=== PATIENT | male | born 1960 | race Caucasian/White ===

== ENCOUNTER 2023-08-17 15:00 | Inpatient (IN) | payer MEDICARE, MEDICAID, SELFPAY ==
[2023-08-17] VITALS (33 sets, daily range): BP systolic 94–154; BP diastolic 59–103; PULSE 72–91; RESP 14–35; TEMP 36.4–36.7; O2SAT 87–98; BMI 29.0
--- NOTE | ~2023-08-17 | XR_ITS ---
XR chest 1V portable 08/18/2023 15:31 Indication: Shortness of breath and cough Procedure: AP portable chest Comparison: Comparison to multiple prior studies sequentially, with oldest reviewed study dated 10/08. Findings: Worsening bilateral airspace disease, left greater than right, compatible with pneumonia. S mall left pleural effusion. No pneumothorax. Stable cardiomediastinal silhouette. No acute osseous ab normality. Impression: 1: Worsening bilateral airspace disease, compatible with pneumonia. Reviewed, dictated and finalized at location L. DATION STAGE TEACHER Impression: 1: Worsening bilateral airspace disease, compatible with pneumonia.
--- NOTE | ~2023-08-17 | XR_ITS ---
XR chest 1V portable 08/17/2023 16:20 Indication: Cough and shortness of breath Procedure: 2 view chest Comparison: 10/14/2016 Findings: Patchy bilateral airspace disease, compatible with pneumonia. Cardiomegaly. Small left pleu ral effusion. No pneumothorax. Impression: 1: Patchy bilateral airspace disease, compatible with pneumonia. 2: Small left pleural effusion. Reviewed, dictated and finalized at location B. 'S OFFICER Impression: 1: Patchy bilateral airspace disease, compatible with pneumonia. 2: Small left pleural effusion.
--- NOTE | ~2023-08-17 | CT_ITS ---
EXAMINATION: CT brain wo con DATE: 08/17/2023 18:59 INDICATION: Altered mental status TECHNIQUE: Computed tomography (CT) of the head was performed without intravenous contrast. Sagittal and coronal reconstructions were performed. The mA was adjusted according to patient size. Iterative reconstruction technique was employed. The dose-length product was 681.00 mGy-cm. COMPARISON: None FINDINGS: There is a region of encephalomalacia extending from the body of the left caudate nucleus across the internal capsule, lentiform nucleus into the subinsular white matter consistent with chronic infarct. Additional small regions of encephalomalacia consistent with old infarcts at the posterior left temp oral lobe and at the inferomedial right cerebellar hemisphere. Additional small old lacunar infarcts at the head of the right caudate nucleus and bilateral thalami. No acute intracranial hemorrhage, acu te infarction or abnormal extra axial fluid collection. There is moderate scattered white matter hypo attenuation consistent with chronic small vessel ischemic disease. In addition to some ex vacuo dilat ion of the body the left lateral ventricle there is otherwise symmetric increased prominence of the s ulci and ventricles consistent with mild to moderate diffuse cerebral volume loss. No mass/mass effe ct. There is a small the shape and right globe with associated dystrophic calcifications consistent w ith phthisis bulbi. Some additional dystrophic calcification at the posterior medial left globe. Ther e is a region of subtly increased density within the posterior to posterolateral left globe which sug gests possible retinal detachment. Correlate with ophthalmic history . There is near complete opacifi cation of the paranasal sinuses with diffusely thickened sclerotic barker consistent with chronic sinu sitis. The bilateral mastoid air cells and middle ear cavities are clear. There is debris/cerumen at the bilateral external auditory canals. Intracranial calcified cerebral atherosclerosis is noted. IMPRESSION: 1. Several old infarcts in the bilateral basal ganglia, left cerebral hemisphere and right cerebral h emisphere. No acute intracranial process. 2. Likely age-related mild to moderate diffuse volume loss and moderate scattered white matter hypoat tenuation consistent with chronic small vessel ischemic disease. 3. Chronic pansinusitis. 4. Right-sided phthisis bulbi and suggestion of possible detached retina at the left globe. Correlate with ophthalmic history. Reviewed, dictated and finalized at location A. ON BALER IMPRESSION: 1. Several old infarcts in the bilateral basal ganglia, left cerebral hemispher e and right cerebral hemisphere. No acute intracranial process. 2. Likely age-related mild to moderate diffuse volume loss and moderate scatter ed white matter hypoattenuation consistent with chronic small vessel ischemic d isease. 3. Chronic pansinusitis. 4. Right-sided phthisis bulbi and suggestion of possible detached retina at the left globe. Correlate with ophthalmic history.
--- NOTE | ~2023-08-17 | XR_ITS ---
Portable chest x-ray Comparison: 08/18/2023 Clinical History: Pneumonia Findings: Small left pleural effusion is present. Extensive left lung consolidation and additional c onsolidation the right lung base, are stable findings from prior exam. Cardiomediastinal silhouette is stable. Bones and soft tissues are unremarkable. Impression: Stable extensive left lung consolidation, compatible with multilobar pneumonia. Right basilar consolidation, compatible with additional pneumonia. Small left pleural effusion. Reviewed, dictated and finalized at location . CE SECRETARY Impression: Stable extensive left lung consolidation, compatible with multilobar pneumonia. Right basilar consolidation, compatible with additional pneumonia. Small left pleural effusion.
--- NOTE | 2023-08-17 15:36 | ECG_ITS ---
Measurements Intervals [place] Rate: 76 P: MI: 0 QRS: 75 QRSD: 154 T: 29 QT: 464 QTc: 525 Interpretive Statements ATRIAL FIBRILLATION RIGHT BUNDLE BRANCH BLOCK ABNORMAL ECG NO PREVIOUS ECG AVAILABLE FOR COMPARISON Electronically Signed On 08-17-2023 16:44:16 BALANCE CLERK by Capo Reynolds D.O.
[2023-08-17 16:02] LABS: Basophils Absolute Auto 0.1 K/mm3 (0.0-0.1); Basophils Percent Auto 0.3 % (0.2-1.2); Eosinophils Percent Auto 0.1 % (0-4.4); Hematocrit 34.5 % (42.0-52.0); Hemoglobin 10.8 g/dL (14.0-18.0); Immature Granulocyte Absolute 0.18 K/mm3 (0.00-0.031); Immature Granulocyte Percent A 0.9 % (0-0.5); Lymphocytes Absolute Auto 0.99 K/mm3 (0.9-3.2); Mean Corpuscular HGB Conc 31.3 g/dl (32-36); Mean Corpuscular Hemoglobin 30.1 pg (26-34); Mean Corpuscular Volume 96.1 fl (80-100); Mean Platelet Volume 8.8 fl (7.4-10.4); Neutrophils Absolute Auto 17.5 K/mm3 (1.3-6.7); Neutrophils Percent Auto 88.7 % (45.5-73.1); Platelet Count Result 277 k/mm3 (150-375); Red Blood Count 3.59 M/mm3 (4.6-6.20); Red Cell Distribution Width 14.1 % (11.5-14.5); White Blood Count 19.7 K/mm3 (4.5-10.0)
--- NOTE | 2023-08-17 16:09 | PC.NURSE ---
catherine catheter exchanged on arrival to obtain clean urine sample. MD Vera aware.
[2023-08-17 16:14] LABS: Alanine Aminotransferase 14 U/L (6-50); Albumin Level 3.2 g/dL (3.5-5.1); Alkaline Phosphatase 88 U/L (38-126); Anion Gap 10 mmol/L (8-16); Aspartate Amino Transferase 25 U/L (17-59); Bilirubin,Total 0.8 mg/dL (0.2-1.3); Blood Urea Nitrogen 22 mg/dL (9-20); Calcium 8.5 mg/dL (8.4-10.2); Carbon Dioxide 36 mmol/L (22-30); Chloride 91 mmol/L (98-107); Estimated CRCL calculation 26 ml/min; Estimated Glomerular Filt Rate 21; Glucose 73 mg/dL (65-110); Potassium 3.3 mmol/L (3.4-5.0); Sodium 137 mmol/L (137-145)
--- NOTE | 2023-08-17 16:26 | PC.NURSE ---
per Patient, he lives in custodial in [place] but unsure name of custodial.
--- NOTE | 2023-08-17 16:31 | PC.NURSE ---
Called patient home number on dialysis information sheet and confirmed patient resides at [facility].
[2023-08-17 18:19] LABS: Alveolar/Arterial O2 Gradient 185.7 mmHg; Base Excess ABG 13.7 mEq/l (+/-2.0); Carboxyhemoglobin 1.1 % THb (0-2.0); Fractional Inspired Oxygen 40 %; HCO3 ABG 37.8 mEq/l (22.0-26.0); Methemoglobin ABG 0.3 %THb (0-1.5); Oxygen Content ABG 13.2 %vol (16.0-22.0); PCO2 ABG 45.8 mmHg (35.0-45.0); PO2 FiO2 Ratio Arterial Blood 1.17 %; Reduced Hemoglobin 14.9 %THb (0-5.0); Total Hemoglobin 11.2 g/dL (12.0-18.0)
[2023-08-17 18:21] LABS: PO2 ABG 46.8 mmHg (80.0-100.0); pH ABG 7.535 (7.350-7.450)
[2023-08-17 18:22] LABS: Device NASAL CANNULA; Oxyhemoglobin 83.7 % THb (90.0-100.0); Site Drawn RIGHT BRACHIAL
--- NOTE | 2023-08-17 18:29 | ED.URI ---
HPI - URI/Sore Throat General Chief Complaint: Upper Respiratory Infection <Annmarie Taveras PA-C - Last Filed: 08/18/23 03:59> Stated Complaint: cough, low o2 <Annmarie Taveras PA-C - Last Filed: 08/18/23 03:59> Time Seen by Provider: 08/17/23 16:52 <CALLIE Patel Last Filed: 08/18/23 03:59> Source: patient and old records reviewed <CALLIE Patel Last Filed: 08/18/23 03:59> Mode of arrival: EMS <CALLIE Patel Last Filed: 08/18/23 03:59> Limitations: clinical condition <CALLIE Patel Last Filed: 08/18/23 03:59> History of Present Illness HPI Narrative: Patient is a 63 y/o male, with PMH of ESRD on hemodialysis MWF (Dr. Morrissey), legal blindess, HTN, who presents the ED via EMS with report of hypoxia. Patient is a resident of [facility]. Patient is a poor historian. Per EMS report, patient was noted be hypoxic in the 60s at his dialysis appointment today. He was placed on 2 L nasal cannula by EMS, ranging in the upper 80s to low 90s. He has been on 5 L nasal cannula in the ED with oxygen saturations above 90. Patient does not typically require oxygen. He has had a productive cough for the last 2 months reportedly. He is unable to provide any further information for me. <CALLIE Patel Last Filed: 08/18/23 03:59> Related Data Home Medications: Home Medications Medication Instructions Recorded Confirmed Keppra 500 mg PO BID 08/17/23 08/17/23 Miralax 17 g PO PRN PRN Constipation 08/17/23 08/17/23 Norvasc 10 mg PO DAILY 08/17/23 08/17/23 Prozac 20 mg PO DAILY 08/17/23 08/17/23 Singulair 1 tablet PO HS 08/17/23 08/17/23 Tums 750 mg PO HS 08/17/23 08/17/23 amlodipine 10 mg tablet 10 mg PO DAILY 08/17/23 08/17/23 apixaban 2.5 mg tablet (Eliquis) 2.5 mg PO BID 08/17/23 08/17/23 aspirin 81 mg PO DAILY 08/17/23 08/17/23 atorvastatin 20 mg tablet 20 mg PO DAILY 08/17/23 08/17/23 carvedilol 3.125 mg tablet 3.125 mg PO BID 08/17/23 08/17/23 cholecalciferol (vitamin D3) 2,000 units PO DAILY 08/17/23 08/17/23 fluoxetine 20 mg capsule 20 mg PO DAILY 08/17/23 08/17/23 insulin glargine 100 unit/mL (3 15 unit subcut HS 08/17/23 08/17/23 mL) subcutaneous pen (Lantus Solostar U-100 Insulin) isosorbide mononitrate 60 mg 60 mg PO BID 08/17/23 08/17/23 tablet,extended release 24 hr levetiracetam 500 mg tablet 500 mg PO BID 08/17/23 08/17/23 melatonin 5 mg PO HS 08/17/23 08/17/23 montelukast 10 mg tablet 10 mg PO DAILY 08/17/23 08/17/23 pantoprazole 40 mg tablet,delayed 40 mg PO DAILY 08/17/23 08/17/23 release pen needle, diabetic, safety 30 08/17/23 08/17/23 gauge x 5/16 (Easy Touch Safety Pen Needle) pentoxifylline 400 mg 400 mg PO TID 08/17/23 08/17/23 tablet,extended release tamsulosin 0.4 mg capsule 0.4 mg PO DAILY 08/17/23 08/17/23 <Annmarie Taveras PA-C - Last Filed: 08/18/23 03:59> Allergies/Adverse Reactions: Allergies Allergy/AdvReac Type Severity Reaction Status Date / Time bacitracin Allergy Unknown Unknown Verified 08/17/23 22:42 gramicidin D Allergy Unknown Unknown Verified 08/17/23 22:42 neomycin Allergy Unknown Unknown Verified 08/18/23 08:08 polymyxin B Allergy Unknown Unknown Verified 08/17/23 22:42 Dairy Allergy Unknown Unknown Uncoded 08/17/23 22:42 <Annmarie Taveras PA-C - Last Filed: 08/18/23 03:59> Review of Systems Review of Systems: ROS unobtainable: Yes unobtainable due to medical condition <Annmarie Taveras PA-C - Last Filed: 08/18/23 03:59> [facility] Social History Social History: Social History Smoking status: Never smoker Alcohol intake: former Substance use: former Substance use type: crack/cocaine Last use: 2012 Spiritual care concerns: No <Annmarie Taveras PA-C - Last Filed: 08/18/23 03:59> Exam Narrative: GENERAL: Chronic
[2023-08-17 19:06] LABS: Lactic Acid Reflex 1.2 mmol/L (0.7-2.0); Magnesium 1.9 mg/dL (1.6-2.3)
[2023-08-17 19:11] LABS: Appearance Urine Turbid (Clear); Bacteria Urine 4+ /hpf; Bilirubin Urine Negative (Negative); Blood Urine 2+ (Negative); Color Urine Yellow (Yellow); Glucose Urine UA Negative (Negative); Ketones Urine 1+ mg/dL (Negative); Leukocyte Esterase Ur 3+ LEU/UL (Negative); Need Manual Microscopic Reviewed; Nitrate Urine Negative (Negative); Protein Urine 4+ mg/dL (Negative); RBC Urine >100 /hpf (0-2); Specific Grav Ur 1.026 (1.001-1.035); Squamous Epithelial Cell Urine Many /hpf (Few); WBC Urine >100 /hpf; pH Urine 6.5 (5.0-9.0)
[2023-08-17 19:15] LABS: Amorphous Sediment Urine Present
[2023-08-17 19:16] LABS: Add Urine Microscopic? YES; NT Pro B Type Natriuretic Pept > 30000 pg/mL (19.9-100)
[2023-08-17] MEDS: AZITHROMYCIN 500 MG/NS 250 ML 500 MG/250 ML BAG 250 MG IVPB (20:00)
[2023-08-17 20:41] LABS: Glucose Point of Care 80 mg/dl (65-105)
[2023-08-17 21:28] LABS: Influenza A QL RT-PCR Negative (Negative); Influenza B QL RT-PCR Negative (Negative); RSV RNA, RT-PCR Negative (Negative); SARS-CoV-2 RNA PCR Negative (Negative)
--- NOTE | 2023-08-17 21:56 | ADMGEN ---
This patient, Ja Griffith, was admitted to [facility] Surg Room 332-02. Patient/family oriented to hospital policies and general routines including ID bracelet, bed and alarms, visiting hours, pain management, procedures, bathroom and other care routines, personal items, smoking policy, room service/diet, and visiting hours. Information on how to activate the Rapid Response Team has been discussed. Patient/Family are encouraged to report perceived risks to care and to ask questions if they do not understand what they are told or what they should do.
--- NOTE | 2023-08-17 23:48 | PC.NURSE ---
This RN called pt brother, [place], to receive admission information as pt is a poor historian. This RN used external med records and paperwork from dialysis facility to complete patient home med records.
[2023-08-18] VITALS (24 sets, daily range): BP systolic 119–156; BP diastolic 59–69; PULSE 62–89; RESP 14–24; TEMP 36.4–37.3; O2SAT 90–95
[2023-08-18 06:49] LABS: Basophils Absolute Auto 0.1 K/mm3 (0.0-0.1); Basophils Percent Auto 0.4 % (0.2-1.2); Eosinophils Percent Auto 0.1 % (0-4.4); Hematocrit 31.6 % (42.0-52.0); Hemoglobin 9.8 g/dL (14.0-18.0); Immature Granulocyte Absolute 0.15 K/mm3 (0.00-0.031); Immature Granulocyte Percent A 0.9 % (0-0.5); Lymphocytes Absolute Auto 0.69 K/mm3 (0.9-3.2); Lymphocytes Percent Auto 4.1 % (18.3-44.2); Mean Corpuscular Hemoglobin 30.6 pg (26-34); Mean Corpuscular Volume 98.8 fl (80-100); Mean Platelet Volume 8.7 fl (7.4-10.4); Monocytes Percent Auto 5.7 % (2.6-8.5); Neutrophils Percent Auto 88.8 % (45.5-73.1); Platelet Count Result 233 k/mm3 (150-375); Red Cell Distribution Width 14.3 % (11.5-14.5); White Blood Count 16.9 K/mm3 (4.5-10.0)
[2023-08-18 07:16] LABS: Alanine Aminotransferase 14 U/L (6-50); Albumin Level 2.9 g/dL (3.5-5.1); Alkaline Phosphatase 88 U/L (38-126); Anion Gap 9 mmol/L (8-16); Aspartate Amino Transferase 21 U/L (17-59); Bilirubin,Total 0.7 mg/dL (0.2-1.3); Blood Urea Nitrogen 28 mg/dL (9-20); Calcium 7.9 mg/dL (8.4-10.2); Carbon Dioxide 33 mmol/L (22-30); Chloride 91 mmol/L (98-107); Estimated CRCL calculation 16 ml/min; Estimated Glomerular Filt Rate 14; Glucose 187 mg/dL (65-110); Potassium 3.5 mmol/L (3.4-5.0); Sodium 133 mmol/L (137-145)
[2023-08-18 07:37] LABS: Glucose Point of Care 177 mg/dl (65-105)
[2023-08-18 08:01] LABS: Hepatitis B Surface Antigen Negative (Negative)
--- NOTE | 2023-08-18 08:03 | PM.IMPN ---
Progress Note: A&P Assessment and Plan (1) Pneumonia: Qualifiers: Laterality: bilateral Lung location: unspecified part of lung Pneumonia type: due to unspecified organism Qualified Code(s): J18.9 - Pneumonia, unspecified organism Code(s): J18.9 - Pneumonia, unspecified organism Status: Acute (2) Acute hypoxic respiratory failure: Code(s): J96.01 - Acute respiratory failure with hypoxia Status: Acute (3) ESRD on hemodialysis: Code(s): N18.6 - End stage renal disease; Z99.2 - Dependence on renal dialysis Status: Acute Plan 63M, a poor historian who resides at [facility] w/ [facility] ESRD on HD MWF (Dr. Morrissey), legal blindness, IDDM, left BKA, diabetic nephropathy, HTN, a fib on eliquis, BPH, hx of stroke, seizures, anxiety presented with reports of hypoxia in 60's at his dialysis appointment on 08/17, on 6L NC by the time he was admitted. # acute hypoxic respiratory failure - 2/2 to CAP. cont ceftriaxone and doxycycline started on 08/17 - f/u wbc and blood cultures - telemetry and cont pulse ox until weaned off oxygen - wheezing on exam, no hx of lung disease, start duonebs on 08/18 and re-assess. he does take montelukast at home # UTI - dx on admission, however urine sample dirty. being covered otherwise, follow up on urine cultures # ESRD on HD MWF - nephrology consulted. continue regular dialysis sessions # NIDDM - accuchecks and LDISS # HTN - controlled. cpm # a fib on eliquis - cont tele and eliquis FEN: renal diabetic diet, saline lock IV GI prophylaxis: on protonix DVT prophylaxis: eliquis Lines: pIV Code Status: Full Code Dispo: stable. 50+ minutes spent on chart review, patient interaction, family planning, and assessment and plan. Subjective Date/time seen: 08/18/23 08:03 Interval history: patient resting in bed, he reports feeling fine. he is quite the poor historian although. when asked if he ever smoked he states, maybe Review of Systems Review of Systems: All systems reviewed & are unremarkable except as noted in HPI and below Exam Const: General: comfortable and no acute distress Other: quite unwilling to participate with exam at the moment Resp: Effort & Inspection: normal respiratory effort Auscultation: wheezes Cardio: Rate: regular rate Rhythm: regular rhythm Heart sounds: no gallops, no murmurs and no rubs Other: pulses 2+ throughout Extrem: General: no edema Objective Data Vital Signs Vital Signs: Vital Signs - 24 hr 08/17/23 15:01 08/17/23 16:20 08/17/23 16:20 Temperature 98.1 F Pulse Rate 79 74 Respiratory Rate 22 H 25 H Blood Pressure 132/72 129/85 Pulse Oximetry 91 93 95 Oxygen Delivery Nasal Cannula Nasal Cannula Oxygen Flow Rate 5 4 08/17/23 16:20 08/17/23 16:30 08/17/23 16:31 Temperature Pulse Rate 86 78 81 Respiratory Rate 31 H 27 H 27 H Blood Pressure 133/71 Pulse Oximetry 95 94 94 Oxygen Delivery Oxygen Flow Rate 08/17/23 16:45 08/17/23 16:46 08/17/23 17:00 Temperature Pulse Rate 85 91 91 Respiratory Rate 32 H 32 H 31 H Blood Pressure 143/88 H Pulse Oximetry 92 92 Oxygen Delivery Oxygen Flow Rate 08/17/23 17:01 08/17/23 17:15 08/17/23 17:16 Temperature Pulse Rate 86 84 83 Respiratory Rate 31 H 17 14 Blood Pressure 141/70 H 94/82 L Pulse Oximetry 94 98 95 Oxygen Delivery Oxygen Flow Rate 08/17/23 17:30 08/17/23 17:31 08/17/23 17:45 Temperature Pulse Rate 79 75 83 Respiratory Rate 27 H 32 H 26 H Blood Pressure 146/79 H Pulse Oximetry 90 Oxygen Delivery Oxygen Flow Rate 08/17/23 17:46 08/17/23 18:00 08/17/23 18:02 Temperature Pulse Rate 77 76 76 Respiratory Rate 18 26 H 34 H Blood Pressure 137/103 H 127/89 Pulse Oximetry 87 L 92 93 Oxygen Delivery Oxygen Flow Rate 08/17/23 18:45 08/17/23 18:50 08/17/23 19:01 Temperature Pulse Rate 81 Respiratory Rate
--- NOTE | 2023-08-18 08:14 | HP_ITS ---
This document was recreated as a H&P on 08/19/23. The original document was signed by Jody Hendricks MD on 08/18/23 0815. Progress Note: A&P Assessment and Plan (1) Pneumonia: Qualifiers: Laterality: bilateral Lung location: unspecified part of lung Pneumonia type: due to unspecified organism Qualified Code(s): J18.9 - Pneumonia, unspecified organism Code(s): J18.9 - Pneumonia, unspecified organism Status: Acute (2) Acute hypoxic respiratory failure: Code(s): J96.01 - Acute respiratory failure with hypoxia Status: Acute (3) ESRD on hemodialysis: Code(s): N18.6 - End stage renal disease; Z99.2 - Dependence on renal dialysis Status: Acute Plan 63M, a poor historian who resides at [facility] / [facility] ESRD on HD MWF (Dr. Morrissey), legal blindness, IDDM, left BKA, diabetic nephropathy, HTN, a fib on eliquis, BPH, hx of stroke, seizures, anxiety presented with reports of hypoxia in 60's at his dialysis appointment on 08/17, on 6L NC by the time he was admitted. # acute hypoxic respiratory failure - 2/2 to CAP. cont ceftriaxone and doxycycline started on 08/17 - f/u wbc and blood cultures - telemetry and cont pulse ox until weaned off oxygen - wheezing on exam, no hx of lung disease, start duonebs on 08/18 and re-assess. he does take montelukast at home # UTI - dx on admission, however urine sample dirty. being covered otherwise, follow up on urine cultures # ESRD on HD MWF - nephrology consulted. continue regular dialysis sessions # NIDDM - accuchecks and LDISS # HTN - controlled. cpm # a fib on eliquis - cont tele and eliquis FEN: renal diabetic diet, saline lock IV GI prophylaxis: on protonix DVT prophylaxis: eliquis Lines: pIV Code Status: Full Code Dispo: stable. 50+ minutes spent on chart review, patient interaction, family planning, and assessment and plan. Subjective Date/time seen: 08/18/23 08:03 Interval history: patient resting in bed, he reports feeling fine. he is quite the poor historian although. when asked if he ever smoked he states, maybe Review of Systems Review of Systems: All systems reviewed & are unremarkable except as noted in HPI and below Exam Const: General: comfortable and no acute distress Other: quite unwilling to participate with exam at the moment Resp: Effort & Inspection: normal respiratory effort Auscultation: wheezes Cardio: Rate: regular rate Rhythm: regular rhythm Heart sounds: no gallops, no murmurs and no rubs Other: pulses 2+ throughout Extrem: General: no edema Objective Data Vital Signs Vital Signs: Vital Signs - 24 hr 08/17/23 15:01 08/17/23 16:20 08/17/23 16:20 Temperature 98.1 F Pulse Rate 79 74 Respiratory Rate 22 H 25 H Blood Pressure 132/72 129/85 Pulse Oximetry 91 93 95 Oxygen Delivery Nasal Cannula Nasal Cannula Oxygen Flow Rate 5 4 08/17/23 16:20 08/17/23 16:30 08/17/23 16:31 Temperature Pulse Rate 86 78 81 Respiratory Rate 31 H 27 H 27 H Blood Pressure 133/71 Pulse Oximetry 95 94 94 Oxygen Delivery Oxygen Flow Rate 08/17/23 16:45 08/17/23 16:46 08/17/23 17:00 Temperature Pulse Rate 85 91 91 Respiratory Rate 32 H 32 H 31 H Blood Pressure 143/88 H Pulse Oximetry 92 92 Oxygen Delivery Oxygen Flow Rate 08/17/23 17:01 08/17/23 17:15 08/17/23 17:16 Temperature Pulse Rate 86 84 83 Respiratory Rate 31 H 17 14
[2023-08-18 08:19] LABS: Hepatitis B Surface Anti Res Negative
[2023-08-18] MEDS: ALBUTEROL SULFATE NEB 2.5 MG/3 ML INH INHALATION ×3 (08:24→19:27)
[2023-08-18] MEDS: IPRATROPIUM BR 0.02% INH SOLN 0.5 MG/2.5 ML VIAL INHALATION ×3 (08:24→19:27)
[2023-08-18] MEDS: DOXYCYCLINE 100 MG/NS 100 ML 100 MG/100 ML BAG IVPB ×2 (10:57→20:43)
--- NOTE | 2023-08-18 11:10 | PM.CNNEP ---
Assessment and Plan Assessment and plan (1) End stage renal disease: Code(s): N18.6 - End stage renal disease Status: Chronic Assessment and Plan: HD tomorrow continue Thursday, Thursday, Thursday dialysis schedule folloe electrolytes, clearance, and volume status (2) Acute hypoxic respiratory failure: Code(s): J96.01 - Acute respiratory failure with hypoxia Status: Acute Assessment and Plan: though to be secondary to #3 continue oxygen support nebulizer treatments as needed follow respiratory status (3) Pneumonia: Qualifiers: Laterality: bilateral Lung location: unspecified part of lung Pneumonia type: due to unspecified organism Qualified Code(s): J18.9 - Pneumonia, unspecified organism Code(s): J18.9 - Pneumonia, unspecified organism Status: Acute Assessment and Plan: as suggested by admission imaging follow culture data on antibiotics wean supplemental oxygen (4) Urinary tract infection: Qualifiers: Encounter type: initial encounter Indwelling urinary catheter type: indwelling urethral catheter Urinary tract infection type: catheter-associated UTI Qualified Code(s): T83.511A - Infection and inflammatory reaction due to indwelling urethral catheter, initial encounter; N39.0 - Urinary tract infection, site not specified Code(s): N39.0 - Urinary tract infection, site not specified Status: Acute Assessment and Plan: admission UA suggestive follow urine culture results on antibiotics (5) Hypertension: Code(s): I10 - Essential (primary) hypertension Status: Chronic Assessment and Plan: reasonable control follow trend of hemodynamics (6) Type 2 diabetes mellitus: Code(s): E11.9 - Type 2 diabetes mellitus without complications Status: Chronic Assessment and Plan: follow accu-cheks glycemic control per hospitalists I will continue follow the patient with you remains hospitalized and make recommendations as needed. Thank you for allowing me to participate in the care this patient. History of Present Illness Reason for Consult Consult date: 08/18/23 Reason for consult: end stage renal disease Chief Complaint Chief complaint: PNA, Acute Hypoxic Respiratory Failure, UTI, ESRD History of Present Illness Narrative: Most of the information I have obtained is from review of the electronic medical record as well as discussion with his outpatient dialysis unit as his difficult to get a full and complete history from the patient as he is a poor historian. The patient is a 63-year-old male with a past medical history as outlined below who presented to [facility] via EMS for further evaluation of hypoxia. Apparently, the patient went to his scheduled dialysis appointment yesterday and the dialysis nursing staff noted that he was quite hypoxic with oxygen saturations of 60% on room air. EMS was called due to this issue and 2 L of supplemental oxygen were applied with his oxygen saturations improving to the high 80s to low 90s percentile range. He was subsequent transferred to the emergency room for further assessment. By the time of his arrival to the emergency room, he was requiring 5 L of oxygen to maintain his oxygen saturations. He typically does not require oxygen although on further questioning and review of records, he apparently has been having a cough for the last 2 months. His ABG demonstrated no significant respiratory acidosis or CO2 retention but did confirm his hypoxia with an oxygen saturation of 87% on 5 L and hence his oxygen was increased to 6 L. His CBC was remarkable for an elevated white blood cell count of 19.7 with a neutrophil predominance but no bandemia. Lactic acid was normal and his chest x-ray was consistent with what appeared to be pneumonia. Viral swabs were negative. Blood cultures were obtained and he was
[2023-08-18 12:30] LABS: Glucose Point of Care 212 mg/dl (65-105)
[2023-08-18 15:13] LABS: Alveolar/Arterial O2 Gradient 244.3 mmHg; Base Excess ABG 7.2 mEq/l (+/-2.0); Fractional Inspired Oxygen 48 %; Oxygen Content ABG 13.5 %vol (16.0-22.0); Oxygen Saturation ABG 89.3 % (95.0-100.0); PO2 ABG 51.6 mmHg (80.0-100.0); PO2 FiO2 Ratio Arterial Blood 1.07 %; pH ABG 7.497 (7.350-7.450)
[2023-08-18 15:20] LABS: Device HIGH FLOW NASAL CANN; Modified Allen's Test Pass; Oxyhemoglobin 87.4 % THb (90.0-100.0); Site Drawn RIGHT RADIAL
[2023-08-18 17:12] LABS: Glucose Point of Care 241 mg/dl (65-105)
[2023-08-18] MEDS: MEROPENEM 1 GM/NS 100 ML 1 GM/100 ML BAG IVPB (18:11)
[2023-08-18] MEDS: INSULIN ASPART (*BKC) 100 UNITS/ML SUB-Q (19:11)
--- NOTE | 2023-08-18 20:37 | PC.NURSE ---
This patient, Ja Griffith, was received from [[id number] ] on 08/18/23 at 1800. Patient/family oriented to unit policies and routines
[2023-08-18 21:18] LABS: Glucose Point of Care 221 mg/dl (65-105)
[2023-08-19] VITALS (45 sets, daily range): BP systolic 130–164; BP diastolic 55–96; PULSE 60–110; RESP 16–24; TEMP 36.1–37.9; O2SAT 91–100
[2023-08-19] MEDS: IPRATROPIUM BR 0.02% INH SOLN 0.5 MG/2.5 ML VIAL INHALATION ×3 (01:34→20:06)
[2023-08-19] MEDS: ALBUTEROL SULFATE NEB 2.5 MG/3 ML INH INHALATION ×3 (01:34→20:06)
[2023-08-19 05:10] LABS: Basophils Absolute Auto 0.1 K/mm3 (0.0-0.1); Basophils Percent Auto 0.4 % (0.2-1.2); Eosinophils Percent Auto 0.1 % (0-4.4); Hemoglobin 9.8 g/dL (14.0-18.0); Immature Granulocyte Absolute 0.36 K/mm3 (0.00-0.031); Immature Granulocyte Percent A 2.1 % (0-0.5); Lymphocytes Absolute Auto 0.75 K/mm3 (0.9-3.2); Lymphocytes Percent Auto 4.4 % (18.3-44.2); Mean Corpuscular HGB Conc 31.6 g/dl (32-36); Mean Corpuscular Hemoglobin 30.3 pg (26-34); Monocytes Absolute Auto 0.8 K/mm3 (0.1-0.6); Monocytes Percent Auto 4.5 % (2.6-8.5); Neutrophils Absolute Auto 15.1 K/mm3 (1.3-6.7); Neutrophils Percent Auto 88.5 % (45.5-73.1); Platelet Count Result 214 k/mm3 (150-375); Red Blood Count 3.23 M/mm3 (4.6-6.20); Red Cell Distribution Width 14.3 % (11.5-14.5); White Blood Count 17.1 K/mm3 (4.5-10.0)
[2023-08-19 05:32] LABS: Vancomycin Random 16.6 ug/mL (10-20)
[2023-08-19 05:34] LABS: Anion Gap 13 mmol/L (8-16); Blood Urea Nitrogen 45 mg/dL (9-20); Calcium 7.9 mg/dL (8.4-10.2); Carbon Dioxide 27 mmol/L (22-30); Chloride 85 mmol/L (98-107); Estimated CRCL calculation 13 ml/min; Estimated Glomerular Filt Rate 11; Glucose 216 mg/dL (65-110); Potassium 3.8 mmol/L (3.4-5.0); Sodium 125 mmol/L (137-145)
[2023-08-19] MEDS: DOXYCYCLINE 100 MG/NS 100 ML 100 MG/100 ML BAG IVPB ×2 (07:15→20:49)
--- NOTE | 2023-08-19 08:10 | PM.IMPN ---
Progress Note: A&P Assessment and Plan (1) Pneumonia: Qualifiers: Laterality: bilateral Lung location: unspecified part of lung Pneumonia type: due to unspecified organism Qualified Code(s): J18.9 - Pneumonia, unspecified organism Code(s): J18.9 - Pneumonia, unspecified organism Status: Acute (2) Acute hypoxic respiratory failure: Code(s): J96.01 - Acute respiratory failure with hypoxia Status: Acute (3) ESRD on hemodialysis: Code(s): N18.6 - End stage renal disease; Z99.2 - Dependence on renal dialysis Status: Acute (4) Urinary tract infection: Qualifiers: Encounter type: initial encounter Indwelling urinary catheter type: indwelling urethral catheter Urinary tract infection type: catheter-associated UTI Qualified Code(s): T83.511A - Infection and inflammatory reaction due to indwelling urethral catheter, initial encounter; N39.0 - Urinary tract infection, site not specified Code(s): N39.0 - Urinary tract infection, site not specified Status: Acute Plan 63M, a poor historian who resides at [facility] / [place] ESRD on HD MWF (Dr. Morrissey),?legal blindness, IDDM, left BKA, diabetic nephropathy, HTN, a fib on eliquis, BPH, hx of stroke, seizures, anxiety presented with reports of hypoxia in 60's at his dialysis appointment on 08/17, on 6L NC by the time he was admitted. # acute hypoxic respiratory failure - 2/2 to?CAP. cont ceftriaxone and doxycycline started on 08/17 - f/u wbc and blood cultures, and procalcitonin - telemetry and cont pulse ox until weaned off oxygen - wheezing on exam, no hx of lung disease, start duonebs on 08/18 and re-assess. he does take montelukast at home - 08/18 in evening, desaturations. transferred IMU and on 08/19 is stable on 40L HFNC at 60% fio2. He isn't symptomatic, however CXR looks worse. ABG hypercapnia resolved. wheezing resolved. on 08/18 abx switched to cefepime and vancomycin, along with doxycycline. pending legionella and pneumococcal urinary antigens and sputum culture. stable on morning of 08/19, if need can upgrade to BIPAP and then ICU ultimately. nares MRSA positive, in light of his worsening status just 12 hours ago it behooves this patient to have double MRSA coverage for at least another day. # acute hyponatremia - spoke with Dr. Coelho, reportedly from dialysis center he is always waxing and waning from A&Ox1-3. this appears to be his baseline. he is to go for dialysis today, and with that will defer sodium mgmt to nephrology. cont daily BMP otherwise. # UTI - dx on admission, however urine sample dirty. being covered otherwise, follow up on urine cultures # ESRD on HD MWF - nephrology consulted. continue regular dialysis sessions # NIDDM - accuchecks and LDISS # HTN - controlled. cpm # a fib on eliquis - cont tele and eliquis FEN: renal diabetic diet, saline lock IV GI prophylaxis: on protonix DVT prophylaxis: eliquis Lines: pIV Code Status: Full Code. guarded More than 35 minutes spent on chart review, patient interaction and assessment and plan. Subjective Date/time seen: 08/19/23 08:10 Interval history: yesterday evening patient oxygen did not hold. he was upgraded to IMU, now on HFNC 40L/min w/ 60% fio2, however has been stable on that. he has never appears in respiratory distress although, and always reports no symptoms. he doesn't participate with exam Review of Systems Review of Systems: All systems reviewed & are unremarkable except as noted in HPI and below Exam Const: General: comfortable and no acute distress Other: A&Ox2, flat affect, limited participation with exam HENMT: Mouth: Yes dry mucous membranes Resp: Effort & Inspection: abnormal respiratory effort Cardio: Rate: regular rate Rhythm: regular rhythm Heart sounds: no gallops, no murmurs and no rubs GI: GI Palp: Yes Soft to palpation and No Tenderness to palpation present (GI) Extrem:
[2023-08-19 08:14] LABS: Glucose Point of Care 201 mg/dl (65-105)
[2023-08-19] MEDS: INSULIN ASPART (*BKC) 100 UNITS/ML SUB-Q (08:48)
[2023-08-19] MEDS: MEROPENEM 1 GM/NS 100 ML 1 GM/100 ML BAG IVPB (09:17)
[2023-08-19 12:06] LABS: Glucose Point of Care 165 mg/dl (65-105)
[2023-08-19] MEDS: HEPARIN SODIUM 1,000 UNITS/ML VIAL 2000 UNITS IV PUSH (14:19)
[2023-08-19] MEDS: HEPARIN SODIUM 1,000 UNITS/ML VIAL 500 UNITS IV PUSH ×3 (14:22→16:22)
--- NOTE | 2023-08-19 15:00 | PM.PNNEP ---
Progress Note: A&P Assessment and Plan (1) End stage renal disease: Code(s): N18.6 - End stage renal disease Status: Chronic Assessment and Plan: HD today continue Thursday, Thursday, Thursday dialysis schedule folloe electrolytes, clearance, and volume status (2) Acute hypoxic respiratory failure: Code(s): J96.01 - Acute respiratory failure with hypoxia Status: Acute Assessment and Plan: though to be secondary to #3 continue oxygen support nebulizer treatments as needed follow respiratory status (3) Pneumonia: Qualifiers: Laterality: bilateral Lung location: unspecified part of lung Pneumonia type: due to unspecified organism Qualified Code(s): J18.9 - Pneumonia, unspecified organism Code(s): J18.9 - Pneumonia, unspecified organism Status: Acute Assessment and Plan: as suggested by admission imaging follow culture data on antibiotics wean supplemental oxygen (4) Urinary tract infection: Qualifiers: Encounter type: initial encounter Indwelling urinary catheter type: indwelling urethral catheter Urinary tract infection type: catheter-associated UTI Qualified Code(s): T83.511A - Infection and inflammatory reaction due to indwelling urethral catheter, initial encounter; N39.0 - Urinary tract infection, site not specified Code(s): N39.0 - Urinary tract infection, site not specified Status: Acute Assessment and Plan: admission UA suggestive follow urine culture results on antibiotics (5) Hypertension: Code(s): I10 - Essential (primary) hypertension Status: Chronic Assessment and Plan: reasonable control follow trend of hemodynamics (6) Type 2 diabetes mellitus: Code(s): E11.9 - Type 2 diabetes mellitus without complications Status: Chronic Assessment and Plan: follow accu-cheks glycemic control per hospitalists Will continue to follow. Subjective Date/time seen: 08/19/23 15:00 Interval history: Follow-up for end stage renal disease on hemodialysis. Tolerating hemodialysis treatment at the time of my visit (seen on HD at 2:50PM); increasing oxygen requirements overnight but patient never reported any worsening symptoms of shortness of breath or difficulty breathing. Exam Narrative: General: WD/WN male in NAD Heart: normal S1 and S2; no rub Lungs: coarse breath sounds Abdomen: soft, nontender, nondistended, positive bowel sounds Extremities: no cyanosis or clubbing; no edema Skin: warm and dry Objective Data Vital Signs Vital Signs: Vital Signs Temp Pulse Resp BP Pulse Ox O2 Del Method O2 Flow Rate 08/19/23 14:15 64 20 97 High Flow Therapy with Na 34 08/19/23 14:00 87 08/19/23 13:20 97 F L 110 H 24 H 130/65 91 08/19/23 12:00 98 F 78 20 149/66 H 98 08/19/23 12:00 90 08/19/23 12:00 97 High Flow Therapy with Na 35 08/19/23 10:00 60 08/19/23 08:00 77 08/19/23 10:10 64 20 97 High Flow Therapy with Na 35 08/19/23 09:56 74 20 100 High Flow Therapy with Na 35 08/19/23 08:00 100 High Flow Therapy with Na 35 08/19/23 07:33 79 20 08/19/23 07:29 98.2 F 76 20 140/65 97 08/19/23 07:19 78 20 08/19/23 07:19 78 20 100 High Flow Therapy with Na 40 08/19/23 05:58 80 08/19/23 04:00 85 08/19/23 04:00 97.9 F 88 16 148/69 H 98 08/19/23 03:32 95 High Flow Therapy with Na 15 08/19/23 02:00 86 08/19/23 01:46 88 20 08/19/23 01:35 86 20 08/18/23 22:00 88 20 92 High Flow Therapy with Na 40 08/19/23 00:00 83 08/18/23 23:56 95 High Flow Therapy with Na 15 08/18/23 23:53 98.6 F 80 18 152/65 H 92 08/18/23 22:00 83 08/18/23 20:00 94 High Flow Therapy with Na 15 08/18/23 20:00 75 08/18/23 18:00 90 High Flow Nasal
[2023-08-19] MEDS: EPOETIN ALFA-EPBX 4,000 UNITS/ML VIAL 4000 UNITS IV PUSH (17:10)
[2023-08-19] MEDS: CEFEPIME 1 GM/NS 50 ML 1 GM/50 ML BAG IVPB (18:49)
[2023-08-19 18:59] LABS: Glucose Point of Care 121 mg/dl (65-105)
[2023-08-19] MEDS: VANCOMYCIN 750 MG/NS 250 ML 750 MG/250 ML BAG 250 MG IVPB (19:45)
[2023-08-19 20:36] LABS: Glucose Point of Care 150 mg/dl (65-105)
[2023-08-20] VITALS (24 sets, daily range): BP systolic 139–155; BP diastolic 57–83; PULSE 76–91; RESP 16–26; TEMP 36.2–38.2; O2SAT 92–100
[2023-08-20] MEDS: ALBUTEROL SULFATE NEB 2.5 MG/3 ML INH INHALATION ×2 (02:05→07:00)
[2023-08-20] MEDS: IPRATROPIUM BR 0.02% INH SOLN 0.5 MG/2.5 ML VIAL INHALATION ×2 (02:05→07:00)
[2023-08-20 05:00] LABS: Basophils Absolute Auto 0.1 K/mm3 (0.0-0.1); Basophils Percent Auto 0.4 % (0.2-1.2); Eosinophils Absolute Auto 0.3 K/mm3 (0-0.3); Eosinophils Percent Auto 2.1 % (0-4.4); Hematocrit 30.8 % (42.0-52.0); Hemoglobin 9.6 g/dL (14.0-18.0); Immature Granulocyte Absolute 0.36 K/mm3 (0.00-0.031); Immature Granulocyte Percent A 2.3 % (0-0.5); Lymphocytes Absolute Auto 0.66 K/mm3 (0.9-3.2); Lymphocytes Percent Auto 4.2 % (18.3-44.2); Mean Corpuscular HGB Conc 31.2 g/dl (32-36); Mean Corpuscular Hemoglobin 30.2 pg (26-34); Mean Corpuscular Volume 96.9 fl (80-100); Mean Platelet Volume 8.6 fl (7.4-10.4); Monocytes Absolute Auto 0.9 K/mm3 (0.1-0.6); Monocytes Percent Auto 5.7 % (2.6-8.5); Neutrophils Absolute Auto 13.3 K/mm3 (1.3-6.7); Neutrophils Percent Auto 85.3 % (45.5-73.1); Platelet Count Result 207 k/mm3 (150-375); Red Blood Count 3.18 M/mm3 (4.6-6.20); Red Cell Distribution Width 14.3 % (11.5-14.5); White Blood Count 15.6 K/mm3 (4.5-10.0)
[2023-08-20 05:30] LABS: Anion Gap 11 mmol/L (8-16); Blood Urea Nitrogen 25 mg/dL (9-20); Calcium 7.7 mg/dL (8.4-10.2); Carbon Dioxide 26 mmol/L (22-30); Chloride 90 mmol/L (98-107); Estimated CRCL calculation 22 ml/min; Estimated Glomerular Filt Rate 17; Glucose 202 mg/dL (65-110); Magnesium 1.8 mg/dL (1.6-2.3); Phosphorus 2.9 mg/dL (2.5-4.5); Potassium 3.8 mmol/L (3.4-5.0); Sodium 127 mmol/L (137-145)
[2023-08-20 05:34] LABS: Platelet Estimate Adequate (Adequate); Schistocytes Rare (NORMAL)
[2023-08-20 07:26] LABS: Glucose Point of Care 187 mg/dl (65-105)
--- NOTE | 2023-08-20 08:37 | PM.IMPN ---
Progress Note: A&P Assessment and Plan (1) Pneumonia: Qualifiers: Laterality: bilateral Lung location: unspecified part of lung Pneumonia type: due to unspecified organism Qualified Code(s): J18.9 - Pneumonia, unspecified organism Code(s): J18.9 - Pneumonia, unspecified organism Status: Acute (2) Acute hypoxic respiratory failure: Code(s): J96.01 - Acute respiratory failure with hypoxia Status: Acute (3) ESRD on hemodialysis: Code(s): N18.6 - End stage renal disease; Z99.2 - Dependence on renal dialysis Status: Acute (4) Urinary tract infection: Qualifiers: Encounter type: initial encounter Indwelling urinary catheter type: indwelling urethral catheter Urinary tract infection type: catheter-associated UTI Qualified Code(s): T83.511A - Infection and inflammatory reaction due to indwelling urethral catheter, initial encounter; N39.0 - Urinary tract infection, site not specified Code(s): N39.0 - Urinary tract infection, site not specified Status: Acute Plan 63M, a poor historian who resides at [facility] / [facility] ESRD on HD MWF (Dr. Morrissey),?legal blindness, IDDM, left BKA, diabetic nephropathy, HTN, a fib on eliquis, BPH, hx of stroke, seizures, anxiety presented with reports of hypoxia in 60's at his dialysis appointment on 08/17, on 6L NC by the time he was admitted. # acute hypoxic respiratory failure, resolving - 2/2 to?CAP. ceftriaxone and doxycycline started on admission, his o2 saturations dropped requiring 40L 60%fio AIRVO and he was switched to meropenem doxycyline and vancomycin. on 08/20 he is on 2 L nasal cannula, taken back down to cefepime and doxycycline only. MRSA nares positive. - procal and WBC downtrending, f/u urine, blood and sputum cultures. pending urinary antigens - telemetry and cont pulse ox - no more wheezing, dc'ed nebs. he does take montelukast at home but doesn't know why - telemetry and cont pulse ox until weaned off oxygen # UTI - dx on admission, however urine sample dirty. being covered otherwise, follow up on urine cultures # ESRD on HD MWF - nephrology consulted. continue regular dialysis sessions. last received 08/19 # NIDDM - accuchecks and LDISS. restart home insulin as he begins to eat more # HTN - controlled. cpm. restarted all home meds except for isosorbide mononitrate # a fib on eliquis - cont tele and eliquis. currently in SR FEN: renal diabetic diet, saline lock IV GI prophylaxis: on protonix DVT prophylaxis: eliquis Lines: pIV Code Status: Full Code. improved. transfer to med surg with tele. home when off oxygen More than 35 minutes spent on chart review, patient interaction and assessment and plan. Subjective Date/time seen: 08/20/23 08:37 Interval history: NAOE. pt is more awake today, he has no complaints while he sits up in bed eating breakfast (eggs) Review of Systems Review of Systems: All systems reviewed & are unremarkable except as noted in HPI and below Exam Const: General: comfortable and no acute distress Other: A&Ox2 Resp: Effort & Inspection: normal respiratory effort Auscultation: rhonchi Other: upper airway congestion Cardio: Rate: regular rate Rhythm: regular rhythm Heart sounds: no gallops, no murmurs and no rubs GI: GI Palp: Yes Soft to palpation and No Tenderness to palpation present (GI) Extrem: General: no edema Objective Data Vital Signs Vital Signs: Vital Signs - 24 hr 08/19/23 09:56 08/19/23 10:10 08/19/23 10:00 Temperature Pulse Rate 74 64 60 Respiratory Rate 20 20 Blood Pressure Pulse Oximetry 100 97 Oxygen Delivery High Flow Therapy with Na High Flow Therapy with Na Oxygen Flow Rate 35 35 Fraction of Inspired Oxygen 50 40 08/19/23 12:00 08/19/23 12:00 08/19/23 12:00 Temperature 98 F Pulse Rate 90 78 Respiratory Rate 20 Blood Pressure 149/66 H Pulse Oximetry 97 98 Oxygen Deliv
[2023-08-20] MEDS: DOXYCYCLINE 100 MG/NS 100 ML 100 MG/100 ML BAG IVPB ×2 (08:39→22:00)
[2023-08-20] MEDS: ATORVASTATIN 20 MG TABLET PO (09:17)
[2023-08-20] MEDS: FLUoxetine HCL 20 MG CAPSULE PO (09:17)
[2023-08-20] MEDS: PENTOXIFYLLINE 400 MG TABCR PO ×3 (09:17→17:52)
[2023-08-20] MEDS: PANTOPRAZOLE 40 MG TABLET PO (09:17)
[2023-08-20] MEDS: amLODIPine BESYLATE 5 MG TABLET 10 MG PO (09:17)
[2023-08-20] MEDS: levETIRAcetam 500 MG TABLET PO ×2 (09:17→17:52)
[2023-08-20] MEDS: APIXABAN 2.5 MG TABLET PO ×2 (09:17→17:52)
[2023-08-20] MEDS: CHOLECALCIFEROL 1,000 UNITS TABLET 2000 UNITS PO (09:17)
[2023-08-20] MEDS: TAMSULOSIN HCL 0.4 MG CAPSULE PO (09:17)
[2023-08-20] MEDS: MONTELUKAST SODIUM 10 MG TABLET PO (09:17)
[2023-08-20] MEDS: ASPIRIN 81 MG CHEWABLE TABLET PO (09:17)
[2023-08-20] MEDS: carvediloL 3.125 MG TABLET PO ×2 (09:17→17:52)
[2023-08-20 11:30] LABS: Glucose Point of Care 234 mg/dl (65-105)
[2023-08-20] MEDS: INSULIN ASPART (*BKC) 100 UNITS/ML SUB-Q ×2 (12:43→21:46)
--- NOTE | 2023-08-20 13:03 | PC.NURSE ---
This patient, Ja Griffith, was received from IMU 203 on 08/20/23 at 1258. Patient/family oriented to unit policies and routines. Report received per Elissa DENTON
--- NOTE | 2023-08-20 14:16 | PM.PNNEP ---
Progress Note: A&P Assessment and Plan (1) End stage renal disease: Code(s): N18.6 - End stage renal disease Status: Chronic Assessment and Plan: HD tomorrow continue Thursday, Thursday, Thursday dialysis schedule follow electrolytes, clearance, and volume status (2) Acute hypoxic respiratory failure: Code(s): J96.01 - Acute respiratory failure with hypoxia Status: Acute Assessment and Plan: though to be secondary to #3 continue oxygen support nebulizer treatments as needed follow respiratory status (3) Pneumonia: Qualifiers: Laterality: bilateral Lung location: unspecified part of lung Pneumonia type: due to unspecified organism Qualified Code(s): J18.9 - Pneumonia, unspecified organism Code(s): J18.9 - Pneumonia, unspecified organism Status: Acute Assessment and Plan: as suggested by admission imaging follow culture data on antibiotics wean supplemental oxygen (4) Urinary tract infection: Qualifiers: Encounter type: initial encounter Indwelling urinary catheter type: indwelling urethral catheter Urinary tract infection type: catheter-associated UTI Qualified Code(s): T83.511A - Infection and inflammatory reaction due to indwelling urethral catheter, initial encounter; N39.0 - Urinary tract infection, site not specified Code(s): N39.0 - Urinary tract infection, site not specified Status: Acute Assessment and Plan: admission UA suggestive follow urine culture results - negative to date on antibiotics (5) Hypertension: Code(s): I10 - Essential (primary) hypertension Status: Chronic Assessment and Plan: reasonable control follow trend of hemodynamics (6) Type 2 diabetes mellitus: Code(s): E11.9 - Type 2 diabetes mellitus without complications Status: Chronic Assessment and Plan: follow accu-cheks glycemic control per hospitalists Will continue to follow. Subjective Date/time seen: 08/20/23 14:16 Interval history: Follow-up for end stage renal disease on hemodialysis. Tolerated dialysis treatment yesterday without any issues or problems; mentation seems to be doing better in general; respiratory/breathing seems about the same if not better (weaned to nasal cannula). Exam Narrative: General: WD/WN male in NAD Heart: normal S1 and S2; no rub Lungs: coarse breath sounds Abdomen: soft, nontender, nondistended, positive bowel sounds Extremities: no cyanosis or clubbing; no edema Skin: warm and intact Objective Data Vital Signs Vital Signs: Vital Signs Temp Pulse Resp BP Pulse Ox O2 Del Method O2 Flow Rate 08/20/23 14:00 99.2 F 87 23 H 139/63 98 08/20/23 14:15 100.7 F H 08/20/23 12:00 91 08/20/23 12:00 97.8 F 87 26 H 146/70 H 95 08/20/23 10:00 84 08/20/23 08:00 88 08/20/23 08:00 95 Nasal Cannula 3 08/20/23 07:10 85 20 08/20/23 07:00 83 18 08/20/23 07:00 83 18 92 Nasal Cannula 2 08/20/23 07:13 97.6 F 87 16 155/83 H 100 08/20/23 04:00 97.1 F L 78 16 144/57 H 100 08/20/23 04:00 99 Nasal Cannula 2 08/20/23 04:00 76 08/20/23 02:32 87 20 08/20/23 02:25 82 20 95 Nasal Cannula 3 08/20/23 02:20 86 20 08/20/23 02:00 76 08/20/23 00:00 82 08/19/23 23:46 91 Nasal Cannula 2 08/19/23 23:29 98.3 F 84 18 144/55 H 96 08/19/23 20:00 88 20 95 Room Air 08/19/23 20:18 88 20 08/19/23 21:56 94 08/19/23 20:00 93 08/19/23 20:00 92 Nasal Cannula 1.5 08/19/23 20:00 97.7 F 88 18 136/80 91 08/19/23 20:06 90 18 08/19/23 19:09 97.2 F L 72 18 150/67 H 94 08/19/23 18:42 84 22 H 98 High Flow Nasal Cannula 3 Intake/Output Intake/Output: Intake & Output 08/17/23 08/18/23 08/19/23 08/20/23 23:59 23:59 23
[2023-08-20] MEDS: ACETAMINOPHEN 325 MG TABLET 650 MG PO (14:43)
[2023-08-20 16:27] LABS: Glucose Point of Care 190 mg/dl (65-105)
--- NOTE | 2023-08-20 19:38 | PC.NURSE ---
Addendum entered by Fatuma Diamond RN 08/20/23 19:39: Elissa Gomez provided care for this patient on 08/20/23 after he was transferred from IMU. I have reviewed her assessments and agree with her charting Original Note: Elissa Gomez provided care for this patient on 08/20/23 after she was transferred from IMU. I have reviewed her assessments and agree with her charting
[2023-08-20] MEDS: cefTRIAXone 2 GM/NS 100 ML 2 GM/100 ML BAG IVPB (21:40)
[2023-08-20] MEDS: MELATONIN 5 MG TABLET PO (21:46)
[2023-08-20 23:30] LABS: Glucose Point of Care 223 mg/dl (65-105)
[2023-08-21] VITALS (31 sets, daily range): BP systolic 111–153; BP diastolic 41–78; PULSE 57–86; RESP 13–20; TEMP 36.2–37; O2SAT 85–94
[2023-08-21 06:39] LABS: Hemoglobin 9.4 g/dL (14.0-18.0); Mean Corpuscular HGB Conc 31.3 g/dl (32-36); Mean Corpuscular Volume 95.8 fl (80-100); Mean Platelet Volume 9.1 fl (7.4-10.4); Platelet Count Result 216 k/mm3 (150-375); Red Blood Count 3.13 M/mm3 (4.6-6.20); Red Cell Distribution Width 13.9 % (11.5-14.5); White Blood Count 17.6 K/mm3 (4.5-10.0)
[2023-08-21 06:52] LABS: Anion Gap 13 mmol/L (8-16); Blood Urea Nitrogen 40 mg/dL (9-20); Calcium 7.5 mg/dL (8.4-10.2); Carbon Dioxide 22 mmol/L (22-30); Chloride 91 mmol/L (98-107); Estimated CRCL calculation 16 ml/min; Estimated Glomerular Filt Rate 12; Glucose 247 mg/dL (65-110); Magnesium 1.9 mg/dL (1.6-2.3); Potassium 3.5 mmol/L (3.4-5.0); Sodium 126 mmol/L (137-145)
[2023-08-21 07:44] LABS: Glucose Point of Care 225 mg/dl (65-105)
[2023-08-21 07:54] LABS: Procalcitonin 4.1 ng/mL
--- NOTE | 2023-08-21 09:07 | PM.IMPN ---
Progress Note: A&P Assessment and Plan (1) Pneumonia: Qualifiers: Laterality: bilateral Lung location: unspecified part of lung Pneumonia type: due to unspecified organism Qualified Code(s): J18.9 - Pneumonia, unspecified organism Code(s): J18.9 - Pneumonia, unspecified organism Status: Acute (2) Acute hypoxic respiratory failure: Code(s): J96.01 - Acute respiratory failure with hypoxia Status: Acute (3) ESRD on hemodialysis: Code(s): N18.6 - End stage renal disease; Z99.2 - Dependence on renal dialysis Status: Acute (4) Urinary tract infection: Qualifiers: Encounter type: initial encounter Indwelling urinary catheter type: indwelling urethral catheter Urinary tract infection type: catheter-associated UTI Qualified Code(s): T83.511A - Infection and inflammatory reaction due to indwelling urethral catheter, initial encounter; N39.0 - Urinary tract infection, site not specified Code(s): N39.0 - Urinary tract infection, site not specified Status: Acute Plan 63M, a poor historian who resides at [facility] / [facility] ESRD on HD MWF (Dr. Morrissey),?legal blindness, IDDM, left BKA, diabetic nephropathy, HTN, a fib on eliquis, BPH, hx of stroke, seizures, anxiety presented with reports of hypoxia in 60's at his dialysis appointment on 08/17, on 6L NC by the time he was admitted. # acute hypoxic respiratory failure, resolving - 2/2 to?CAP. ceftriaxone and doxycycline started on admission, his o2 saturations dropped requiring 40L 60%fio AIRVO and he was switched to meropenem doxycyline and vancomycin. on 08/20 he is on 2 L nasal cannula, taken back down to cefepime and doxycycline only. MRSA nares positive. - procal and WBC downtrending, f/u urine, blood no growth so far, and sputum cultures grows Gram-positive cocci MRSA screening positive - telemetry and cont pulse ox - no more wheezing, dc'ed nebs. he does take montelukast at home but doesn't know why - telemetry and cont pulse ox until weaned off oxygen 08/21 Leukocytosis persists and worse , now patient is on ceftriaxone and doxycycline, order procalcitonin. Due to high resistant rate to doxycycline for MRSA, add vancomycin IV again. Discontinue doxycycline that is completed for 5 days. Follow-up susceptibility of MRSA # UTI - dx on admission, however urine sample dirty. being covered otherwise, follow up on urine cultures # ESRD on HD MWF - nephrology consulted. continue regular dialysis sessions. last received 08/19 # NIDDM - accuchecks and LDISS. restart home insulin as he begins to eat more # HTN - controlled. cpm. restarted all home meds except for isosorbide mononitrate # a fib on eliquis - cont tele and eliquis. currently in SR FEN: renal diabetic diet, saline lock IV GI prophylaxis: on protonix DVT prophylaxis: eliquis Lines: pIV Code Status: Full Code. improved. transfer to med surg with tele. home when off oxygen More than 35 minutes spent on chart review, patient interaction and assessment and plan. Subjective Date/time seen: 08/21/23 09:07 Interval history: Patient was seen and examined. Patient was also hemodialysis, lethargic, had no complaints. Leukocytosis is getting worse, afebrile, patient is not on steroid, sputum culture grows Gram-positive cocci Exam Narrative: GENERAL: Lethargy in no acute distress. Well-nourished. - EYES: EOMI. Anicteric. - HENT: Moist mucous membranes. - LUNGS: Clear to auscultation bilaterally, no wheezing, rhonchi, or rales. - CARDIOVASCULAR: Regular rate and rhythm. No murmur. No JVD. - ABDOMEN: Soft, non-tender and non-distended. No palpable masses. - EXTREMITIES: No edema. Peripheral pulses 2+. Non-tender. - NEUROLOGIC: No focal neurological deficits. CN II-XII grossly intact. - PSYCHIATRIC: Awake, Alert and oriented x 3. Appropriate mood and affect. - SKIN: No rashes or lesions. Warm. - LYMPH: No cervical lymphadenopathy.
--- NOTE | 2023-08-21 09:55 | PM.PNNEP ---
Progress Note: A&P Assessment and Plan (1) End stage renal disease: Code(s): N18.6 - End stage renal disease Status: Chronic Assessment and Plan: HD today continue Thursday, Thursday, Thursday dialysis schedule follow electrolytes, clearance, and volume status (2) Acute hypoxic respiratory failure: Code(s): J96.01 - Acute respiratory failure with hypoxia Status: Acute Assessment and Plan: though to be secondary to #3 continue oxygen support nebulizer treatments as needed follow respiratory status (3) Pneumonia: Qualifiers: Laterality: bilateral Lung location: unspecified part of lung Pneumonia type: due to unspecified organism Qualified Code(s): J18.9 - Pneumonia, unspecified organism Code(s): J18.9 - Pneumonia, unspecified organism Status: Acute Assessment and Plan: as suggested by admission imaging follow culture data on antibiotics wean supplemental oxygen (4) Hypertension: Code(s): I10 - Essential (primary) hypertension Status: Chronic Assessment and Plan: reasonable control follow trend of hemodynamics (5) Type 2 diabetes mellitus: Code(s): E11.9 - Type 2 diabetes mellitus without complications Status: Chronic Assessment and Plan: follow accu-cheks glycemic control per hospitalists Will continue to follow. Subjective Date/time seen: 08/21/23 09:55 Interval history: Follow-up for end stage renal disease on hemodialysis. Tolerating hemodialysis treatment at the time of my visit (seen on HD at 9:45AM); worsening WBC noted so antibiotics adjusted for broader coverage; no apparent distress noted. Exam Narrative: General: WD/WN male in NAD Heart: normal S1 and S2; no rub Lungs: coarse breath sounds Abdomen: soft, nontender, nondistended, positive bowel sounds Extremities: no cyanosis or clubbing; no edema Skin: warm and intact Objective Data Vital Signs Vital Signs: Vital Signs Temp Pulse Resp BP Pulse Ox O2 Del Method O2 Flow Rate 08/21/23 08:00 92 Nasal Cannula 1 08/21/23 08:00 76 08/21/23 06:00 97.7 F 79 20 111/61 94 08/21/23 04:00 77 08/21/23 00:00 85 08/21/23 05:47 92 Nasal Cannula 1 08/21/23 05:46 85 L Room Air 08/20/23 20:00 78 08/21/23 04:12 94 Room Air 08/20/23 20:10 84 18 94 Nasal Cannula 2 08/20/23 22:00 97.8 F 88 16 147/67 H 95 08/20/23 23:06 93 Nasal Cannula 1 08/20/23 20:00 95 Nasal Cannula 2 08/20/23 15:43 98.7 F 08/20/23 17:52 80 08/20/23 13:00 96 Nasal Cannula 3 08/20/23 16:00 80 08/20/23 14:43 100.7 F H 08/20/23 14:38 100.7 F H 08/20/23 14:00 99.2 F 87 23 H 139/63 98 08/20/23 14:15 100.7 F H 08/20/23 12:00 91 08/20/23 12:00 97.8 F 87 26 H 146/70 H 95 Intake/Output Intake/Output: Intake & Output 08/18/23 08/19/23 08/20/23 08/21/23 23:59 23:59 23:59 23:59 Intake Total 2260 1340 1740 Output Total 40 2300 150 100 Balance 2220 -960 1590 -100 Meds/Results Medications: Active Medications Generic Name Dose Route Start Last Admin Trade Name Freq PRN Reason Stop Dose Admin Acetaminophen 650 mg 08/20/23 14:18 08/20/23 14:43 Acetaminophen 325 Mg Tablet PO 650 mg Q4H PRN Administration Fever >101 Amlodipine Besylate 10 mg 08/20/23 09:00 08/20/23 09:17 Amlodipine Besylate 5 Mg Tablet PO 10 mg DAILY MATT Administration Apixaban 2.5 mg 08/20/23 09:00 08/20/23 17:52 Apixaban 2.5 Mg Tablet PO 2.5 mg BID MATT Administration Aspirin 81 mg 08/20/23 09:00 08/20/23 09:17 Aspirin 81 Mg Chewable Tablet PO 81 mg DAILY MATT Administration Atorvastatin Calcium 20 mg 08/20/23 09:00 08/20/23 09:17 Atorvastatin 20 Mg Tablet PO 20 mg DAILY MATT Administration Carvedilol 3.125 mg 08/20/23 09:
[2023-08-21 10:00] LABS: Vancomycin Random 14.9 ug/mL (10-20)
[2023-08-21] MEDS: EPOETIN ALFA-EPBX 10,000 UNITS/ML VIAL 10000 UNITS IV PUSH (11:22)
[2023-08-21] MEDS: DOXYCYCLINE 100 MG/NS 100 ML 100 MG/100 ML BAG IVPB ×2 (12:43→20:59)
[2023-08-21] MEDS: PANTOPRAZOLE 40 MG TABLET PO (12:49)
[2023-08-21] MEDS: FLUoxetine HCL 20 MG CAPSULE PO (12:49)
[2023-08-21] MEDS: CHOLECALCIFEROL 1,000 UNITS TABLET 2000 UNITS PO (12:49)
[2023-08-21] MEDS: ASPIRIN 81 MG CHEWABLE TABLET PO (12:49)
[2023-08-21] MEDS: PENTOXIFYLLINE 400 MG TABCR PO ×2 (12:49→16:54)
[2023-08-21] MEDS: carvediloL 3.125 MG TABLET PO ×2 (12:49→16:54)
[2023-08-21] MEDS: APIXABAN 2.5 MG TABLET PO ×2 (12:49→16:55)
[2023-08-21] MEDS: TAMSULOSIN HCL 0.4 MG CAPSULE PO (12:50)
[2023-08-21] MEDS: polyethylene glycoL 3350 17 GM POWD.PACK PO (12:50)
[2023-08-21] MEDS: amLODIPine BESYLATE 5 MG TABLET 10 MG PO (12:50)
[2023-08-21] MEDS: levETIRAcetam 500 MG TABLET PO (12:50)
[2023-08-21] MEDS: MONTELUKAST SODIUM 10 MG TABLET PO (12:50)
[2023-08-21] MEDS: ATORVASTATIN 20 MG TABLET PO (12:51)
[2023-08-21 16:32] LABS: Glucose Point of Care 143 mg/dl (65-105)
[2023-08-21] MEDS: VANCOMYCIN 1,000 MG/NS 250 ML 1,000 MG/250 ML BAG 250 MG IVPB (16:55)
[2023-08-21] MEDS: cefTRIAXone 2 GM/NS 100 ML 2 GM/100 ML BAG IVPB (16:56)
[2023-08-21 20:41] LABS: Glucose Point of Care 141 mg/dl (65-105)
[2023-08-21] MEDS: MELATONIN 5 MG TABLET PO (20:59)
[2023-08-22] VITALS (11 sets, daily range): BP systolic 132–140; BP diastolic 47–63; PULSE 47–80; RESP 14–16; TEMP 36.2–37.2; O2SAT 92–97
[2023-08-22 07:26] LABS: Glucose Point of Care 129 mg/dl (65-105)
[2023-08-22] MEDS: amLODIPine BESYLATE 5 MG TABLET 10 MG PO (08:51)
[2023-08-22] MEDS: ASPIRIN 81 MG CHEWABLE TABLET PO (08:51)
[2023-08-22] MEDS: FLUoxetine HCL 20 MG CAPSULE PO (08:51)
[2023-08-22] MEDS: CHOLECALCIFEROL 1,000 UNITS TABLET 2000 UNITS PO (08:51)
[2023-08-22] MEDS: ATORVASTATIN 20 MG TABLET PO (08:51)
[2023-08-22] MEDS: PENTOXIFYLLINE 400 MG TABCR PO ×3 (08:51→16:38)
[2023-08-22] MEDS: PANTOPRAZOLE 40 MG TABLET PO (08:51)
[2023-08-22] MEDS: APIXABAN 2.5 MG TABLET PO ×2 (08:51→16:39)
[2023-08-22] MEDS: TAMSULOSIN HCL 0.4 MG CAPSULE PO (08:52)
--- NOTE | 2023-08-22 09:46 | PM.IMPN ---
Progress Note: A&P Assessment and Plan (1) Pneumonia: Qualifiers: Laterality: bilateral Lung location: unspecified part of lung Pneumonia type: due to unspecified organism Qualified Code(s): J18.9 - Pneumonia, unspecified organism Code(s): J18.9 - Pneumonia, unspecified organism Status: Acute (2) Acute hypoxic respiratory failure: Code(s): J96.01 - Acute respiratory failure with hypoxia Status: Acute (3) ESRD on hemodialysis: Code(s): N18.6 - End stage renal disease; Z99.2 - Dependence on renal dialysis Status: Acute (4) Urinary tract infection: Qualifiers: Encounter type: initial encounter Indwelling urinary catheter type: indwelling urethral catheter Urinary tract infection type: catheter-associated UTI Qualified Code(s): T83.511A - Infection and inflammatory reaction due to indwelling urethral catheter, initial encounter; N39.0 - Urinary tract infection, site not specified Code(s): N39.0 - Urinary tract infection, site not specified Status: Acute Plan 63M, a poor historian who resides at [facility] / [facility] ESRD on HD MWF (Dr. Morrissey),?legal blindness, IDDM, left BKA, diabetic nephropathy, HTN, a fib on eliquis, BPH, hx of stroke, seizures, anxiety presented with reports of hypoxia in 60's at his dialysis appointment on 08/17, on 6L NC by the time he was admitted. # acute hypoxic respiratory failure, resolving - 2/2 to?CAP. ceftriaxone and doxycycline started on admission, his o2 saturations dropped requiring 40L 60%fio AIRVO and he was switched to meropenem doxycyline and vancomycin. on 08/20 he is on 2 L nasal cannula, taken back down to cefepime and doxycycline only. MRSA nares positive. - procal and WBC downtrending, f/u urine, blood no growth so far, and sputum cultures grows Gram-positive cocci MRSA screening positive - telemetry and cont pulse ox - no more wheezing, dc'ed nebs. he does take montelukast at home but doesn't know why - telemetry and cont pulse ox until weaned off oxygen 08/21 Leukocytosis persists and worse , now patient is on ceftriaxone and doxycycline, order procalcitonin. Due to high resistant rate to doxycycline for MRSA, add vancomycin IV again. Discontinue doxycycline that is completed for 5 days. Follow-up susceptibility of MRSA 08/22 still has cough, wbc trends down # UTI - dx on admission, however urine sample dirty. being covered otherwise, follow up on urine cultures # ESRD on HD MWF - nephrology consulted. continue regular dialysis sessions. last received 08/19 # NIDDM - accuchecks and LDISS. restart home insulin as he begins to eat more # HTN - controlled. cpm. restarted all home meds except for isosorbide mononitrate # a fib on eliquis - cont tele and eliquis. currently in SR FEN: renal diabetic diet, saline lock IV GI prophylaxis: on protonix DVT prophylaxis: eliquis Lines: pIV Code Status: Full Code. improved. transfer to med surg with tele. home when off oxygen patient can be discharged in 1- 2 days Subjective Date/time seen: 08/22/23 09:46 Interval history: Patient was seen and examined. Patient lethargic, had no complaints. , afebrile. pt was noticed to have cough. labs reviewed. wbc 14k trends donw Exam Narrative: GENERAL: Lethargy in no acute distress. Well-nourished. - EYES: Blindness bilaterally anicteric. - HENT: Moist mucous membranes. - LUNGS: Coarse breath sounds bilateral base, no wheezing, rhonchi, or rales. - CARDIOVASCULAR: Regular rate and rhythm. No murmur. No JVD. - ABDOMEN: Soft, non-tender and non-distended. No palpable masses. - EXTREMITIES: No edema. Left below-knee amputation, non-tender. - NEUROLOGIC: No focal neurological deficits. CN II-XII grossly intact. - PSYCHIATRIC: Awake, Alert and oriented x 3. Appropriate mood and affect. - SKIN: No rashes or lesions. Warm. - LYMPH: No cervical lymphadenopathy. Objective Data Vital Si
[2023-08-22 11:29] LABS: Glucose Point of Care 156 mg/dl (65-105)
--- NOTE | 2023-08-22 12:19 | PM.PNNEP ---
Progress Note: A&P Assessment and Plan (1) End stage renal disease: Code(s): N18.6 - End stage renal disease Status: Chronic Assessment and Plan: HD yesterday continue Thursday, Thursday, Thursday dialysis schedule follow electrolytes, clearance, and volume status (2) Acute hypoxic respiratory failure: Code(s): J96.01 - Acute respiratory failure with hypoxia Status: Acute Assessment and Plan: though to be secondary to #3 continue oxygen support nebulizer treatments as needed follow respiratory status (3) Pneumonia: Qualifiers: Laterality: bilateral Lung location: unspecified part of lung Pneumonia type: due to unspecified organism Qualified Code(s): J18.9 - Pneumonia, unspecified organism Code(s): J18.9 - Pneumonia, unspecified organism Status: Acute Assessment and Plan: as suggested by admission imaging follow culture data on antibiotics wean supplemental oxygen (4) Hypertension: Code(s): I10 - Essential (primary) hypertension Status: Chronic Assessment and Plan: reasonable control follow trend of hemodynamics (5) Type 2 diabetes mellitus: Code(s): E11.9 - Type 2 diabetes mellitus without complications Status: Chronic Assessment and Plan: follow accu-cheks glycemic control per hospitalists Will continue to follow. Subjective Date/time seen: 08/22/23 12:19 Interval history: Follow-up for end stage renal disease on hemodialysis. Tolerated dialysis treatment yesterday without any issues or problems; WBC appears to be trending down; respiratory status/breathing seems stable if not improving; no events overnight or earlier today. Exam Narrative: General: WD/WN male in NAD Heart: normal S1 and S2; no rub Lungs: coarse breath sounds Abdomen: soft, nontender, nondistended, positive bowel sounds Extremities: no cyanosis or clubbing; no edema Skin: no rash Objective Data Vital Signs Vital Signs: Vital Signs Temp Pulse Resp BP Pulse Ox O2 Del Method O2 Flow Rate 08/22/23 12:00 69 08/22/23 08:50 92 Nasal Cannula 1 08/22/23 08:50 58 L 08/22/23 08:53 47 L 08/22/23 05:54 97.4 F L 72 14 140/63 95 08/22/23 04:00 68 08/22/23 00:00 67 08/21/23 20:00 69 08/21/23 20:00 90 Nasal Cannula 1 08/21/23 21:04 97.2 F L 57 L 13 126/41 L 90 Intake/Output Intake/Output: Intake & Output 08/19/23 08/20/23 08/21/23 08/22/23 23:59 23:59 23:59 23:59 Intake Total 1340 8685 336 6092 Output Total 2300 150 2700 50 Balance -960 1590 -2100 1410 Meds/Results Medications: Active Medications Generic Name Dose Route Start Last Admin Trade Name Freq PRN Reason Stop Dose Admin Acetaminophen 650 mg 08/20/23 14:18 08/20/23 14:43 Acetaminophen 325 Mg Tablet PO 650 mg Q4H PRN Administration Fever >101 Amlodipine Besylate 10 mg 08/20/23 09:00 08/22/23 08:51 Amlodipine Besylate 5 Mg Tablet PO 10 mg DAILY MATT Administration Apixaban 2.5 mg 08/20/23 09:00 08/22/23 16:39 Apixaban 2.5 Mg Tablet PO 2.5 mg BID MATT Administration Aspirin 81 mg 08/20/23 09:00 08/22/23 08:51 Aspirin 81 Mg Chewable Tablet PO 81 mg DAILY MATT Administration Atorvastatin Calcium 20 mg 08/20/23 09:00 08/22/23 08:51 Atorvastatin 20 Mg Tablet PO 20 mg DAILY MATT Administration Carvedilol 3.125 mg 08/20/23 09:00 08/22/23 16:39 Carvedilol 3.125 Mg Tablet PO 3.125 mg BID MATT Administration Dextrose 12.5 gm 08/17/23 20:29 Dextrose 50% 25 Gm/50 Ml Syringe IV PUSH PRN PRN Hypoglycemia Protocol Fluoxetine HCl 20 mg 08/20/23 09:00 08/22/23 08:51 Fluoxetine Hcl 20 Mg Capsule PO 20 mg DAILY MATT Administration Glucagon 1 mg 08/17/23 20:29 Glucagon For Inj 1 Mg Vial IM PRN PRN Hypoglycemia Protocol Glucose 15
[2023-08-22 12:38] LABS: Basophils Absolute Auto 0.1 K/mm3 (0.0-0.1); Basophils Percent Auto 0.4 % (0.2-1.2); Eosinophils Absolute Auto 0.5 K/mm3 (0-0.3); Eosinophils Percent Auto 3.5 % (0-4.4); Hematocrit 31.3 % (42.0-52.0); Hemoglobin 9.6 g/dL (14.0-18.0); Immature Granulocyte Percent A 4.2 % (0-0.5); Lymphocytes Absolute Auto 1.16 K/mm3 (0.9-3.2); Lymphocytes Percent Auto 8.1 % (18.3-44.2); Mean Corpuscular HGB Conc 30.7 g/dl (32-36); Mean Corpuscular Hemoglobin 29.6 pg (26-34); Mean Corpuscular Volume 96.6 fl (80-100); Monocytes Absolute Auto 0.7 K/mm3 (0.1-0.6); Monocytes Percent Auto 4.8 % (2.6-8.5); Neutrophils Absolute Auto 11.3 K/mm3 (1.3-6.7); Platelet Count Result 281 k/mm3 (150-375); Red Blood Count 3.24 M/mm3 (4.6-6.20); Red Cell Distribution Width 14.1 % (11.5-14.5); White Blood Count 14.3 K/mm3 (4.5-10.0)
[2023-08-22 12:49] LABS: Estimated CRCL calculation 16 ml/min; Estimated Glomerular Filt Rate 14
[2023-08-22 13:00] LABS: Alanine Aminotransferase 39 U/L (6-50); Albumin Level 2.8 g/dL (3.5-5.1); Alkaline Phosphatase 77 U/L (38-126); Anion Gap 14 mmol/L (8-16); Aspartate Amino Transferase 38 U/L (17-59); Bilirubin,Total 0.5 mg/dL (0.2-1.3); Blood Urea Nitrogen 27 mg/dL (9-20); Calcium 8.5 mg/dL (8.4-10.2); Carbon Dioxide 22 mmol/L (22-30); Chloride 99 mmol/L (98-107); Estimated CRCL calculation 16 ml/min; Estimated Glomerular Filt Rate 14; Glucose 154 mg/dL (65-110); Potassium 3.6 mmol/L (3.4-5.0); Sodium 135 mmol/L (137-145)
[2023-08-22 13:07] LABS: Procalcitonin 3.5 ng/mL
[2023-08-22 16:22] LABS: Glucose Point of Care 171 mg/dl (65-105)
[2023-08-22] MEDS: cefTRIAXone 2 GM/NS 100 ML 2 GM/100 ML BAG IVPB (16:34)
[2023-08-22] MEDS: carvediloL 3.125 MG TABLET PO (16:39)
[2023-08-22 20:44] LABS: Glucose Point of Care 182 mg/dl (65-105)
[2023-08-22] MEDS: MELATONIN 5 MG TABLET PO (21:10)
[2023-08-23] VITALS (11 sets, daily range): BP systolic 119–146; BP diastolic 64–74; PULSE 62–74; RESP 12–18; TEMP 36.4–36.8; O2SAT 91–94
[2023-08-23 07:17] LABS: Glucose Point of Care 203 mg/dl (65-105)
[2023-08-23] MEDS: amLODIPine BESYLATE 5 MG TABLET 10 MG PO (08:51)
[2023-08-23] MEDS: ASPIRIN 81 MG CHEWABLE TABLET PO (08:51)
[2023-08-23] MEDS: APIXABAN 2.5 MG TABLET PO ×2 (08:51→17:14)
[2023-08-23] MEDS: INSULIN ASPART (*BKC) 100 UNITS/ML SUB-Q ×2 (08:51→17:14)
[2023-08-23] MEDS: PANTOPRAZOLE 40 MG TABLET PO (08:51)
[2023-08-23] MEDS: FLUoxetine HCL 20 MG CAPSULE PO (08:51)
[2023-08-23] MEDS: carvediloL 3.125 MG TABLET PO ×2 (08:52→17:14)
[2023-08-23] MEDS: CHOLECALCIFEROL 1,000 UNITS TABLET 2000 UNITS PO (08:55)
[2023-08-23] MEDS: PENTOXIFYLLINE 400 MG TABCR PO ×3 (08:55→17:14)
[2023-08-23] MEDS: TAMSULOSIN HCL 0.4 MG CAPSULE PO (08:55)
[2023-08-23] MEDS: ATORVASTATIN 20 MG TABLET PO (08:55)
[2023-08-23 10:31] LABS: Basophils Absolute Auto 0.1 K/mm3 (0.0-0.1); Basophils Percent Auto 0.7 % (0.2-1.2); Eosinophils Absolute Auto 0.4 K/mm3 (0-0.3); Eosinophils Percent Auto 2.8 % (0-4.4); Hematocrit 31.2 % (42.0-52.0); Hemoglobin 9.5 g/dL (14.0-18.0); Immature Granulocyte Absolute 0.52 K/mm3 (0.00-0.031); Immature Granulocyte Percent A 4.1 % (0-0.5); Lymphocytes Absolute Auto 1.26 K/mm3 (0.9-3.2); Lymphocytes Percent Auto 9.9 % (18.3-44.2); Mean Corpuscular HGB Conc 30.4 g/dl (32-36); Mean Corpuscular Hemoglobin 29.8 pg (26-34); Mean Corpuscular Volume 97.8 fl (80-100); Mean Platelet Volume 9.1 fl (7.4-10.4); Monocytes Absolute Auto 0.6 K/mm3 (0.1-0.6); Neutrophils Absolute Auto 9.9 K/mm3 (1.3-6.7); Neutrophils Percent Auto 77.5 % (45.5-73.1); Platelet Count Result 283 k/mm3 (150-375); Red Blood Count 3.19 M/mm3 (4.6-6.20); White Blood Count 12.7 K/mm3 (4.5-10.0)
[2023-08-23 10:42] LABS: Anion Gap 14 mmol/L (8-16); Blood Urea Nitrogen 36 mg/dL (9-20); Calcium 7.8 mg/dL (8.4-10.2); Carbon Dioxide 21 mmol/L (22-30); Chloride 96 mmol/L (98-107); Estimated CRCL calculation 13 ml/min; Estimated Glomerular Filt Rate 11; Glucose 178 mg/dL (65-110); Potassium 3.5 mmol/L (3.4-5.0); Sodium 131 mmol/L (137-145)
[2023-08-23 11:02] LABS: Procalcitonin 2.3 ng/mL
--- NOTE | 2023-08-23 11:12 | PM.PNNEP ---
Progress Note: A&P Assessment and Plan (1) End stage renal disease: Code(s): N18.6 - End stage renal disease Status: Chronic Assessment and Plan: HD tomorrow continue Thursday, Thursday, Thursday dialysis schedule follow electrolytes, clearance, and volume status (2) Acute hypoxic respiratory failure: Code(s): J96.01 - Acute respiratory failure with hypoxia Status: Acute Assessment and Plan: though to be secondary to #3 continue oxygen support nebulizer treatments as needed follow respiratory status (3) Pneumonia: Qualifiers: Laterality: bilateral Lung location: unspecified part of lung Pneumonia type: due to unspecified organism Qualified Code(s): J18.9 - Pneumonia, unspecified organism Code(s): J18.9 - Pneumonia, unspecified organism Status: Acute Assessment and Plan: as suggested by admission imaging follow culture data on antibiotics wean supplemental oxygen (4) Hypertension: Code(s): I10 - Essential (primary) hypertension Status: Chronic Assessment and Plan: reasonable control follow trend of hemodynamics (5) Type 2 diabetes mellitus: Code(s): E11.9 - Type 2 diabetes mellitus without complications Status: Chronic Assessment and Plan: follow accu-cheks glycemic control per hospitalists Will continue to follow. Subjective Date/time seen: 08/23/23 11:12 Interval history: Follow-up for end stage renal disease on hemodialysis. Overall, feeling better today; asking me about discharge; breathing/respiratory seems stable if not better; no other acute complaints voiced; no events overnight or earlier today. Exam Narrative: General: WD/WN male in NAD Heart: normal S1 and S2; no rub Lungs: coarse breath sounds Abdomen: soft, nontender, nondistended, positive bowel sounds Extremities: no cyanosis or clubbing; no edema Skin: no nodules Objective Data Vital Signs Vital Signs: Vital Signs Temp Pulse Resp BP Pulse Ox O2 Del Method O2 Flow Rate 08/23/23 11:00 97.8 F 62 12 130/64 93 08/23/23 08:50 92 Nasal Cannula 1 08/23/23 08:50 71 08/23/23 08:52 67 08/23/23 05:25 98.2 F 66 15 119/74 94 08/23/23 04:00 71 08/23/23 00:00 67 08/22/23 20:40 66 08/22/23 21:27 98.9 F 71 14 132/56 L 92 08/22/23 16:00 80 08/22/23 16:39 64 Intake/Output Intake/Output: Intake & Output 08/20/23 08/21/23 08/22/23 08/23/23 23:59 23:59 23:59 23:59 Intake Total 0494 882 7636 1590 Output Total 150 2700 250 50 Balance 1590 -2100 1450 1540 Meds/Results Medications: Active Medications Generic Name Dose Route Start Last Admin Trade Name Freq PRN Reason Stop Dose Admin Acetaminophen 650 mg 08/20/23 14:18 08/20/23 14:43 Acetaminophen 325 Mg Tablet PO 650 mg Q4H PRN Administration Fever >101 Amlodipine Besylate 10 mg 08/20/23 09:00 08/23/23 08:51 Amlodipine Besylate 5 Mg Tablet PO 10 mg DAILY MATT Administration Apixaban 2.5 mg 08/20/23 09:00 08/23/23 08:51 Apixaban 2.5 Mg Tablet PO 2.5 mg BID MATT Administration Aspirin 81 mg 08/20/23 09:00 08/23/23 08:51 Aspirin 81 Mg Chewable Tablet PO 81 mg DAILY MATT Administration Atorvastatin Calcium 20 mg 08/20/23 09:00 08/23/23 08:55 Atorvastatin 20 Mg Tablet PO 20 mg DAILY MATT Administration Carvedilol 3.125 mg 08/20/23 09:00 08/23/23 08:52 Carvedilol 3.125 Mg Tablet PO 3.125 mg BID MATT Administration Dextrose 12.5 gm 08/17/23 20:29 Dextrose 50% 25 Gm/50 Ml Syringe IV PUSH PRN PRN Hypoglycemia Protocol Fluoxetine HCl 20 mg 08/20/23 09:00 08/23/23 08:51 Fluoxetine Hcl 20 Mg Capsule PO 20 mg DAILY MATT Administration Glucagon 1 mg 08/17/23 20:29 Glucagon For Inj 1 Mg Vial IM PRN PRN Hypoglycemia Protocol Glucose 15
[2023-08-23 11:41] LABS: Glucose Point of Care 150 mg/dl (65-105)
[2023-08-23] MEDS: SODIUM CHLORIDE 0.9% IV 1,000 ML 75 ML IV CONT (14:21)
[2023-08-23 16:40] LABS: Glucose Point of Care 218 mg/dl (65-105)
--- NOTE | 2023-08-23 16:42 | PM.IMPN ---
Progress Note: A&P Assessment and Plan (1) Pneumonia: Qualifiers: Laterality: bilateral Lung location: unspecified part of lung Pneumonia type: due to unspecified organism Qualified Code(s): J18.9 - Pneumonia, unspecified organism Code(s): J18.9 - Pneumonia, unspecified organism Status: Acute (2) Acute hypoxic respiratory failure: Code(s): J96.01 - Acute respiratory failure with hypoxia Status: Acute (3) ESRD on hemodialysis: Code(s): N18.6 - End stage renal disease; Z99.2 - Dependence on renal dialysis Status: Acute (4) Urinary tract infection: Qualifiers: Encounter type: initial encounter Indwelling urinary catheter type: indwelling urethral catheter Urinary tract infection type: catheter-associated UTI Qualified Code(s): T83.511A - Infection and inflammatory reaction due to indwelling urethral catheter, initial encounter; N39.0 - Urinary tract infection, site not specified Code(s): N39.0 - Urinary tract infection, site not specified Status: Acute (5) Leukocytosis: Code(s): D72.829 - Elevated white blood cell count, unspecified Status: Acute Plan 63M, a poor historian who resides at [facility] w/ [facility] ESRD on HD MWF (Dr. Morrissey),?legal blindness, IDDM, left BKA, diabetic nephropathy, HTN, a fib on eliquis, BPH, hx of stroke, seizures, anxiety presented with reports of hypoxia in 60's at his dialysis appointment on 08/17, on 6L NC by the time he was admitted. # acute hypoxic respiratory failure, resolving - 2/2 to?CAP. ceftriaxone and doxycycline started on admission, his o2 saturations dropped requiring 40L 60%fio AIRVO and he was switched to meropenem doxycyline and vancomycin. on 08/20 he is on 2 L nasal cannula, taken back down to cefepime and doxycycline only. MRSA nares positive. - procal and WBC downtrending, f/u urine, blood no growth so far, and sputum cultures grows Gram-positive cocci MRSA screening positive - telemetry and cont pulse ox - no more wheezing, dc'ed nebs. he does take montelukast at home but doesn't know why - telemetry and cont pulse ox until weaned off oxygen 08/21 Leukocytosis persists and worse , now patient is on ceftriaxone and doxycycline, order procalcitonin. Due to high resistant rate to doxycycline for MRSA, add vancomycin IV again. Discontinue doxycycline that is completed for 5 days. Follow-up susceptibility of MRSA 08/22 still has cough, wbc trends down 08/23 ... Patient continues to improve. WBC count now down to 12.7 # UTI - dx on admission, however urine sample dirty. being covered otherwise, follow up on urine cultures which are negative # ESRD on HD MWF - nephrology consulted. continue regular dialysis sessions. last received 08/19 - patient with the worsening renal functions and increasing creatinine at 5.4 - mild IV hydration given with normal saline at 75 cc/hour for 500 cc - patient to go for hemodialysis in am # NIDDM - accuchecks and LDISS. restart home insulin as he begins to eat more # HTN - controlled. cpm. restarted all home meds except for isosorbide mononitrate # a fib on eliquis - cont tele and eliquis. currently in SR FEN: renal diabetic diet, saline lock IV GI prophylaxis: on protonix DVT prophylaxis: eliquis Lines: pIV Code Status: Full Code. improved. transfer to med surg with tele. home when off oxygen ? Patient seen and examined at bedside during my morning rounds ? Collaborated with patient's nurse at the bedside in detail and addressed all concerns ? Labs, electrolytes, radiology, investigations and test results reviewed ? Consult/Nursing/Ancilliary notes on the chart reviewed and appreciated ? Spoke with patient at the bedside and answered all the questions that he had Repeat labs in a.m. Electrolyte replacement as per protocol. Patient will be monitored very closely on the floor. Further recommendations as per the hospital course. TITO coello
[2023-08-23] MEDS: cefTRIAXone 2 GM/NS 100 ML 2 GM/100 ML BAG IVPB (17:15)
[2023-08-23] MEDS: MELATONIN 5 MG TABLET PO (20:58)
[2023-08-23 21:33] LABS: Glucose Point of Care 185 mg/dl (65-105)
[2023-08-24] VITALS (20 sets, daily range): BP systolic 134–153; BP diastolic 57–73; PULSE 62–76; RESP 16–18; TEMP 36.6–38; O2SAT 92–96
[2023-08-24 06:51] LABS: Basophils Absolute Auto 0.1 K/mm3 (0.0-0.1); Basophils Percent Auto 0.6 % (0.2-1.2); Eosinophils Absolute Auto 0.4 K/mm3 (0-0.3); Eosinophils Percent Auto 3.2 % (0-4.4); Hematocrit 30.1 % (42.0-52.0); Hemoglobin 9.5 g/dL (14.0-18.0); Immature Granulocyte Absolute 0.52 K/mm3 (0.00-0.031); Immature Granulocyte Percent A 4.1 % (0-0.5); Lymphocytes Absolute Auto 1.18 K/mm3 (0.9-3.2); Lymphocytes Percent Auto 9.3 % (18.3-44.2); Mean Corpuscular HGB Conc 31.6 g/dl (32-36); Mean Corpuscular Hemoglobin 30.2 pg (26-34); Mean Corpuscular Volume 95.6 fl (80-100); Mean Platelet Volume 8.9 fl (7.4-10.4); Monocytes Absolute Auto 0.6 K/mm3 (0.1-0.6); Monocytes Percent Auto 4.5 % (2.6-8.5); Neutrophils Percent Auto 78.3 % (45.5-73.1); Platelet Count Result 346 k/mm3 (150-375); Red Blood Count 3.15 M/mm3 (4.6-6.20); Red Cell Distribution Width 13.9 % (11.5-14.5); White Blood Count 12.7 K/mm3 (4.5-10.0)
[2023-08-24 07:12] LABS: Alanine Aminotransferase 26 U/L (6-50); Albumin Level 2.7 g/dL (3.5-5.1); Alkaline Phosphatase 71 U/L (38-126); Anion Gap 13 mmol/L (8-16); Aspartate Amino Transferase 28 U/L (17-59); Bilirubin,Total 0.4 mg/dL (0.2-1.3); Blood Urea Nitrogen 42 mg/dL (9-20); Calcium 7.7 mg/dL (8.4-10.2); Carbon Dioxide 23 mmol/L (22-30); Chloride 95 mmol/L (98-107); Estimated CRCL calculation 11 ml/min; Estimated Glomerular Filt Rate 9; Glucose 204 mg/dL (65-110); Potassium 3.5 mmol/L (3.4-5.0); Sodium 131 mmol/L (137-145)
[2023-08-24 07:50] LABS: Glucose Point of Care 200 mg/dl (65-105)
[2023-08-24 08:28] LABS: Vancomycin Trough 17.9 ug/mL (10.0-20.0)
[2023-08-24] MEDS: APIXABAN 2.5 MG TABLET PO ×2 (09:04→17:16)
[2023-08-24] MEDS: PENTOXIFYLLINE 400 MG TABCR PO ×2 (09:04→17:16)
[2023-08-24] MEDS: FLUoxetine HCL 20 MG CAPSULE PO (09:04)
[2023-08-24] MEDS: ATORVASTATIN 20 MG TABLET PO (09:04)
[2023-08-24] MEDS: amLODIPine BESYLATE 5 MG TABLET 10 MG PO (09:04)
[2023-08-24] MEDS: CHOLECALCIFEROL 1,000 UNITS TABLET 2000 UNITS PO (09:04)
[2023-08-24] MEDS: ASPIRIN 81 MG CHEWABLE TABLET PO (09:04)
[2023-08-24] MEDS: TAMSULOSIN HCL 0.4 MG CAPSULE PO (09:04)
[2023-08-24] MEDS: PANTOPRAZOLE 40 MG TABLET PO (09:05)
[2023-08-24] MEDS: carvediloL 3.125 MG TABLET PO ×2 (09:05→17:16)
[2023-08-24 11:34] LABS: Glucose Point of Care 207 mg/dl (65-105)
--- NOTE | 2023-08-24 12:53 | PCNWS ---
Weekly nutritional screen. Patient is tolerating current diet with adequate intake, 75-100% on renal, diabetic consitent carb diet. No weight loss reported. No nutritional needs at this time.
[2023-08-24] MEDS: EPOETIN ALFA-EPBX 10,000 UNITS/ML VIAL 10000 UNITS IV PUSH (13:26)
[2023-08-24] MEDS: SODIUM CHLORIDE 0.9% IV 1,000 ML 999 ML IV CONT (13:27)
--- NOTE | 2023-08-24 13:43 | PM.PNNEP ---
Progress Note: A&P Assessment and Plan (1) End stage renal disease: Code(s): N18.6 - End stage renal disease Status: Chronic Assessment and Plan: HD today continue Thursday, Thursday, Thursday dialysis schedule follow electrolytes, clearance, and volume status (2) Acute hypoxic respiratory failure: Code(s): J96.01 - Acute respiratory failure with hypoxia Status: Acute Assessment and Plan: though to be secondary to #3 continue oxygen support nebulizer treatments as needed follow respiratory status (3) Pneumonia: Qualifiers: Laterality: bilateral Lung location: unspecified part of lung Pneumonia type: due to unspecified organism Qualified Code(s): J18.9 - Pneumonia, unspecified organism Code(s): J18.9 - Pneumonia, unspecified organism Status: Acute Assessment and Plan: as suggested by admission imaging follow culture data on antibiotics weaned off supplemental oxygen (4) Hypertension: Code(s): I10 - Essential (primary) hypertension Status: Chronic Assessment and Plan: reasonable control follow trend of hemodynamics (5) Type 2 diabetes mellitus: Code(s): E11.9 - Type 2 diabetes mellitus without complications Status: Chronic Assessment and Plan: follow accu-cheks glycemic control per hospitalists Will continue to follow. Subjective Date/time seen: 08/24/23 13:43 Interval history: Follow-up for end stage renal disease on hemodialysis. Tolerating dialysis treatment at the time of my visit (seen on HD at 1:30PM); was a bit drowsy earlier today but seems more awake currently; breathing/respiratory status continues to improve. Exam Narrative: General: WD/WN male in NAD Heart: normal S1 and S2; no rub Lungs: clear anteriorly Abdomen: soft, nontender, nondistended, positive bowel sounds Extremities: no cyanosis or clubbing; no edema Skin: warm and dry Objective Data Vital Signs Vital Signs: Vital Signs Temp Pulse Resp BP Pulse Ox 08/24/23 13:30 69 141/64 H 08/24/23 13:15 63 134/65 08/24/23 12:56 63 143/68 H 08/24/23 12:50 97.9 F 64 16 140/67 08/24/23 09:05 68 08/24/23 06:00 97.8 F 70 18 140/70 92 08/24/23 00:00 62 12/03/23 22:00 97.6 F 70 18 146/71 H 91 08/23/23 20:00 73 08/23/23 16:00 74 08/23/23 17:14 72 08/23/23 14:00 97.8 F 62 12 130/64 93 Intake/Output Intake/Output: Intake & Output 08/21/23 08/22/23 08/23/23 08/24/23 23:59 23:59 23:59 23:59 Intake Total 600 1700 2170 980 Output Total 2700 250 150 Balance -2100 1450 2020 980 Meds/Results Medications: Active Medications Generic Name Dose Route Start Last Admin Trade Name Freq PRN Reason Stop Dose Admin Acetaminophen 650 mg 08/20/23 14:18 08/20/23 14:43 Acetaminophen 325 Mg Tablet PO 650 mg Q4H PRN Administration Fever >101 Amlodipine Besylate 10 mg 08/20/23 09:00 08/24/23 09:04 Amlodipine Besylate 5 Mg Tablet PO 10 mg DAILY MATT Administration Apixaban 2.5 mg 08/20/23 09:00 08/24/23 09:04 Apixaban 2.5 Mg Tablet PO 2.5 mg BID MATT Administration Aspirin 81 mg 08/20/23 09:00 08/24/23 09:04 Aspirin 81 Mg Chewable Tablet PO 81 mg DAILY MATT Administration Atorvastatin Calcium 20 mg 08/20/23 09:00 08/24/23 09:04 Atorvastatin 20 Mg Tablet PO 20 mg DAILY MATT Administration Carvedilol 3.125 mg 08/20/23 09:00 08/24/23 09:05 Carvedilol 3.125 Mg Tablet PO 3.125 mg BID MATT Administration Dextrose 12.5 gm 08/17/23 20:29 Dextrose 50% 25 Gm/50 Ml Syringe IV PUSH PRN PRN Hypoglycemia Protocol Epoetin Lewis-epbx 10,000 units 08/24/23 20:00 08/24/23 13:26 Epoetin Lewis-Epbx 10,000 Units/Ml Vial IV PUSH 08/24/23 20:01 10,000 units ONCE ONE Administration Fluoxetine HCl 20 mg 08/20/23 09:00 08/24/23 09:04 Fluoxetine
[2023-08-24 16:40] LABS: Glucose Point of Care 153 mg/dl (65-105)
[2023-08-24] MEDS: cefTRIAXone 2 GM/NS 100 ML 2 GM/100 ML BAG IVPB (17:12)
[2023-08-24] MEDS: VANCOMYCIN 750 MG/NS 250 ML 750 MG/250 ML BAG 250 MG IVPB (18:08)
--- NOTE | 2023-08-24 18:12 | PM.IMPN ---
Progress Note: A&P Assessment and Plan (1) Pneumonia: Qualifiers: Laterality: bilateral Lung location: unspecified part of lung Pneumonia type: due to unspecified organism Qualified Code(s): J18.9 - Pneumonia, unspecified organism Code(s): J18.9 - Pneumonia, unspecified organism Status: Acute (2) Acute hypoxic respiratory failure: Code(s): J96.01 - Acute respiratory failure with hypoxia Status: Acute (3) ESRD on hemodialysis: Code(s): N18.6 - End stage renal disease; Z99.2 - Dependence on renal dialysis Status: Acute (4) Urinary tract infection: Qualifiers: Encounter type: initial encounter Indwelling urinary catheter type: indwelling urethral catheter Urinary tract infection type: catheter-associated UTI Qualified Code(s): T83.511A - Infection and inflammatory reaction due to indwelling urethral catheter, initial encounter; N39.0 - Urinary tract infection, site not specified Code(s): N39.0 - Urinary tract infection, site not specified Status: Acute (5) Leukocytosis: Code(s): D72.829 - Elevated white blood cell count, unspecified Status: Acute Plan 63M, a poor historian who resides at [facility] w/ [facility] ESRD on HD MWF (Dr. Morrissey),?legal blindness, IDDM, left BKA, diabetic nephropathy, HTN, a fib on eliquis, BPH, hx of stroke, seizures, anxiety presented with reports of hypoxia in 60's at his dialysis appointment on 08/17, on 6L NC by the time he was admitted. # acute hypoxic respiratory failure, resolving - 2/2 to?CAP. ceftriaxone and doxycycline started on admission, his o2 saturations dropped requiring 40L 60%fio AIRVO and he was switched to meropenem doxycyline and vancomycin. on 08/20 he is on 2 L nasal cannula, taken back down to cefepime and doxycycline only. MRSA nares positive. - procal and WBC downtrending, f/u urine, blood no growth so far, and sputum cultures grows Gram-positive cocci MRSA screening positive - telemetry and cont pulse ox - no more wheezing, dc'ed nebs. he does take montelukast at home but doesn't know why - telemetry and cont pulse ox until weaned off oxygen 08/21 Leukocytosis persists and worse , now patient is on ceftriaxone and doxycycline, order procalcitonin. Due to high resistant rate to doxycycline for MRSA, add vancomycin IV again. Discontinue doxycycline that is completed for 5 days. Follow-up susceptibility of MRSA 08/22 still has cough, wbc trends down 08/23 ... Patient continues to improve. WBC count now down to 12.7 # UTI - dx on admission, however urine sample dirty. being covered otherwise, follow up on urine cultures which are negative # ESRD on HD MWF - nephrology consulted. continue regular dialysis sessions. last received 08/19 - Patient with the worsening renal functions and increasing creatinine at 6.6 - Patient undergoing hemodialysis today - DC planning back to SNF after improvement in renal functions and mentation # NIDDM - accuchecks and LDISS. restart home insulin as he begins to eat more # HTN - controlled. cpm. restarted all home meds except for isosorbide mononitrate # a fib on eliquis - cont tele and eliquis. currently in SR FEN: renal diabetic diet, saline lock IV GI prophylaxis: on protonix DVT prophylaxis: eliquis Lines: pIV Code Status: Full Code. improved. transfer to med surg with tele. home when off oxygen ? Patient seen and examined at bedside during my morning rounds ? Collaborated with patient's nurse at the bedside in detail and addressed all concerns ? Labs, electrolytes, radiology, investigations and test results reviewed ? Consult/Nursing/Ancilliary notes on the chart reviewed and appreciated ? Spoke with patient at the bedside and answered all the questions that he had Repeat labs in a.m. Electrolyte replacement as per protocol. Patient will be monitored very closely on the floor. Further recommendations as per the hospital course.
--- NOTE | 2023-08-24 18:17 | PC.NURSE ---
Received report from teaching music lessons that pt should D/C after dialysis and two antibiotics. MD agreed, care coordination agreed, pharmacy agreed, but no D/C order/info present. Left message with .
[2023-08-24 21:36] LABS: Glucose Point of Care 181 mg/dl (65-105)
[2023-08-24] MEDS: MELATONIN 5 MG TABLET PO (21:36)
[2023-08-25 05:30] VITALS: BP 132/71; PULSE 67; RESP 18; TEMP 37.1; O2SAT 94
[2023-08-25 06:36] LABS: Basophils Absolute Auto 0.1 K/mm3 (0.0-0.1); Basophils Percent Auto 1.1 % (0.2-1.2); Eosinophils Absolute Auto 0.3 K/mm3 (0-0.3); Eosinophils Percent Auto 2.5 % (0-4.4); Hematocrit 30.1 % (42.0-52.0); Hemoglobin 9.2 g/dL (14.0-18.0); Immature Granulocyte Absolute 0.62 K/mm3 (0.00-0.031); Lymphocytes Absolute Auto 1.32 K/mm3 (0.9-3.2); Lymphocytes Percent Auto 10.7 % (18.3-44.2); Mean Corpuscular HGB Conc 30.6 g/dl (32-36); Mean Platelet Volume 9.1 fl (7.4-10.4); Monocytes Absolute Auto 0.6 K/mm3 (0.1-0.6); Monocytes Percent Auto 4.7 % (2.6-8.5); Neutrophils Absolute Auto 9.3 K/mm3 (1.3-6.7); Platelet Count Result 355 k/mm3 (150-375); Red Blood Count 3.07 M/mm3 (4.6-6.20); Red Cell Distribution Width 13.9 % (11.5-14.5); White Blood Count 12.3 K/mm3 (4.5-10.0)
[2023-08-25 07:10] LABS: Alanine Aminotransferase 23 U/L (6-50); Albumin Level 2.7 g/dL (3.5-5.1); Alkaline Phosphatase 64 U/L (38-126); Anion Gap 11 mmol/L (8-16); Aspartate Amino Transferase 23 U/L (17-59); Bilirubin,Total 0.4 mg/dL (0.2-1.3); Blood Urea Nitrogen 24 mg/dL (9-20); Calcium 7.6 mg/dL (8.4-10.2); Carbon Dioxide 21 mmol/L (22-30); Chloride 102 mmol/L (98-107); Estimated CRCL calculation 16 ml/min; Estimated Glomerular Filt Rate 14; Glucose 191 mg/dL (65-110); Potassium 3.7 mmol/L (3.4-5.0); Sodium 134 mmol/L (137-145)
[2023-08-25 07:28] LABS: Glucose Point of Care 200 mg/dl (65-105)
[2023-08-25] MEDS: TAMSULOSIN HCL 0.4 MG CAPSULE PO (09:46)
[2023-08-25] MEDS: amLODIPine BESYLATE 5 MG TABLET 10 MG PO (09:46)
[2023-08-25] MEDS: FLUoxetine HCL 20 MG CAPSULE PO (09:46)
[2023-08-25] MEDS: PANTOPRAZOLE 40 MG TABLET PO (09:46)
[2023-08-25] MEDS: ASPIRIN 81 MG CHEWABLE TABLET PO (09:46)
[2023-08-25] MEDS: ATORVASTATIN 20 MG TABLET PO (09:46)
[2023-08-25] MEDS: CHOLECALCIFEROL 1,000 UNITS TABLET 2000 UNITS PO (09:46)
[2023-08-25] MEDS: PENTOXIFYLLINE 400 MG TABCR PO ×2 (09:46→12:37)
[2023-08-25 09:47] VITALS: PULSE 72
[2023-08-25] MEDS: carvediloL 3.125 MG TABLET PO (09:47)
[2023-08-25] MEDS: APIXABAN 2.5 MG TABLET PO (09:47)
--- NOTE | 2023-08-25 11:06 | PM.PNNEP ---
Progress Note: A&P Assessment and Plan (1) End stage renal disease: Code(s): N18.6 - End stage renal disease Status: Chronic Assessment and Plan: HD tomorrow continue Thursday, Thursday, Thursday dialysis schedule follow electrolytes, clearance, and volume status (2) Acute hypoxic respiratory failure: Code(s): J96.01 - Acute respiratory failure with hypoxia Status: Acute Assessment and Plan: though to be secondary to #3 continue oxygen support nebulizer treatments as needed follow respiratory status (3) Pneumonia: Qualifiers: Laterality: bilateral Lung location: unspecified part of lung Pneumonia type: due to unspecified organism Qualified Code(s): J18.9 - Pneumonia, unspecified organism Code(s): J18.9 - Pneumonia, unspecified organism Status: Acute Assessment and Plan: as suggested by admission imaging follow culture data on antibiotics weaned off supplemental oxygen (4) Hypertension: Code(s): I10 - Essential (primary) hypertension Status: Chronic Assessment and Plan: reasonable control follow trend of hemodynamics (5) Type 2 diabetes mellitus: Code(s): E11.9 - Type 2 diabetes mellitus without complications Status: Chronic Assessment and Plan: follow accu-cheks glycemic control per hospitalists Will continue to follow. Subjective Date/time seen: 08/25/23 11:06 Interval history: Follow-up for end stage renal disease on hemodialysis. Tolerated dialysis treatment yesterday without any issues or problems; no apparent distress noted; breathing seems back to baseline; mentation stable; no other complaints to report. Exam Narrative: General: WD/WN male in NAD Heart: normal S1 and S2; no rub Lungs: clear anteriorly Abdomen: soft, nontender, nondistended, positive bowel sounds Extremities: no cyanosis or clubbing; no edema Skin: warm and intact Objective Data Vital Signs Vital Signs: Vital Signs Temp Pulse Resp BP Pulse Ox 08/25/23 10:43 97.1 F L 68 18 135/55 L 92 08/25/23 09:47 72 08/25/23 05:30 98.7 F 67 18 132/71 94 08/24/23 21:38 98.2 F 73 18 147/69 H 94 08/24/23 17:16 76 08/24/23 16:21 98.3 F 67 16 144/63 H 08/24/23 16:22 70 142/66 H 08/24/23 16:00 68 141/59 H 08/24/23 15:40 70 144/62 H 08/24/23 15:29 68 145/60 H Intake/Output Intake/Output: Intake & Output 08/22/23 08/23/23 08/24/23 08/25/23 23:59 23:59 23:59 23:59 Intake Total 1700 2170 1320 408 Output Total 493 366 9248 150 Balance 1450 2020 -1347 258 Meds/Results Medications: Active Medications Generic Name Dose Route Start Last Admin Trade Name Freq PRN Reason Stop Dose Admin Acetaminophen 650 mg 08/20/23 14:18 08/20/23 14:43 Acetaminophen 325 Mg Tablet PO 650 mg Q4H PRN Administration Fever >101 Amlodipine Besylate 10 mg 08/20/23 09:00 08/25/23 09:46 Amlodipine Besylate 5 Mg Tablet PO 10 mg DAILY MATT Administration Apixaban 2.5 mg 08/20/23 09:00 08/25/23 09:47 Apixaban 2.5 Mg Tablet PO 2.5 mg BID MATT Administration Aspirin 81 mg 08/20/23 09:00 08/25/23 09:46 Aspirin 81 Mg Chewable Tablet PO 81 mg DAILY MATT Administration Atorvastatin Calcium 20 mg 08/20/23 09:00 08/25/23 09:46 Atorvastatin 20 Mg Tablet PO 20 mg DAILY MATT Administration Carvedilol 3.125 mg 08/20/23 09:00 08/25/23 09:47 Carvedilol 3.125 Mg Tablet PO 3.125 mg BID MATT Administration Dextrose 12.5 gm 08/17/23 20:29 Dextrose 50% 25 Gm/50 Ml Syringe IV PUSH PRN PRN Hypoglycemia Protocol Fluoxetine HCl 20 mg 08/20/23 09:00 08/25/23 09:46 Fluoxetine Hcl 20 Mg Capsule PO 20 mg DAILY MATT Administration Glucagon 1 mg 08/17/23 20:29 Glucagon For Inj 1 Mg Vial IM PRN PRN Hypoglycemia Protocol Glucose 15 gm 08/17/23 20:29
[2023-08-25 11:33] LABS: Glucose Point of Care 180 mg/dl (65-105)
--- NOTE | 2023-08-25 12:00 | PM.DS ---
DS: Admitting Diagnosis Discharge Date 08/25/2023: Admitting Diagnosis Acute hypoxemic respiratory failure Pneumonia DS: Discharge Diagnosis Discharge Diagnosis (1) Acute hypoxic respiratory failure: Code(s): J96.01 - Acute respiratory failure with hypoxia Status: Acute (2) Pneumonia: Qualifiers: Laterality: bilateral Lung location: unspecified part of lung Pneumonia type: due to unspecified organism Qualified Code(s): J18.9 - Pneumonia, unspecified organism Code(s): J18.9 - Pneumonia, unspecified organism Status: Acute (3) Leukocytosis: Code(s): D72.829 - Elevated white blood cell count, unspecified Status: Acute (4) Urinary tract infection: Qualifiers: Encounter type: initial encounter Indwelling urinary catheter type: indwelling urethral catheter Urinary tract infection type: catheter-associated UTI Qualified Code(s): T83.511A - Infection and inflammatory reaction due to indwelling urethral catheter, initial encounter; N39.0 - Urinary tract infection, site not specified Code(s): N39.0 - Urinary tract infection, site not specified Status: Acute (5) ESRD on hemodialysis: Code(s): N18.6 - End stage renal disease; Z99.2 - Dependence on renal dialysis Status: Acute DS: Summary Hospital Course Reason for hospitalization: [facility] patient admitted with the shortness of breath and hypoxia. Workup showed pneumonia and respiratory failure Hospital Course: 63M, a poor historian who resides at [facility]/ [facility] ESRD on HD MWF (Dr. Morrissey),?legal blindness, IDDM, left BKA, diabetic nephropathy, HTN, a fib on eliquis, BPH, hx of stroke, seizures, anxiety presented with reports of hypoxia in 60's at his dialysis appointment on 08/17, on 6L NC by the time he was admitted. # acute hypoxic respiratory failure, resolving # community-acquired pneumonia - 2/2 to?CAP. ceftriaxone and doxycycline started on admission, his o2 saturations dropped requiring 40L 60%fio AIRVO and he was switched to meropenem doxycyline and vancomycin. on 08/20 he is on 2 L nasal cannula, taken back down to cefepime and doxycycline only. MRSA nares positive. - procal and WBC downtrending, f/u urine, blood no growth so far, and sputum cultures grows Gram-positive cocci MRSA screening positive - telemetry and cont pulse ox - no more wheezing, dc'ed nebs. he does take montelukast at home but doesn't know why - telemetry and cont pulse ox until weaned off oxygen 08/21 Leukocytosis persists? and worse , now patient is on ceftriaxone and doxycycline, order procalcitonin.? Due to high resistant rate to doxycycline for MRSA, add vancomycin IV again.? Discontinue doxycycline that is completed for 5 days.? Follow-up susceptibility of MRSA 08/22 still has cough,? wbc trends down? 08/23 ...? Patient continues to improve.? WBC count now down to 12.3 Patient finished 7 days of aggressive course with multiple IV antibiotics. No more antibiotics upon discharge # UTI - dx on admission, however urine sample dirty. being covered otherwise, follow up on urine cultures? which are negative # ESRD on HD MWF - nephrology consulted. continue regular dialysis sessions.? last received 08/19 - Patient with the worsening renal functions with creatinine at 6.6 yesterday which came down to 4.3 after hemodialysis -? DC planning back to SNF?today after patient has improvement in his renal functions and mentation # NIDDM - accuchecks and LDISS. restart home insulin as he begins to eat more # HTN - controlled. cpm. restarted all home meds except for isosorbide mononitrate # a fib on eliquis - cont tele and eliquis. currently in SR FEN: renal diabetic diet, saline lock IV Code Status: Full Code. Detailed discharge directions delivered to the patient by myself and my nursing staff, who erbalizes understanding and is very happy and satisfied with the plan. Patient has been advised to c
[2023-08-25 13:43] VITALS: BP 135/55; PULSE 68; RESP 18; TEMP 36.2; O2SAT 92
== END 2023-08-25 15:05 | DRG 177 ==
LOC: ANHED 18:35 → ANH3MEDSUR 21:35 → ANHIMU 08-18 17:59 → ANH3MEDSUR 08-20 12:53
PROVIDERS: General Practice; Hospitalist; Internal Medicine Nephrology; Student in an Organized Health Care Education/Training Program; Admitting Provider Internal Medicine; Emergency Provider Physician Assistant; PCP Hospitalist; Visit Provider Family Medicine
DX: J15.212 Pneumonia due to Methicillin resistant Staphylococcus aureus (principal); J96.01 Acute respiratory failure with hypoxia; N18.6 End stage renal disease; N39.0 Urinary tract infection, site not specified; I12.0 Hypertensive chronic kidney disease with stage 5 chronic kidney disease or end stage renal disease; T83.511A Infection and inflammatory reaction due to indwelling urethral catheter, initial encounter; E87.1 Hypo-osmolality and hyponatremia; E11.22 Type 2 diabetes mellitus with diabetic chronic kidney disease; E11.42 Type 2 diabetes mellitus with diabetic polyneuropathy; F41.9 Anxiety disorder, unspecified; H54.7 Unspecified visual loss; I48.91 Unspecified atrial fibrillation; N40.0 Benign prostatic hyperplasia without lower urinary tract symptoms; R56.9 Unspecified convulsions; Z99.2 Dependence on renal dialysis; Z79.4 Long term (current) use of insulin; Z79.01 Long term (current) use of anticoagulants; Z79.82 Long term (current) use of aspirin; Z20.822 Contact with and (suspected) exposure to COVID-19; Z86.73 Personal history of transient ischemic attack (TIA), and cerebral infarction without residual deficits
CPT/HCPCS: 36415; 36600; 70450; 71045; 80048; 80053; 80202; 81001; 82375; 82565; 82805; 82948; 83050; 83605; 83735; 83880; 84100; 84145; 85025; 85027; 86706; 87040; 87070; 87081; 87086; 87088; 87205; 87340; 87449; 87637; 87899; 93005; 94640; 96365; 99285; A9270; G0257; J0456; J0692; J0696; J1644; J1815; J2185; J3370; J7030; Q5105

== ENCOUNTER 2024-04-01 11:40 | Inpatient (IN) | payer MEDICARE, MEDICAID, SELFPAY ==
--- NOTE | ~2024-04-01 | CT_ITS ---
Clinical Indication: Abdominal pain, elevated troponin, pneumonia CT Scan of the Chest, Abdomen, and Pelvis without Contrast: Technique: Contiguous sections were acquired throughout the chest, abdomen, and pelvis without IV con trast administration. Dose reduction technique was used on this scan by utilizing automated exposure control and iterative reconstruction technique. The dose-length product (DLP) was 1238.13 mGy-cm. Findings: There is no evidence of any significant mediastinal, hilar or axillary lymphadenopathy. Extensive cor onary artery calcifications are present. Minimal pericardial fluid present. There is no evidence of pleural or pericardial effusion. There is mild bibasilar atelectatic change. Suggestion of mild chronic bibasilar interstitial change or mild bibasilar aspiration. The liver, spleen, pancreas, adrenals and kidneys are within normal limits. Cholelithiasis noted. The re are atherosclerotic calcifications of the aorta. No lymphadenopathy. There is diffuse large bowel wall thickening and mild diffuse pericolonic inflammatory stranding/infi ltration. No bowel obstruction. No abscess or free air. Probable diffuse urinary bladder wall thickening despite decompression with Fournier catheter in place. No pelvic mass evident. No ascites. Impression: Pancolitis, most likely infectious/inflammatory in nature. Suspected cystitis. Correlate with urinalysis. Cholelithiasis. Probable chronic bibasilar interstitial change or possibly sequela of aspiration. Minimal pericardial fluid. Reviewed, dictated and finalized at [facility]. Impression: Pancolitis, most likely infectious/inflammatory in nature. Suspected cystitis. Correlate with urinalysis. Cholelithiasis. Probable chronic bibasilar interstitial change or possibly sequela of aspiratio n. Minimal pericardial fluid.
--- NOTE | ~2024-04-01 | CT_ITS ---
CT head without contrast Indication: Headache, weakness COMPARISON: 08/17/2023 Technique: Serial scans were obtained through the brain without the administration of contrast. Dose reduction technique was used on this scan by utilizing automated exposure control and iterative recon struction technique. The dose-length product (DLP) was 681.00 mGy-cm. Findings: There is no evidence of intracranial hemorrhage, mass lesion, or acute infarct. The ventri cles and subarachnoid spaces are dilated, consistent with mild atrophy. Chronic lacunar left basal ga nglia infarcts noted. Low attenuation regions are seen within the periventricular white matter bilate rally, likely representing changes from chronic microvascular ischemic disease. There is no evidence of edema, mass effect or midline shift. There is pansinusitis. Impression: No intracranial hemorrhage, mass, or acute infarct. Chronic lacunar infarcts in the left basal ganglia. Atrophy and chronic white matter changes, as above. Pansinusitis. Reviewed, dictated and finalized at location . Impression: No intracranial hemorrhage, mass, or acute infarct. Chronic lacunar infarcts in the left basal ganglia. Atrophy and chronic white matter changes, as above. Pansinusitis.
--- NOTE | ~2024-04-01 | XR_ITS ---
Clinical Indication: Weakness PA and lateral views of the chest: Comparison: 08/20/2023 Findings: Possible retrocardiac airspace disease. Right lung clear. Cardiomediastinal silhouette is within normal limits. Bones and soft tissues are unremarkable. Impression: Possible left lower lobe pneumonia. Reviewed, dictated and finalized at [facility]. Impression: Possible left lower lobe pneumonia.
--- NOTE | 2024-04-01 11:57 | ECG_ITS ---
Test Date: 2024-04-01 13:45:11 Measurements Intervals [place] Rate: 66 P: 49 IN: 143 QRS: 25 QRSD: 93 T: 80 QT: 373 QTc: 393 Interpretive Statements SINUS RHYTHM CANNOT R/O SEPTAL INFARCT, AGE INDETERMINATE POSSIBLE LATERAL MYOCARDIAL INFARCTION , OF INDETERMINATE AGE ABNORMAL ECG Electronically Signed On 04-01-2024 14:03:23 CDT by Capo Reynolds D.O.
[2024-04-01 12:00] VITALS: BP 123/68; PULSE 76; RESP 18; TEMP 37.2; O2SAT 93
[2024-04-01 12:15] LABS: Basophils Percent Auto 0.3 % (0.2-1.2); Eosinophils Absolute Auto 0.1 K/mm3 (0-0.3); Hematocrit 31.3 % (42.0-52.0); Hemoglobin 10.3 g/dL (14.0-18.0); Immature Granulocyte Absolute 0.05 K/mm3 (0.00-0.031); Immature Granulocyte Percent A 0.4 % (0-0.5); Lymphocytes Absolute Auto 0.44 K/mm3 (0.9-3.2); Lymphocytes Percent Auto 3.7 % (18.3-44.2); Mean Corpuscular HGB Conc 32.9 g/dl (32-36); Mean Corpuscular Hemoglobin 31.8 pg (26-34); Mean Corpuscular Volume 96.6 fl (80-100); Mean Platelet Volume 9.1 fl (7.4-10.4); Monocytes Absolute Auto 0.5 K/mm3 (0.1-0.6); Monocytes Percent Auto 3.8 % (2.6-8.5); Neutrophils Absolute Auto 10.7 K/mm3 (1.3-6.7); Neutrophils Percent Auto 90.8 % (45.5-73.1); Platelet Count Result 156 k/mm3 (150-375); Red Blood Count 3.24 M/mm3 (4.6-6.20); White Blood Count 11.7 K/mm3 (4.5-10.0)
[2024-04-01 12:25] LABS: Alanine Aminotransferase 15 U/L (6-50); Albumin Level 3.6 g/dL (3.5-5.1); Alkaline Phosphatase 108 U/L (38-126); Anion Gap 13 mmol/L (4-12); Aspartate Amino Transferase 28 U/L (17-59); Bilirubin,Total 0.6 mg/dL (0.2-1.3); Blood Urea Nitrogen 47 mg/dL (9-20); Carbon Dioxide 32 mmol/L (22-30); Chloride 88 mmol/L (98-107); Estimated Glomerular Filt Rate 7; Glucose 131 mg/dL (65-110); Potassium 3.6 mmol/L (3.4-5.0); Sodium 133 mmol/L (137-145)
--- NOTE | 2024-04-01 13:00 | ED.WEAKNESS ---
HPI - Weakness General Chief complaint: Weakness Stated complaint: weakness Time Seen by Provider: 04/01/24 12:03 History of Present Illness HPI Narrative: Patient is a 63-year-old male with a history of ESRD on dialysis Thursday, hypertension, hyperlipidemia, diabetes presenting with weakness. Patient is a rather poor historian. He states that he has been feeling generally weak for several days and has also been shaking which is new for him. He went to dialysis today and complained that he felt weak so they called EMS. He did not receive his dialysis treatment. He otherwise complains of diffuse chest pain as well as a headache for several days. Denies focal numbness or weakness, shortness of breath, abdominal pain, vomiting, diarrhea. Denies further complaints at this time. Related Data Home Medications Medication Instructions Recorded Confirmed Tums 750 mg PO HS 08/17/23 04/03/24 amlodipine 10 mg tablet 5 mg PO DAILY 08/17/23 04/03/24 apixaban 2.5 mg tablet (Eliquis) 2.5 mg PO BID 08/17/23 04/03/24 aspirin 81 mg PO DAILY 08/17/23 04/03/24 atorvastatin 20 mg tablet 20 mg PO DAILY 08/17/23 04/03/24 carvedilol 3.125 mg tablet 3.125 mg PO BID 08/17/23 04/03/24 cholecalciferol (vitamin D3) 2,000 units PO DAILY 08/17/23 04/03/24 insulin glargine 100 unit/mL (3 15 unit subcut HS 08/17/23 04/03/24 mL) subcutaneous pen (Lantus Solostar U-100 Insulin) isosorbide mononitrate 60 mg 60 mg PO BID 08/17/23 04/03/24 tablet,extended release 24 hr levetiracetam 500 mg tablet 500 mg PO BID 08/17/23 04/03/24 melatonin 5 mg PO HS 08/17/23 04/03/24 montelukast 10 mg tablet 10 mg PO DAILY 08/17/23 04/03/24 pantoprazole 40 mg tablet,delayed 40 mg PO DAILY 08/17/23 04/03/24 release pen needle, diabetic, safety 30 08/17/23 04/03/24 gauge x 5/16 (Easy Touch Safety Pen Needle) pentoxifylline 400 mg 400 mg PO TID 08/17/23 04/03/24 tablet,extended release tamsulosin 0.4 mg capsule 0.4 mg PO DAILY 08/17/23 04/03/24 acetaminophen 325 mg tablet 650 mg PO Q6H PRN Pain (Scale 04/03/24 04/03/24 (Tylenol) Score 1-3) escitalopram oxalate 10 mg tablet 10 mg PO DAILY 04/03/24 04/03/24 (Lexapro) Allergies Allergy/AdvReac Type Severity Reaction Status Date / Time bacitracin Allergy Unknown Unknown Verified 08/17/23 22:42 gramicidin D Allergy Unknown Unknown Verified 08/17/23 22:42 neomycin Allergy Unknown Unknown Verified 08/18/23 08:08 polymyxin B Allergy Unknown Unknown Verified 08/17/23 22:42 Dairy Allergy Unknown Unknown Uncoded 08/17/23 22:42 Review of Systems Review of Systems: All systems reviewed & are unremarkable except as noted in HPI and below PMFSH Past Medical History Medical History (Updated 04/03/24 @ 17:45 by Jennifer Coelho MD) ESRD on hemodialysis Hypertension Social History Social History Smoking status: Never smoker Alcohol intake: former Substance use: former Substance use type: crack/cocaine Last use: 2012 Spiritual care concerns: No Exam Narrative: GENERAL: Chronically ill-appearing male lying in bed in no acute distress, pleasant and cooperative HEAD: Normocephalic, atraumatic. EYES: PERRLA and EOMI. ENT: Mucous membranes moist. NECK: Supple. CHEST: Clear to auscultation. No respiratory distress. HEART: Regular rate and rhythm ABDOMEN: Soft, nontender, nondistended : catherine in place EXTREMITIES: +L BKA; +AV fistula LUE SKIN: Warm, dry, no rash. NEURO: Alert and oriented x3. PSYCH: Normal mood and affect. Course Vital Signs Vital signs: Vital Signs Temperature 99.0 F 04/01/24 12:00 Pulse Rate 76 04/01/24 12:00 Respiratory Rate 18 04/01/24 12:00 Blood Pressure 123/68 04/01/24 12:00 Pulse Oximetry 93 04/01/24 12:00 Oxygen Delivery Room Air 04/01/24 12:00 Temperature 98.4 F 04/04/24 13:54 Pulse Rate 72 04/04/24 13:54 Respiratory Rate 14 04/04/24
[2024-04-01 13:45] LABS: INR 1.4; Prothrombin Time 17.4 Seconds (11.1-14.7)
[2024-04-01 13:46] LABS: Partial Thromboplastin Time 41.6 Seconds (22.3-36.8)
[2024-04-01 13:53] LABS: Troponin I 0.049 ng/mL (0.000-0.034)
[2024-04-01 14:23] LABS: Influenza A QL RT-PCR Negative (Negative); Influenza B QL RT-PCR Negative (Negative); RSV RNA, RT-PCR Negative (Negative); SARS-CoV-2 RNA PCR Negative (Negative)
[2024-04-01 16:33] VITALS: BP 125/59; PULSE 93; RESP 20; O2SAT 100
--- NOTE | 2024-04-01 16:50 | ECG_ITS ---
Test Date: 2024-04-01 16:58:00 Measurements Intervals [place] Rate: 91 P: 0 DE: 0 QRS: 66 QRSD: 156 T: 21 QT: 411 QTc: 506 Interpretive Statements ATRIAL FIBRILLATION RIGHT BUNDLE BRANCH BLOCK BORDERLINE ST-T WAVE ABNORMALITY- ANTEROLATERAL LEADS BASELINE ARTIFACT- I, II, III, AVR, AVL, AVF, V1-V2 ABNORMAL ECG Compared to ECG 04/01/2024 13:45:11 ATRIAL FIBRILLATION NO PRESENT Right bundle-branch block now present ST-T WAVE ABNORMALITY NOW PRESENT Electronically Signed On 04-01-2024 19:26:39 CDT by Capo Reynolds D.O.
[2024-04-01 17:55] LABS: Troponin I 0.048 ng/mL (0.000-0.034)
--- NOTE | 2024-04-01 18:24 | PC.NURSE ---
Urinary catheter intact on arrival, catherine bag changed to see patient output and if patent/draining. EDP gave VO to replace w/ new catherine catheter.
--- NOTE | 2024-04-01 19:32 | PM.IMHP ---
H&P: HPI History of Present Illness Date/Time: 04/01/24 19:32 Chief Complaint: weakness Narrative: This is a 63-year-old male with past medical history significant for end-stage renal disease on hemodialysis patient presents to the emergency room with complaints of generalized weakness has not had his last treatment of hemodialysis due to generalized weakness, feeling overall unwell, of the time of my visit patient could not really contribute much to history taking was obtunded, preliminary workup was significant for chest x-ray with left lower lobe pneumonia Clinical Indication: Weakness PA and lateral views of the chest: Comparison: 08/20/2023 Findings: Possible retrocardiac airspace disease. Right lung clear. Cardiomediastinal silhouette is within normal limits. Bones and soft tissues are unremarkable. Impression: Possible left lower lobe pneumonia. CT head without contrast Indication: Headache, weakness COMPARISON: 08/17/2023 Technique: Serial scans were obtained through the brain without the administration of contrast. Dose reduction technique was used on this scan by utilizing automated exposure control and iterative reconstruction technique. The dose-length product (DLP) was 681.00 mGy-cm. Findings: There is no evidence of intracranial hemorrhage, mass lesion, or acute infarct. The ventricles and subarachnoid spaces are dilated, consistent with mild atrophy. Chronic lacunar left basal ganglia infarcts noted. Low attenuation regions are seen within the periventricular white matter bilaterally, likely representing changes from chronic microvascular ischemic disease. There is no evidence of edema, mass effect or midline shift. There is pansinusitis. Impression: No intracranial hemorrhage, mass, or acute infarct. Chronic lacunar infarcts in the left basal ganglia. Atrophy and chronic white matter changes, as above. Pansinusitis. Review of Systems Review of Systems: ROS unobtainable: Yes unobtainable due to mental status ( obtundation/lethargy) [facility] Past Medical History Medical History (Updated 04/03/24 @ 17:45 by Jennifer Coelho MD) ESRD on hemodialysis Hypertension Social History Social History Smoking status: Never smoker Alcohol intake: former Substance use: former Substance use type: crack/cocaine Last use: 2012 Spiritual care concerns: No Meds Home Medications and Allergies Home Medications Medication Instructions Recorded Confirmed Type Tums 750 mg PO HS 08/17/23 04/03/24 History amlodipine 10 mg tablet 5 mg PO DAILY 08/17/23 04/03/24 History apixaban 2.5 mg tablet (Eliquis) 2.5 mg PO BID 08/17/23 04/03/24 History aspirin 81 mg PO DAILY 08/17/23 04/03/24 History atorvastatin 20 mg tablet 20 mg PO DAILY 08/17/23 04/03/24 History carvedilol 3.125 mg tablet 3.125 mg PO BID 08/17/23 04/03/24 History cholecalciferol (vitamin D3) 2,000 units PO DAILY 08/17/23 04/03/24 History insulin glargine 100 unit/mL (3 15 unit subcut HS 08/17/23 04/03/24 History mL) subcutaneous pen (Lantus Solostar U-100 Insulin) isosorbide mononitrate 60 mg 60 mg PO BID 08/17/23 04/03/24 History tablet,extended release 24 hr levetiracetam 500 mg tablet 500 mg PO BID 08/17/23 04/03/24 History melatonin 5 mg PO HS 08/17/23 04/03/24 History montelukast 10 mg tablet 10 mg PO DAILY 08/17/23 04/03/24 History pantoprazole 40 mg tablet,delayed 40 mg PO DAILY 08/17/23 04/03/24 History release pen needle, diabetic, safety 30 08/17/23 04/03/24 History gauge x 5/16 (Easy Touch Safety Pen Needle) pentoxifylline 400 mg 400 mg PO TID 08/17/23 04/03/24 History tablet,extended release tamsulosin 0.4 mg capsule 0.4 mg PO DAILY 08/17/23 04/03/24 History acetaminophen 325 mg tablet 650 mg PO Q6H PRN Pain (Scale 04/03/24 04/03/24 History (Tylenol) Score 1-3) escitalopram oxalate 10 mg tablet 10 mg PO DAILY
[2024-04-01 20:40] VITALS: BP 128/68; PULSE 82; RESP 14; TEMP 37.7; O2SAT 96
[2024-04-01] MEDS: SODIUM CHLORIDE 0.9% IV 500 ML 999 ML IV CONT (20:40)
[2024-04-01 21:57] VITALS: BMI 24.8
[2024-04-01 22:00] VITALS: PULSE 71
--- NOTE | 2024-04-01 22:21 | ADMGEN ---
This patient, Ja Grififth, was admitted to IMU Room 201-01. Patient/family oriented to hospital policies and general routines including ID bracelet, bed and alarms, visiting hours, pain management, procedures, bathroom and other care routines, personal items, smoking policy, room service/diet, and visiting hours. Information on how to activate the Rapid Response Team has been discussed. Patient/Family are encouraged to report perceived risks to care and to ask questions if they do not understand what they are told or what they should do. Pt arrived to the unit at 2130.
[2024-04-01 23:37] LABS: Troponin I 0.051 ng/mL (0.000-0.034)
[2024-04-01] MEDS: AZITHROMYCIN 500 MG/NS 250 ML 500 MG/250 ML BAG 250 MG IVPB (23:51)
[2024-04-02] VITALS (33 sets, daily range): BP systolic 92–150; BP diastolic 43–69; PULSE 57–80; RESP 16–24; TEMP 36.1–37; O2SAT 95–100
[2024-04-02 01:36] LABS: Toxigenic C. Diff POSITIVE (NEGATIVE)
--- NOTE | 2024-04-02 08:23 | PM.IMPN ---
Progress Note: A&P Assessment and Plan (1) Left lower lobe pneumonia: Code(s): J18.9 - Pneumonia, unspecified organism Status: Acute Assessment and Plan: Patient with complaints of weakness and low-grade temperature, presented with a white count 11.7. Chest x-ray shows a possible left lower lobe pneumonia. Will obtain CT of his chest today. Exam his lungs are clear but diminished. He is a poor historian and does not now he has had a cough or productive sputum. Patient was started on Rocephin and azithromycin---patient is from a snf. If pneumonia is confirmed full switched to cefepime. Blood cultures pending and sputum culture ordered Procalcitonin pending, lactic pending Upper respiratory viral panel was negative, MRSA pending Incentive spirometry, pep Duo Nebs q.6 (2) End stage renal disease: Code(s): N18.6 - End stage renal disease Status: Chronic Assessment and Plan: End-stage renal disease on hemodialysis Thursday. Patient missed his last dialysis as he was too weak to go. Nephrology was consulted for dialysis needs Anticipate dialysis today Renally dose medications Patient has a Fournier catheter in place which appears to be chronic from known reason is he is end-stage renal disease requiring dialysis. Will discuss with Dr. Teran if we can remove the catheter. (3) Weakness generalized: Code(s): R53.1 - Weakness Status: Acute Assessment and Plan: Generalized weakness may be related to possible infection versus missed dialysis versus chronic deconditioning PT OT consults are ordered for dispo recs. Patient is a resident of [facility]. (4) Type 2 diabetes mellitus: Code(s): E11.9 - Type 2 diabetes mellitus without complications Status: Chronic Assessment and Plan: Hemoglobin A1c pending. Patient is normally on Lantus 15 units at night. Low-dose sliding scale ordered Hypoglycemia protocol ordered A.c. HS Accu-Cheks Lantus was resumed but 12 units nightly. (5) C. difficile diarrhea: Code(s): A04.72 - Enterocolitis due to Clostridium difficile, not specified as recurrent Status: Acute Assessment and Plan: Patient with diarrhea on admission and was C diff positive Patient was placed on isolation for C diff Started on Dificid for a total treatment of 10 days Patient with right lower quadrant pain to palpation and guarding. Will obtain CT his abdomen and pelvis to rule out appendix involvement. Pain likely from C diff colitis. Plan Feeding: Renal dialysis diet Analgesia: Tylenol Thromboembolic prophylaxis: On Eliquis Ulcer prophylaxis: Protonix Glycemic control: Low-dose SSI Bowel regimen: Not applicable as patient has C diff Lines: PIV Antibiotics: Rocephin and azithromycin Disposition: Patient presented via EMS from hemodialysis unit with concerns for weakness. Patient is a resident of [facility]. He is being admitted for missed dialysis, weakness, with possible pneumonia and new C diff infection. He is being treated with IV antibiotics and oral Dificid. PT OT consult have been ordered for dispo recs. Nephrology is consulted for dialysis needs. Advance Care Plan I have confirmed that the patient's Advanced Care Plan is present, code status is documented, or surrogate decision maker is listed in patient medical record.: Yes Medication Reconciliation I have utilized all available resources to obtain, update and review the patients current medications (includes all prescriptions, OTC, herbals, cannabis, and nutritional supplements).: Yes Subjective Date/time seen: 04/02/24 08:23 Interval history: This is a 63-year-old male with a past medical history significant for end-stage renal disease hemodialysis Thursday, legally blind, diabetes, left BKA, diabetic neuropathy, hypertension, AFib on Eliquis, BPH, history of
[2024-04-02 08:55] LABS: Basophils Percent Auto 0.2 % (0.2-1.2); Eosinophils Absolute Auto 0.2 K/mm3 (0-0.3); Eosinophils Percent Auto 1.3 % (0-4.4); Hematocrit 27.7 % (42.0-52.0); Hemoglobin 9.2 g/dL (14.0-18.0); Immature Granulocyte Absolute 0.07 K/mm3 (0.00-0.031); Immature Granulocyte Percent A 0.6 % (0-0.5); Lymphocytes Absolute Auto 0.89 K/mm3 (0.9-3.2); Lymphocytes Percent Auto 7.1 % (18.3-44.2); Mean Corpuscular HGB Conc 33.2 g/dl (32-36); Mean Corpuscular Hemoglobin 32.4 pg (26-34); Mean Corpuscular Volume 97.5 fl (80-100); Mean Platelet Volume 9.7 fl (7.4-10.4); Monocytes Absolute Auto 0.6 K/mm3 (0.1-0.6); Monocytes Percent Auto 4.8 % (2.6-8.5); Neutrophils Absolute Auto 10.7 K/mm3 (1.3-6.7); Platelet Count Result 144 k/mm3 (150-375); Red Blood Count 2.84 M/mm3 (4.6-6.20); White Blood Count 12.5 K/mm3 (4.5-10.0)
[2024-04-02 09:08] LABS: Alanine Aminotransferase 15 U/L (6-50); Albumin Level 3.1 g/dL (3.5-5.1); Alkaline Phosphatase 100 U/L (38-126); Anion Gap 15 mmol/L (4-12); Aspartate Amino Transferase 26 U/L (17-59); Bilirubin,Total 0.5 mg/dL (0.2-1.3); Blood Urea Nitrogen 57 mg/dL (9-20); Calcium 7.8 mg/dL (8.4-10.2); Carbon Dioxide 26 mmol/L (22-30); Chloride 92 mmol/L (98-107); Estimated CRCL calculation 8 ml/min; Estimated Glomerular Filt Rate 5; Glucose 91 mg/dL (65-110); Sodium 133 mmol/L (137-145)
[2024-04-02] MEDS: FIDAXOMICIN 200 MG TABLET PO ×2 (09:29→20:53)
[2024-04-02] MEDS: ATORVASTATIN 20 MG TABLET PO (09:29)
[2024-04-02] MEDS: ASPIRIN 81 MG ENTERIC TABLET PO (09:30)
[2024-04-02] MEDS: APIXABAN 2.5 MG TABLET PO ×2 (09:30→20:53)
[2024-04-02] MEDS: PENTOXIFYLLINE 400 MG TABCR PO ×2 (09:30→17:22)
[2024-04-02] MEDS: FLUoxetine HCL 20 MG CAPSULE PO (09:30)
[2024-04-02] MEDS: TAMSULOSIN HCL 0.4 MG CAPSULE PO (09:30)
[2024-04-02] MEDS: MONTELUKAST SODIUM 10 MG TABLET PO (09:30)
[2024-04-02] MEDS: PANTOPRAZOLE 40 MG TABLET PO (09:30)
[2024-04-02] MEDS: cefTRIAXone 2 GM/NS 100 ML 2 GM/100 ML BAG IVPB (09:30)
[2024-04-02 09:35] LABS: Procalcitonin 1.9 ng/mL
[2024-04-02 09:48] LABS: Hepatitis B Surface Antigen Negative (Negative)
[2024-04-02 10:06] LABS: Hepatitis B Surface Anti Res Positive
[2024-04-02 10:16] LABS: Hemoglobin A1C 6.7 % (<5.7)
[2024-04-02 10:57] LABS: Lactic Acid Reflex 0.8 mmol/L (0.7-2.0)
--- NOTE | 2024-04-02 11:54 | PC.NURSE ---
Pt. brought to dialysis room 1100.
[2024-04-02] MEDS: EPOETIN ALFA-EPBX 10,000 UNITS/ML VIAL 10000 UNITS IV PUSH (14:10)
--- NOTE | 2024-04-02 15:09 | PC.NURSE ---
Pt has returned from dialysis and CT scan.
[2024-04-02] MEDS: IPRATROPIUM 0.5 MG/ALBUTEROL SULFATE 2.5 MG AMPUL.NEB 3 ML INHALATION ×3 (15:15→19:49)
--- NOTE | 2024-04-02 16:13 | PM.PNNEP ---
Progress Note: A&P Assessment and Plan (1) End stage renal disease: Code(s): N18.6 - End stage renal disease Status: Chronic Assessment and Plan: HD today (since missed scheduled treatment yesterday) resume Thursday, Thursday, Thursday outpatient dialysis schedule next week follow electrolytes, clearance, and volume status FULL CONSULT to follow. Subjective Date/time seen: 04/02/24 11:22 Interval history: Follow-up for end stage renal disease on hemodialysis. Tolerating dialysis treatment at the time of my visit (seen on HD at 11:12AM); no apparent distress noted currently; responds to questions but his answers are not always consistent and does not open eyes when responds; breathing/respiratory status seems stable. Exam Narrative: General: mildly ill-appearing male in NAD Heart: normal S1 and S2; no rub Lungs: clear anteriorly; coarse at bases Abdomen: soft, nontender, nondistended, positive bowel sounds Extremities: no cyanosis or clubbing; no edema; s/p left BKA Skin: warm and dry Objective Data Vital Signs Vital Signs: Vital Signs Temp Pulse Resp BP Pulse Ox O2 Del Method 04/02/24 11:15 68 105/56 L 04/02/24 11:09 69 106/56 L 04/02/24 10:54 98 F 71 18 108/66 04/02/24 08:00 97.4 F L 70 18 109/49 L 98 04/02/24 07:58 95 Room Air 04/02/24 05:54 57 L 04/02/24 05:13 97.5 F L 66 24 H 110/52 L 96 04/02/24 04:00 61 04/02/24 03:29 Room Air 04/02/24 02:00 70 04/02/24 00:00 76 04/01/24 22:00 71 04/02/24 00:05 97.9 F 80 20 110/48 L 98 04/01/24 20:40 99.8 F H 82 14 128/68 96 04/01/24 16:33 93 20 125/59 L 100 Intake/Output Intake/Output: Intake & Output 03/30/24 03/31/24 04/01/24 04/02/24 23:59 23:59 23:59 23:59 Intake Total 550 250 Output Total 600 Balance 550 -350 Meds/Results Medications: Active Medications Generic Name Dose Route Start Last Admin Trade Name Freq PRN Reason Stop Dose Admin Acetaminophen 325 mg 04/02/24 08:54 Acetaminophen 325 Mg Tablet PO Q6H PRN Mild Pain (1-3) or Fever Albuterol/Ipratropium 3 ml 04/02/24 08:00 04/02/24 15:15 Ipratropium 0.5 Mg/Albuterol Sulfate 2.5 Mg Ampul.Neb 3 Ml INHALATION 3 ml Q6HRT MATT Administration Apixaban 2.5 mg 04/02/24 09:00 04/02/24 09:30 Apixaban 2.5 Mg Tablet PO 2.5 mg Q12HR MATT Administration Aspirin 81 mg 04/02/24 09:00 04/02/24 09:30 Aspirin 81 Mg Enteric Tablet PO 81 mg QAM MATT Administration Atorvastatin Calcium 20 mg 04/02/24 09:00 04/02/24 09:29 Atorvastatin 20 Mg Tablet PO 20 mg DAILY MATT Administration Dextrose 12.5 gm 04/02/24 08:35 Dextrose 50% 25 Gm/50 Ml Syringe IV PUSH PRN PRN Hypoglycemia Protocol Fidaxomicin 200 mg 04/02/24 09:00 04/02/24 09:29 Fidaxomicin 200 Mg Tablet PO 04/11/24 23:59 200 mg Q12HR MATT Administration Fluoxetine HCl 20 mg 04/02/24 09:00 04/02/24 09:30 Fluoxetine Hcl 20 Mg Capsule PO 20 mg DAILY MATT Administration Glucagon 1 mg 04/02/24 08:35 Glucagon For Inj 1 Mg Vial IM PRN PRN Hypoglycemia Protocol Glucose 15 gm 04/02/24 08:35 Glucose Oral Gel 15 Gm Of Glucse In 37.5 Gm Tube PO PRN PRN Hypoglycemia Protocol Azithromycin 500 mg in 250 mls @ 250 mls/hr 04/02/24 21:00 Zithromax IVPB 04/05/24 20:59 Q24H MATT Ceftriaxone Sodium 2 gm in 100 mls @ 200 mls/hr 04/02/24 09:00 04/02/24 09:30 Rocephin 2 Gm/Ns 100 Ml IVPB 200 mls/hr Q24H MATT Administration Dextrose 1,000 mls @ 100 mls/hr 04/02/24 08:35 Dextrose 5% 1,000 Ml IVPB PRN PRN Hypoglycemia Protocol Albumin Human 50 mls @ 999 mls/hr 04/02/24 08:41 Albutein IVPB 05/02/24 08:40 Q10M PRN HYPOTENSION Metronidazole 500 mg in 100 mls @ 100 mls/hr 04/02/24 16:00 Flagyl 500 Mg/Iso Soln 100 Ml IVPB
[2024-04-02 17:06] LABS: Glucose Point of Care 88 mg/dl (65-105)
[2024-04-02] MEDS: metroNIDAZOLE 500 MG/ISO 100ML 500 MG/100 ML BAG 100 MG IVPB (17:22)
[2024-04-02 18:56] LABS: MRSA (PCR) DETECTED (NOT DETECTE)
[2024-04-02] MEDS: VANCOMYCIN 1,750 MG/NS 500 ML 1,750 MG/500 ML BAG 250 MG IVPB (20:46)
[2024-04-02 20:56] LABS: Glucose Point of Care 110 mg/dl (65-105)
[2024-04-02] MEDS: INSULIN GLARGINE (*BKC) 100 UNITS/ML 12 UNITS SUB-Q (21:04)
--- NOTE | 2024-04-02 22:10 | PC.NURSE ---
This patient, Ja Griffith, was transferred to room 243 on 04/02/24 at 2204. Personal belongings sent with patient. Report given to Mihai Chowdhury RN. Appropriate documentation sent with patient.
--- NOTE | 2024-04-02 22:13 | PC.NURSE ---
Pt's brother, Dayton Griffith notified of the Pt's transfer and updated with the new room number information.
--- NOTE | 2024-04-02 22:16 | ADMGEN ---
This patient, Ja Griffith, was admitted to Medical Room 243-. Patient/family oriented to hospital policies and general routines including ID bracelet, bed and alarms, visiting hours, pain management, procedures, bathroom and other care routines, personal items, smoking policy, room service/diet, and visiting hours. Information on how to activate the Rapid Response Team has been discussed. Patient/Family are encouraged to report perceived risks to care and to ask questions if they do not understand what they are told or what they should do.
--- NOTE | 2024-04-02 22:48 | PC.NURSE ---
03/23/24 @ 2206 Pt transferrd from IMU to 2nd Med unit into room 243.
[2024-04-02] MEDS: CEFEPIME 1 GM/NS 50 ML 1 GM/50 ML BAG IVPB (23:17)
[2024-04-03] VITALS (8 sets, daily range): BP systolic 118–128; BP diastolic 52–58; PULSE 60–79; RESP 18–20; TEMP 36.3–36.9; O2SAT 98–100
[2024-04-03] MEDS: metroNIDAZOLE 500 MG/ISO 100ML 500 MG/100 ML BAG 100 MG IVPB ×2 (00:15→09:56)
[2024-04-03] MEDS: IPRATROPIUM 0.5 MG/ALBUTEROL SULFATE 2.5 MG AMPUL.NEB 3 ML INHALATION ×2 (01:38→08:11)
[2024-04-03 04:58] LABS: Estimated CRCL calculation 12 ml/min; Estimated Glomerular Filt Rate 8
--- NOTE | 2024-04-03 07:00 | P.PNIM_ITS ---
Progress Note: A&P Assessment and Plan (1) C. difficile diarrhea: Code(s): A04.72 - Enterocolitis due to Clostridium difficile, not specified as recurrent Status: Acute Assessment and Plan: Patient with diarrhea on admission and was C diff positive * Patient was placed on isolation for C diff * Started on Dificid for a total treatment of 10 days * CT showed pancolitis, cystitis, cholelithiasis. (2) Left lower lobe pneumonia: Code(s): J18.9 - Pneumonia, unspecified organism Status: Acute Assessment and Plan: Patient with complaints of weakness and low-grade temperature, presented with a white count 11.7. * Chest x-ray shows a possible left lower lobe pneumonia. Will obtain CT of his chest today. Exam his lungs are clear but diminished. He is a poor historian and does not now he has had a cough or productive sputum. * On Cefepime, vancomycin for HAP given [facility]. Flagyl was added for possible aspiration pneumonia. Speech did see him and had no concerns for aspiration. CT chest showed chronic bibasilar interstitial change, no consol idation. His respiratory exam is benign. Given this information will d/c cefe, vanco, and flagyl. He will remain on Rocephin for U/A concerning for UTI, however I do not feel strongly for urinary tract infection. * Blood cultures with no growth and sputum culture ordered * Procalcitonin 1.9, lactic 0.8 * Upper respiratory viral panel was negative, MRSA detected. * Isolation contact * Incentive spirometry, pep * Duo Nebs q.6 (3) Abnormal finding on urinalysis: Code(s): R82.90 - Unspecified abnormal findings in urine Status: Acute Assessment and Plan: U/A looks like infection however, he had a chronic catherine for some unknown reason. He is a hemodialysis patient and makes less than 1 cup of urine a day. * d/c catherine catheter * specimen was collected from old catherine catheter * suspect colonization rather than true infection. (4) End stage renal disease: Code(s): N18.6 - End stage renal disease Status: Chronic Assessment and Plan: End-stage renal disease on hemodialysis Thursday. Patient missed his last dialysis as he was too weak to go. * Nephrology was consulted for dialysis needs * Anticipate dialysis today * Renally dose medications * Patient has a Catherine catheter in place which appears to be chronic from known reason is he is end-stage renal disease requiring dialysis. Will discuss with Dr. Teran if we can remove the catheter. (5) Weakness generalized: Code(s): R53.1 - Weakness Status: Acute Assessment and Plan: Generalized weakness may be related to possible infection versus missed dialysis versus chronic deconditioning * PT OT consults are ordered for dispo recs. * Patient is a resident of [facility]. (6) Type 2 diabetes mellitus: Code(s): E11.9 - Type 2 diabetes mellitus without complications Status: Chronic Assessment and Plan: Hemoglobin A1c pending. Patient is normally on Lantus 15 units at night. * Low-dose sliding scale ordered * Hypoglycemia protocol ordered * A.c. HS Accu-Cheks * Lantus was resumed but 12 units nightly. Plan Feeding: Renal dialysis diet Analgesia: Tylenol Thromboembolic prophylaxis: On Eliquis Ulcer prophylaxis: Protonix Glycemic control: Low-dose SSI Bowel regimen: Not applicable as patient has C diff Lines: PIV Antibiotics: Cefepime, Vancomycin, and Flagyl for HAP/aspiration pneumonia. Dificid for c-diff colitis Disposition: Patient presented via EMS f
--- NOTE | 2024-04-03 07:00 | PM.IMPN ---
Progress Note: A&P Assessment and Plan (1) C. difficile diarrhea: Code(s): A04.72 - Enterocolitis due to Clostridium difficile, not specified as recurrent Status: Acute Assessment and Plan: Patient with diarrhea on admission and was C diff positive Patient was placed on isolation for C diff Started on Dificid for a total treatment of [address] showed pancolitis, cystitis, cholelithiasis. (2) Left lower lobe pneumonia: Code(s): J18.9 - Pneumonia, unspecified organism Status: Acute Assessment and Plan: Patient with complaints of weakness and low-grade temperature, presented with a white count 11.7. Chest x-ray shows a possible left lower lobe pneumonia. Will obtain CT of his chest today. Exam his lungs are clear but diminished. He is a poor historian and does not now he has had a cough or productive sputum. On Cefepime, vancomycin for HAP given care home residence. Flagyl was added for possible aspiration pneumonia. Speech did see him and had no concerns for aspiration. CT chest showed chronic bibasilar interstitial change, no consolidation. His respiratory exam is benign. Given this information will d/c cefe, vanco, and flagyl. He will remain on Rocephin for U/A concerning for UTI, however I do not feel strongly for urinary tract infection. Blood cultures with no growth and sputum culture ordered Procalcitonin 1.9, lactic 0.8 Upper respiratory viral panel was negative, MRSA detected. Isolation contact Incentive spirometry, pep Duo Nebs q.6 (3) Abnormal finding on urinalysis: Code(s): R82.90 - Unspecified abnormal findings in urine Status: Acute Assessment and Plan: U/A looks like infection however, he had a chronic catherine for some unknown reason. He is a hemodialysis patient and makes less than 1 cup of urine a day. d/c catherine catheter specimen was collected from old catherine catheter suspect colonization rather than true infection. (4) End stage renal disease: Code(s): N18.6 - End stage renal disease Status: Chronic Assessment and Plan: End-stage renal disease on hemodialysis Thursday. Patient missed his last dialysis as he was too weak to go. Nephrology was consulted for dialysis needs Anticipate dialysis today Renally dose medications Patient has a Catherine catheter in place which appears to be chronic from known reason is he is end-stage renal disease requiring dialysis. Will discuss with Dr. Teran if we can remove the catheter. (5) Weakness generalized: Code(s): R53.1 - Weakness Status: Acute Assessment and Plan: Generalized weakness may be related to possible infection versus missed dialysis versus chronic deconditioning PT OT consults are ordered for dispo recs. Patient is a resident of [facility]. (6) Type 2 diabetes mellitus: Code(s): E11.9 - Type 2 diabetes mellitus without complications Status: Chronic Assessment and Plan: Hemoglobin A1c pending. Patient is normally on Lantus 15 units at night. Low-dose sliding scale ordered Hypoglycemia protocol ordered A.c. HS Accu-Cheks Lantus was resumed but 12 units nightly. Plan Feeding: Renal dialysis diet Analgesia: Tylenol Thromboembolic prophylaxis: On Eliquis Ulcer prophylaxis: Protonix Glycemic control: Low-dose SSI Bowel regimen: Not applicable as patient has C diff Lines: PIV Antibiotics: Cefepime, Vancomycin, and Flagyl for HAP/aspiration pneumonia. Dificid for c-diff colitis Disposition: Patient presented via EMS from hemodialysis unit with concerns for weakness. Patient is a resident of [facility]. He is being admitted for missed dialysis, weakness, with possible pneumonia and new C diff infection. He is being treated with IV antibiotics and oral Dificid. PT OT consult have been ordered for dispo recs. Nephrology is consulted for dialysis needs. Earl
[2024-04-03 07:14] LABS: Anion Gap 11 mmol/L (4-12); Blood Urea Nitrogen 34 mg/dL (9-20); Calcium 7.9 mg/dL (8.4-10.2); Carbon Dioxide 30 mmol/L (22-30); Chloride 95 mmol/L (98-107); Estimated CRCL calculation 12 ml/min; Estimated Glomerular Filt Rate 8; Glucose 161 mg/dL (65-110); Potassium 3.2 mmol/L (3.4-5.0); Sodium 136 mmol/L (137-145)
[2024-04-03 08:24] LABS: Glucose Point of Care 156 mg/dl (65-105)
[2024-04-03] MEDS: APIXABAN 2.5 MG TABLET PO ×2 (09:55→21:39)
[2024-04-03] MEDS: TAMSULOSIN HCL 0.4 MG CAPSULE PO (09:55)
[2024-04-03] MEDS: MONTELUKAST SODIUM 10 MG TABLET PO (09:55)
[2024-04-03] MEDS: FLUoxetine HCL 20 MG CAPSULE PO (09:55)
[2024-04-03] MEDS: PENTOXIFYLLINE 400 MG TABCR PO ×3 (09:55→16:50)
[2024-04-03] MEDS: PANTOPRAZOLE 40 MG TABLET PO (09:55)
[2024-04-03] MEDS: FIDAXOMICIN 200 MG TABLET PO ×2 (09:55→21:38)
[2024-04-03] MEDS: ASPIRIN 81 MG ENTERIC TABLET PO (09:55)
[2024-04-03] MEDS: ATORVASTATIN 20 MG TABLET PO (09:56)
[2024-04-03] MEDS: MUPIROCIN 2% OINT 22 GM TUBE 1 APPLIC EACH NARE ×2 (09:56→21:55)
--- NOTE | 2024-04-03 10:55 | PM.CNNEP ---
Assessment and Plan Assessment and plan (1) End stage renal disease: Code(s): N18.6 - End stage renal disease Status: Chronic Assessment and Plan: HD yesterday (since missed dialysis treatment on Thursday continue/resume Thursday, Thursday, Thursday dialysis schedule tomorrow/next week follow electrolytes, clearance, and volume status (2) C. difficile colitis: Code(s): A04.72 - Enterocolitis due to Clostridium difficile, not specified as recurrent Status: Acute Assessment and Plan: noted diarrhea on admission C. diff toxin assay positive CT scan with pancolitis as well on isolation on dificid therapy (3) Pneumonia: Code(s): J18.9 - Pneumonia, unspecified organism Status: Acute Assessment and Plan: as suggested by admission imaging follow culture data viral testing negative was on antibiotics initially but this has been de-escalated incentive spirometry and nebulizer treatments follow respiratory status (4) Urinary tract infection: Qualifiers: Encounter type: initial encounter Indwelling urinary catheter type: indwelling urethral catheter Urinary tract infection type: catheter-associated UTI Qualified Code(s): T83.511A - Infection and inflammatory reaction due to indwelling urethral catheter, initial encounter; N39.0 - Urinary tract infection, site not specified Code(s): N39.0 - Urinary tract infection, site not specified Status: Acute Assessment and Plan: admission UA suggestive (but patient with chronic catherine - reason?) follow urine culture results on antibiotics (5) Hypertension: Code(s): I10 - Essential (primary) hypertension Status: Chronic Assessment and Plan: reasonable control follow trend of hemodynamics (6) Weakness generalized: Code(s): R53.1 - Weakness Status: Acute Assessment and Plan: suspect related to deconditioning as well as possible infection continue supportive therapy (7) Type 2 diabetes mellitus: Code(s): E11.9 - Type 2 diabetes mellitus without complications Status: Chronic Assessment and Plan: follow accu-cheks glycemic control per hospitalists I will continue follow the patient with you remains hospitalized and make recommendations as needed. Thank you for allowing me to participate in the care this patient. History of Present Illness Reason for Consult Consult date: 04/03/24 Reason for consult: end stage renal disease Chief Complaint Chief complaint: Pneumonia History of Present Illness Narrative: Most of the information I have obtained is from review of the electronic medical record and discussion with the physicians/nurses involved in the patient's care as it is difficult to get a full and complete history from the patient as he is a poor historian. The patient is a 63-year-old male with a past medical history as outlined below who presented to [facility] Emergency Room with complaints of generalized weakness. The patient states that he has been feeling quite weak for last several days if not longer in association with shaking which is a new symptom for him. Other symptoms included on off chest pain as well as a headache for last several days. Apparently, he has also been having some issues with diarrhea but this was not a significant complaint for him. Due to his profound weakness, he did not go to his scheduled dialysis treatment on 04/01/2024. Given his constellation of symptoms as mentioned, his nursing facility sent him to the emergency room for further assessment. Workup and evaluation emergency room demonstrated the patient be hemodynamically stable and in no acute distress. Routine blood tests were significant for his known history of end-stage renal disease and his CBC was notable for a mildly elevated white blood cell count of 11.7. He had no critical electrolyte abnorma
--- NOTE | 2024-04-03 10:55 | P.CONNP_ITS ---
Assessment and Plan Assessment and plan (1) End stage renal disease: Code(s): N18.6 - End stage renal disease Status: Chronic Assessment and Plan: * HD yesterday (since missed dialysis treatment on Thursday * continue/resume Thursday, Thursday, Thursday dialysis schedule tomorrow/next week * follow electrolytes, clearance, and volume status (2) C. difficile colitis: Code(s): A04.72 - Enterocolitis due to Clostridium difficile, not specified as recurrent Status: Acute Assessment and Plan: * noted diarrhea on admission * C. diff toxin assay positive * CT scan with pancolitis as well * on isolation * on dificid therapy (3) Pneumonia: Code(s): J18.9 - Pneumonia, unspecified organism Status: Acute Assessment and Plan: * as suggested by admission imaging * follow culture data * viral testing negative * was on antibiotics initially but this has been de-escalated * incentive spirometry and nebulizer treatments * follow respiratory status (4) Urinary tract infection: Qualifiers: Encounter type: initial encounter Indwelling urinary catheter type: indwelling urethral catheter Urinary tract infection type: catheter-associated UTI Qualified Code(s): T83.511A - Infection and inflammatory reaction due to indwelling urethral catheter, initial encounter; N39.0 - Urinary tract infection, site not specified Code(s): N39.0 - Urinary tract infection, site not specified Status: Acute Assessment and Plan: * admission UA suggestive (but patient with chronic catherine - reason?) * follow urine culture results * on antibiotics (5) Hypertension: Code(s): I10 - Essential (primary) hypertension Status: Chronic Assessment and Plan: * reasonable control * follow trend of hemodynamics (6) Weakness generalized: Code(s): R53.1 - Weakness Status: Acute Assessment and Plan: * suspect related to deconditioning as well as possible infection * continue supportive therapy (7) Type 2 diabetes mellitus: Code(s): E11.9 - Type 2 diabetes mellitus without complications Status: Chronic Assessment and Plan: * follow accu-cheks * glycemic control per hospitalists I will continue follow the patient with you remains hospitalized and make recommendations as needed. Thank you for allowing me to participate in the care this patient. History of Present Illness Reason for Consult Consult date: 04/03/24 Reason for consult: end stage renal disease Chief Complaint Chief complaint: Pneumonia History of Present Illness Narrative: Most of the information I have obtained is from review of the electronic medical record and discussion with the physicians/nurses involved in the patient's care as it is difficult to get a full and complete history from the patient as he is a poor historian. The patient is a 63-year-old male with a past medical history as outl ined below who presented to [facility] Emergency Room with complaints of generalized weakness. The patient states that he has been feeling quite weak for last several days if not longer in association with shaking which is a new symptom for him. Other symptoms included on off chest pain as well as a headache for last several days. Apparently, he has also been having some issues with diarrhea but this was not a significant complaint for him. Due to his profound weakness, he did not go to his scheduled dialysis treatment on 04/01/2024. Given his constellation of symptoms as
--- NOTE | 2024-04-03 10:58 | PCSTNOTE ---
Please refer to the Bedside Swallow Evaluation in the EMR. Please note, silent aspiration cannot be ruled out at bedside.
[2024-04-03 12:24] LABS: Glucose Point of Care 175 mg/dl (65-105)
[2024-04-03] MEDS: levETIRAcetam 500 MG TABLET PO ×2 (12:27→21:38)
--- NOTE | 2024-04-03 16:18 | PCPTNOTE ---
Spoke with hospitalist Regine Cortez APRN regarding patient's status, patient is currently functioning at baseline, with decreased motivation. skilled PT not appropriate at this time.
[2024-04-03 16:34] LABS: Glucose Point of Care 184 mg/dl (65-105)
[2024-04-03] MEDS: POTASSIUM CHLORIDE 20 MEQ ER TABLET PO (16:50)
[2024-04-03] MEDS: ISOSORBIDE MONONITRATE 60 MG TAB.ER.24H PO (16:50)
[2024-04-03] MEDS: carvediloL 3.125 MG TABLET PO (21:39)
[2024-04-03] MEDS: INSULIN GLARGINE (*BKC) 100 UNITS/ML 12 UNITS SUB-Q (21:42)
[2024-04-03 21:58] LABS: Glucose Point of Care 133 mg/dl (65-105)
--- NOTE | 2024-04-03 23:04 | PC.NURSE ---
04/03/24 @ 2139, Pertaining to void after catherine removal, patient has ESRD and receives dialysis treatments three times a week with minimal urine output.
[2024-04-04] VITALS (21 sets, daily range): BP systolic 114–144; BP diastolic 54–68; PULSE 54–72; RESP 14–20; TEMP 36.5–37; O2SAT 98–100
[2024-04-04 05:06] LABS: Basophils Percent Auto 0.2 % (0.2-1.2); Eosinophils Absolute Auto 0.4 K/mm3 (0-0.3); Eosinophils Percent Auto 4.8 % (0-4.4); Hematocrit 28.5 % (42.0-52.0); Hemoglobin 9.2 g/dL (14.0-18.0); Immature Granulocyte Absolute 0.09 K/mm3 (0.00-0.031); Immature Granulocyte Percent A 1.1 % (0-0.5); Lymphocytes Absolute Auto 1.23 K/mm3 (0.9-3.2); Lymphocytes Percent Auto 14.4 % (18.3-44.2); Mean Corpuscular HGB Conc 32.3 g/dl (32-36); Mean Corpuscular Hemoglobin 31.2 pg (26-34); Mean Corpuscular Volume 96.6 fl (80-100); Mean Platelet Volume 9.2 fl (7.4-10.4); Monocytes Absolute Auto 0.8 K/mm3 (0.1-0.6); Monocytes Percent Auto 9.2 % (2.6-8.5); Neutrophils Percent Auto 70.3 % (45.5-73.1); Platelet Count Result 155 k/mm3 (150-375); Red Blood Count 2.95 M/mm3 (4.6-6.20); Red Cell Distribution Width 14.6 % (11.5-14.5); White Blood Count 8.6 K/mm3 (4.5-10.0)
[2024-04-04 05:18] LABS: Alanine Aminotransferase 15 U/L (6-50); Albumin Level 2.9 g/dL (3.5-5.1); Alkaline Phosphatase 89 U/L (38-126); Anion Gap 11 mmol/L (4-12); Aspartate Amino Transferase 22 U/L (17-59); Bilirubin,Total 0.4 mg/dL (0.2-1.3); Blood Urea Nitrogen 42 mg/dL (9-20); Calcium 7.7 mg/dL (8.4-10.2); Carbon Dioxide 29 mmol/L (22-30); Chloride 96 mmol/L (98-107); Estimated CRCL calculation 9 ml/min; Estimated Glomerular Filt Rate 6; Glucose 94 mg/dL (65-110); Magnesium 1.8 mg/dL (1.6-2.3); Potassium 3.1 mmol/L (3.4-5.0); Sodium 136 mmol/L (137-145)
[2024-04-04 05:49] LABS: Vancomycin Random 16.1 ug/mL (10-20)
[2024-04-04 07:55] LABS: Glucose Point of Care 96 mg/dl (65-105)
--- NOTE | 2024-04-04 07:55 | PC.NURSE ---
To dialysis via bed.
--- NOTE | 2024-04-04 09:51 | PM.PNNEP ---
Progress Note: A&P Assessment and Plan (1) End stage renal disease: Code(s): N18.6 - End stage renal disease Status: Chronic Assessment and Plan: HD today continue/resume Thursday, Thursday, Thursday dialysis schedule tomorrow/next week follow electrolytes, clearance, and volume status (2) C. difficile colitis: Code(s): A04.72 - Enterocolitis due to Clostridium difficile, not specified as recurrent Status: Acute Assessment and Plan: noted diarrhea on admission C. diff toxin assay positive CT scan with pancolitis as well on isolation on dificid therapy (3) Left lower lobe pneumonia: Code(s): J18.9 - Pneumonia, unspecified organism Status: Acute Assessment and Plan: as suggested by admission imaging follow culture data viral testing negative was on antibiotics initially but this has been de-escalated incentive spirometry and nebulizer treatments follow respiratory status (4) Urinary tract infection: Qualifiers: Encounter type: initial encounter Indwelling urinary catheter type: indwelling urethral catheter Urinary tract infection type: catheter-associated UTI Qualified Code(s): T83.511A - Infection and inflammatory reaction due to indwelling urethral catheter, initial encounter; N39.0 - Urinary tract infection, site not specified Code(s): N39.0 - Urinary tract infection, site not specified Status: Acute Assessment and Plan: admission UA suggestive (but patient had chronic catherine on admission - reason?) catherine catheter dc'd urine culture never sent on antibiotics (5) Hypertension: Code(s): I10 - Essential (primary) hypertension Status: Chronic Assessment and Plan: reasonable control follow trend of hemodynamics (6) Weakness generalized: Code(s): R53.1 - Weakness Status: Acute Assessment and Plan: suspect related to deconditioning as well as possible infection continue supportive therapy (7) Type 2 diabetes mellitus: Code(s): E11.9 - Type 2 diabetes mellitus without complications Status: Chronic Assessment and Plan: follow accu-cheks glycemic control per hospitalists Will continue to follow. Subjective Date/time seen: 04/04/24 09:51 Interval history: Follow-up for end stage renal disease on hemodialysis. Tolerating dialysis treatment at the time of my visit (seen on HD at 09:40AM); sleeping comfortably when seen; no apparent distress noted; no issues/events overnight or earlier this morning. Exam Narrative: General: mildly ill-appearing male in NAD Heart: normal S1 and S2; no rub Lungs: clear anteriorly; coarse at bases Abdomen: soft, nontender, nondistended, positive bowel sounds Extremities: no cyanosis or clubbing; no edema; s/p left BKA Skin: warm and intact Objective Data Vital Signs Vital Signs: Vital Signs Temp Pulse Resp BP Pulse Ox O2 Del Method FiO2 04/04/24 09:45 54 L 127/59 L 04/04/24 09:30 58 L 114/56 L 04/04/24 09:15 56 L 125/56 L 04/04/24 09:00 60 136/58 L 04/04/24 08:45 64 135/62 04/04/24 08:30 60 139/64 04/04/24 11:00 63 126/56 L 04/04/24 10:45 66 142/63 H 04/04/24 08:13 61 122/60 04/04/24 07:40 20 100 Room Air 04/04/24 08:04 98.4 F 69 16 138/59 L 98 04/04/24 08:04 98 04/04/24 04:41 97.7 F 64 20 125/54 L 100 04/03/24 21:39 Room Air 04/03/24 21:39 70 04/03/24 20:40 97.4 F L 70 20 118/58 L 98 04/03/24 16:00 98.4 F 70 20 128/56 L 99 Intake/Output Intake/Output: Intake & Output 04/01/24 04/02/24 04/03/24 04/04/24 23:59 23:59 23:59 23:59 Intake Total 233 872 4105 360 Output Total 545 494 2039 Balance 725 841 [id number] -1140 Meds/Results Medications: Active Medications Generic Name Dose Route Start Last Admin Trade Name Tang Mejia
--- NOTE | 2024-04-04 09:51 | P.PNNP_ITS ---
Progress Note: A&P Assessment and Plan (1) End stage renal disease: Code(s): N18.6 - End stage renal disease Status: Chronic Assessment and Plan: * HD today * continue/resume Thursday, Thursday, Thursday dialysis schedule tomorrow/next week * follow electrolytes, clearance, and volume status (2) C. difficile colitis: Code(s): A04.72 - Enterocolitis due to Clostridium difficile, not specified as recurrent Status: Acute Assessment and Plan: * noted diarrhea on admission * C. diff toxin assay positive * CT scan with pancolitis as well * on isolation * on dificid therapy (3) Left lower lobe pneumonia: Code(s): J18.9 - Pneumonia, unspecified organism Status: Acute Assessment and Plan: * as suggested by admission imaging * follow culture data * viral testing negative * was on antibiotics initially but this has been de-escalated * incentive spirometry and nebulizer treatments * follow respiratory status (4) Urinary tract infection: Qualifiers: Encounter type: initial encounter Indwelling urinary catheter type: indwelling urethral catheter Urinary tract infection type: catheter-associated UTI Qualified Code(s): T83.511A - Infection and inflammatory reaction due to indwelling urethral catheter, initial encounter; N39.0 - Urinary tract infection, site not specified Code(s): N39.0 - Urinary tract infection, site not specified Status: Acute Assessment and Plan: * admission UA suggestive (but patient had chronic catherine on admission - reason?) * catherine catheter dc'd * urine culture never sent * on antibiotics (5) Hypertension: Code(s): I10 - Essential (primary) hypertension Status: Chronic Assessment and Plan: * reasonable control * follow trend of hemodynamics (6) Weakness generalized: Code(s): R53.1 - Weakness Status: Acute Assessment and Plan: * suspect related to deconditioning as well as possible infection * continue supportive therapy (7) Type 2 diabetes mellitus: Code(s): E11.9 - Type 2 diabetes mellitus without complications Status: Chronic Assessment and Plan: * follow accu-cheks * glycemic control per hospitalists Will continue to follow. Subjective Date/time seen: 04/04/24 09:51 Interval history: Follow-up for end stage renal disease on hemodialysis. Tolerating dialysis treatment at the time of my visit (seen on HD at 09:40AM); sleeping comfortably when seen; no apparent distress noted; no issues/events overnight or earlier this morning. Exam Narrative: General: mildly ill-appearing male in NAD Heart: normal S1 and S2; no rub Lungs: clear anteriorly; coarse at bases Abdomen: soft, nontender, nondistended, positive bowel sounds Extremities: no cyanosis or clubbing; no edema; s/p left BKA Skin: warm and intact Objective Data Vital Signs Vital Signs: Vital Signs Temp Pulse Resp BP Pulse Ox O2 Del Method FiO2 04/04/24 09:45 54 L 127/59 L 04/04/24 09:30 58 L 114/56 L 04/04/24 09:15 56 L 125/56 L 04/04/24 09:00 60 136/58 L 04/04/24 08:45 64 135/62 04/04/24 08:30 60 139/64 04/04/24 11:00 63 126/56 L 04/04/24 10:45 66 142/63 H 04/04/24 08:13 61 122/60
[2024-04-04] MEDS: EPOETIN ALFA-EPBX 10,000 UNITS/ML VIAL 10000 UNITS IV PUSH (09:54)
[2024-04-04] MEDS: HEPARIN SODIUM 1,000 UNITS/ML VIAL 5000 UNITS (09:55)
--- NOTE | 2024-04-04 12:15 | PC.NURSE ---
Returned from dialysis via bed.
[2024-04-04] MEDS: PANTOPRAZOLE 40 MG TABLET PO (12:23)
[2024-04-04] MEDS: MONTELUKAST SODIUM 10 MG TABLET PO (12:23)
[2024-04-04] MEDS: ISOSORBIDE MONONITRATE 60 MG TAB.ER.24H PO ×2 (12:23→18:44)
[2024-04-04] MEDS: ATORVASTATIN 20 MG TABLET PO (12:23)
[2024-04-04] MEDS: amLODIPine BESYLATE 5 MG TABLET PO (12:23)
[2024-04-04] MEDS: PENTOXIFYLLINE 400 MG TABCR PO ×2 (12:23→17:43)
[2024-04-04] MEDS: carvediloL 3.125 MG TABLET PO (12:24)
[2024-04-04] MEDS: ESCITALOPRAM OXALATE 10 MG TABLET PO (12:24)
[2024-04-04] MEDS: FLUoxetine HCL 20 MG CAPSULE PO (12:24)
[2024-04-04] MEDS: TAMSULOSIN HCL 0.4 MG CAPSULE PO (12:24)
[2024-04-04] MEDS: ASPIRIN 81 MG ENTERIC TABLET PO (12:24)
[2024-04-04] MEDS: APIXABAN 2.5 MG TABLET PO (12:24)
[2024-04-04] MEDS: levETIRAcetam 500 MG TABLET PO (12:25)
[2024-04-04] MEDS: FIDAXOMICIN 200 MG TABLET PO (12:25)
[2024-04-04] MEDS: MUPIROCIN 2% OINT 22 GM TUBE 1 APPLIC EACH NARE (12:26)
[2024-04-04 12:32] LABS: Glucose Point of Care 85 mg/dl (65-105)
--- NOTE | 2024-04-04 13:50 | PM.DS ---
DS: Admitting Diagnosis Discharge Date 04/04 Admitting Diagnosis Weakness DS: Discharge Diagnosis Discharge Diagnosis (1) Left lower lobe pneumonia: Code(s): J18.9 - Pneumonia, unspecified organism Status: Acute Assessment and Plan: To regular medical floor patient started on antibiotics cultures in progress supportive care continue to monitor (2) Weakness generalized: Code(s): R53.1 - Weakness Status: Acute Assessment and Plan: Likely secondary to acute illness in the setting of ESRD on HD chronic illness (3) ESRD on hemodialysis: Code(s): N18.6 - End stage renal disease; Z99.2 - Dependence on renal dialysis Status: Acute Assessment and Plan: Resume dialysis as needed (4) Type 2 diabetes mellitus: Code(s): E11.9 - Type 2 diabetes mellitus without complications Status: Chronic Assessment and Plan: resume home meds DS: Summary Hospital Course Reason for hospitalization: C diff colitis Hospital Course: This is a 63-year-old male with a past medical history significant for end-stage renal disease hemodialysis Thursday, legally blind, diabetes, left BKA, diabetic neuropathy, hypertension, AFib on Eliquis, BPH, history of stroke, seizures, and anxiety who presented to the emergency room with weakness. He skipped his last hemodialysis treatment because he was too weak to go and was feeling overall unwell. Initially he was started on treatment for a possible pneumonia. However his respiratory exam was completely benign. He was seen by speech therapy and there were no concerns of aspiration. While he was MRSA nares positive, suspect colonization. He was found to have c-diff colitis which is thought to be the cause of his weakness and leukocytosis. He was started on Dificid treatment for a total course of 10 days. Nephrology was consulted for his hemodialysis needs. Overall he did well and was able to discharge back to his SNF in stable condition. Time Spent with Patient Time attestation: Total time spent providing and/or coordinating discharge services: 76 Exam Narrative: General: Appears well, appears stated age. HEENT: normocephalic, atraumatic. Mucous membranes dry and tacky. Blind, purulent drainage to left conjunctiva, Neck supple without JVD, lymphadenopathy, or bruit. Respiratory: clear to auscultation, slightly diminished bilaterally. No rales/rhonic/wheezes. Cardiovascular: Regular rate and rhythm, normal S1-S2 upon auscultation. No murmurs, rubs, or clicks. PMI is nondisplaced, capillary refill less than 3 second. Abdomen: Soft, round, no pulsatile masses, nondistended and mildly tender upon palpation to right lower quadrant with guarding. No CVA tenderness, no hepatosplenomegaly. Bowel sounds present to all four quadrants. No high pitch or tinkling sounds, resonant to percussion. Extremities: No cyanosis, clubbing, or edema present. Presents of a left BKA Pulses are palpable 2/1. Active ROM to all four extremities but generally weak. Neuro: Alert and orientated x 1-2. PERRLA. Cranial nerves 2-12 intact without focal deficit. Skin: Warm, dry, and intact, scattered abrasion right lower extremity Lines: PIV, left upper extremity AV fistula positive bruit and thrill Incisions: Psych: cooperative, normal speech, normal affect, no hallucinations, no dysarthria, confusion DS: Data Data Completed and Pending Labs on day of discharge: Labs from last 24 hours 04/04/24 04/04/24 04/04/24 12:25 07:44 04:59 WBC 8.6 RBC 2.95 L Hgb 9.2 L Hct 28.5 L MCV 96.6 MCH 31.2 MCHC 32.3 RDW 14.6 H Plt Count 155 MPV 9.2 Immature Gran % (Auto) 1.1 H Neut % (Auto) 70.3 Lymph % (Auto) 14.4 L [place] % (Auto) 9.2 H Eos % (Auto) 4.8 H Baso % (Auto) 0.2 Lymph # (Auto) 1.23 [place] # (Auto) 0.8 H Eos # (Auto) 0.4 H Baso # (Auto) 0.0 Abs Immat Gran (auto) 0.09 H Abs
[2024-04-04 16:45] LABS: Glucose Point of Care 132 mg/dl (65-105)
[2024-04-07 18:38] LABS: Mycoplasma IgM Antibody Titer 1326 U/mL
== END 2024-04-04 18:55 | DRG 193 ==
LOC: ANHED 12:12 → ANHIMU 20:57 → ANH2MED 04-02 22:15
PROVIDERS: Emergency Medicine; Internal Medicine; Internal Medicine Nephrology; Student in an Organized Health Care Education/Training Program; Admitting Provider Internal Medicine; Emergency Provider Emergency Medicine; PCP Hospitalist; Visit Provider Nurse Practitioner Acute Care
DX: J18.9 Pneumonia, unspecified organism (principal); N18.6 End stage renal disease; T83.511A Infection and inflammatory reaction due to indwelling urethral catheter, initial encounter; N39.0 Urinary tract infection, site not specified; I12.0 Hypertensive chronic kidney disease with stage 5 chronic kidney disease or end stage renal disease; A04.72 Enterocolitis due to Clostridium difficile, not specified as recurrent; I48.20 Chronic atrial fibrillation, unspecified; E11.22 Type 2 diabetes mellitus with diabetic chronic kidney disease; E78.5 Hyperlipidemia, unspecified; E11.40 Type 2 diabetes mellitus with diabetic neuropathy, unspecified; K80.20 Calculus of gallbladder without cholecystitis without obstruction; N40.0 Benign prostatic hyperplasia without lower urinary tract symptoms; H54.8 Legal blindness, as defined in USA; G40.909 Epilepsy, unspecified, not intractable, without status epilepticus; F41.9 Anxiety disorder, unspecified; Z20.822 Contact with and (suspected) exposure to COVID-19; Z22.322 Carrier or suspected carrier of Methicillin resistant Staphylococcus aureus; Z79.1 Long term (current) use of non-steroidal anti-inflammatories (NSAID); Z99.2 Dependence on renal dialysis; Z89.512 Acquired absence of left leg below knee; Z79.82 Long term (current) use of aspirin; Z79.4 Long term (current) use of insulin; Z86.73 Personal history of transient ischemic attack (TIA), and cerebral infarction without residual deficits
CPT/HCPCS: 36415; 70450; 71046; 71250; 74176; 80048; 80053; 80202; 82565; 82948; 83036; 83605; 83735; 84145; 84484; 85025; 85610; 85730; 86706; 86738; 87040; 87340; 87493; 87637; 87641; 92610; 93005; 94640; 94667; 96361; 96365; 96367; 96375; 97165; 99285; A9270; G0257; G0378; J0456; J0692; J0696; J1644; J1815; J1836; J3370; J7030; J7040; P9047; Q5105

== ENCOUNTER 2024-07-08 22:37 | Inpatient (IN) | payer MEDICARE, MEDICAID, SELFPAY ==
[2024-07-08] VITALS (11 sets, daily range): BP systolic 119–141; BP diastolic 62–72; PULSE 51–67; RESP 12–21; TEMP 36.4; O2SAT 93–100
--- NOTE | ~2024-07-08 | CT_ITS ---
CT chest abdomen pelvis wo con Ordering provider: Lea Griffin PA-C History: . hematuria and abdominal pain . Comparison: None. Technique: CT chest without IV contrast. CT abdomen and pelvis without oral and IV contrast. Radiatio n reduction technique utilized. The dose-length product was 1190.02 mGy-cm. FINDINGS: The study is limited due to lack of IV contrast. CHEST: --VISUALIZED THORACIC INLET: Normal as visualized. --MEDIASTINUM: Aorta/coronary arteries: Mild atheromatous disease. Ascending aorta measures 3.6 cm. Heart/other: The heart is slightly enlarged. Lymph nodes: No mediastinal or hilar adenopathy. Dilated thickened wall esophagus with air-fluid levels seen in the upper esophagus suggestive of refl ux esophagitis. --LUNGS: Dependent atelectatic changes with bronchiectatic changes seen in the lung bases suggestive of fibrotic changes. Focal thickening in the right oblique fissure is noted. No pulmonary nodules or masses. No infiltrates or effusions. No pneumothorax. --MUSCULOSKELETAL: Soft tissues: The superficial soft tissues are normal. Bones: Age appropriate degenerative changes of the spine. ABDOMEN/PELVIS: --MUSCULOSKELETAL: Bones: Age appropriate degenerative changes of the spine. Right hip arthroplasty. Cystic Changes in t he left acetabulum most likely degenerative. Superficial soft tissues: The superficial soft tissues are normal. --UPPER ABDOMINAL ORGANS: Liver: Normal. Gallbladder: Cholelithiasis. Spleen: Normal. Stomach/duodenum: Normal. Pancreas: Normal. Adrenals: Slightly prominent both adrenal glands Kidneys: Normal. --PELVIC ORGANS: The bladder is slightly underfilled with Fournier's catheter. No bladder stones. --BOWEL AND MESENTERY: Colon: No evidence of diverticulitis.. Normal appendix. Small Bowel: Normal. No obstruction. Peritoneum/mesentery: No free air or free fluid. No mesenteric lymphadenopathy. Minimal fat stranding in the pelvis posteriorly. --RETROPERITONEUM: Mild atheromatous disease of the abdominal aorta. No retroperitoneal lymphadenop athy. IMPRESSION: CHEST: 1. Bronchiectatic changes in the lower lobes superiorly suggestive of fibrotic changes. 2. Dilated esophagus with thickening of the wall suggestive of esophagitis. ABDOMEN/PELVIS: 1. Cholelithiasis. 2. No evidence of appendicitis, diverticulitis or intestinal obstruction. No definite kidney stones. Reviewed, dictated and finalized at location A. IMPRESSION: CHEST: 1. Bronchiectatic changes in the lower lobes superiorly suggestive of fibrotic changes. 2. Dilated esophagus with thickening of the wall suggestive of esophagitis. ABDOMEN/PELVIS: 1. Cholelithiasis. 2. No evidence of appendicitis, diverticulitis or intestinal obstruction. No d efinite kidney stones.
--- NOTE | ~2024-07-08 | XR_ITS ---
XR chest 1V portable 07/09/2024 11:56 Indication: Shortness of breath. End-stage renal disease. Procedure: AP portable chest Comparison: Comparison to multiple prior studies sequentially, with oldest reviewed study dated 07/23. Findings: Cardiomegaly. No focal air space disease, pulmonary edema, pleural effusion or suspected pn eumothorax. No acute osseous abnormality. Impression: 1: No acute cardiopulmonary disease. Reviewed, dictated and finalized at location B. Impression: 1: No acute cardiopulmonary disease.
--- NOTE | ~2024-07-08 | XR_ITS ---
XR abdomen/kub 1V 07/09/2024 11:56 INDICATION: Hematuria TECHNIQUE: KUB COMPARISON: None FINDINGS: Bowel gas pattern is normal. There is no evidence of free air, mass, organomegaly, ascites or obstruction. No abnormal calculi are seen. The bones appear intact. There is a right hip arthro plasty with remodeling and subluxation of the acetabular component. There is severe osteoarthritis of the left hip. IMPRESSION: 1: No acute abdominal abnormality identified. 2: Right hip arthroplasty with remodeling of the acetabulum and superior subluxation of the acetabula r component. Reviewed, dictated and finalized at location B. IMPRESSION: 1: No acute abdominal abnormality identified. 2: Right hip arthroplasty with remodeling of the acetabulum and superior sublux ation of the acetabular component.
--- NOTE | 2024-07-08 23:02 | ED_ITS ---
HPI - Male Genitourinary General Chief complaint: Urogenital-Male Stated complaint: blood in catherine Time Seen by Provider: 07/08/24 22:53 Source: patient and EMS Mode of arrival: EMS Limitations: no limitations History of Present Illness HPI Narrative: Patient from shelter, on dialysis, chronic Catherine catheter presenting for blood in his Catherine catheter today. skilled nursing is essentially useless, not giving us any information about his history. No idea how long his catheter has been in. Reports he missed dialysis today but not giving us a reason why. Patient says he feels well, does not have any complaints. No abdominal pain. Related Data Home Medications Medication Instructions Recorded Confirmed Tums 750 mg PO HS 08/17/23 07/09/24 amlodipine 10 mg tablet 5 mg PO DAILY 08/17/23 07/09/24 apixaban 2.5 mg tablet (Eliquis) 2.5 mg PO BID 08/17/23 07/09/24 aspirin 81 mg PO DAILY 08/17/23 07/09/24 atorvastatin 20 mg tablet 20 mg PO HS 08/17/23 07/09/24 carvedilol 3.125 mg tablet 3.125 mg PO BID 08/17/23 07/09/24 cholecalciferol (vitamin D3) 2,000 units PO DAILY 08/17/23 07/09/24 insulin glargine 100 unit/mL (3 15 unit subcut HS 08/17/23 07/09/24 mL) subcutaneous pen (Lantus Solostar U-100 Insulin) isosorbide mononitrate 60 mg 60 mg PO BID 08/17/23 07/09/24 tablet,extended release 24 hr levetiracetam 500 mg tablet 500 mg PO BID 08/17/23 07/09/24 melatonin 5 mg PO HS 08/17/23 07/09/24 montelukast 10 mg tablet 10 mg PO HS 08/17/23 07/09/24 pantoprazole 40 mg tablet,delayed 40 mg PO DAILY 08/17/23 07/09/24 release pen needle, diabetic, safety 30 08/17/23 07/09/24 gauge x 5/16 (Easy Touch Safety Pen Needle) pentoxifylline 400 mg 400 mg PO TID 08/17/23 07/09/24 tablet,extended release tamsulosin 0.4 mg capsule 0.4 mg PO DAILY 08/17/23 07/09/24 acetaminophen 325 mg tablet 650 mg PO Q6H PRN Pain (Scale 04/03/24 07/09/24 (Tylenol) Score 1-3) escitalopram oxalate 10 mg tablet 10 mg PO DAILY 04/03/24 07/09/24 (Lexapro) Allergies Allergy/AdvReac Type Severity Reaction Status Date / Time bacitracin Allergy Unknown Unknown Verified 07/09/24 02:48 gramicidin D Allergy Unknown Unknown Verified 07/09/24 02:48 neomycin Allergy Unknown Unknown Verified 07/09/24 02:48 polymyxin B Allergy Unknown Unknown Verified 07/09/24 02:48 Dairy Allergy Unknown Unknown Uncoded 07/09/24 02:48 Review of Systems Review of Systems: All systems reviewed & are unremarkable except as noted in HPI and below PMFSH Past Medical History Medical History ESRD on hemodialysis Hypertension Family History Family History (Updated 07/09/24 @ 02:36 by Zhane Perez RN) Other Unknown family medical history Social History Social History Smoking status: Never smoker Alcohol intake: never Substance use: never Substance use type: crack/cocaine Last use: 2013 Do You Feel Safe in your Home?: Yes Lack of Transportation: No Lack of Food: Never True Current Housing: I Have Housing Concerned About Future Housing: No Difficulty Paying Gas/Electric Bills: No Difficulty Paying for Meds: No Currently Unemployed: No Education: High School Diploma/GED Difficulty w/ Childcare or Family Care: No Spiritual care concerns: No Exam Narrative: Constitutional: Generally well appearing, no acute distress Head: Atraumatic, no deformities. Eyes: Blind bilaterally Neck: Supple, no tracheal deviation, no JVD. ENMT: Mucous membranes moist Cardiovascular: S1, S2 auscultated. No murmurs, rubs, or gallops. No S3/S4. Normal Distal pulses. No peripheral edema. Respiratory: Lung sounds equal. No wheezes, rales, or rhonchi. Gastrointestinal: Abdomen was soft and non-tender. Non-distended. No rebound or guarding. Genitourinary: Normal appearance of penis. Catherine catheter in place. Does have bloody urine in the catheter Musculoskeletal: Normal muscle tone and bulk. No obvious deformities or tenderness over extremities. Skin: No rashes. Neurological: Strength 5/5 in extremities. Cranial nerves I-XII grossly intact. Distal sensation intact. Mental Status: Awake, alert and oriented x3. Follows commands Course Vital Signs Vital signs: Vital Signs Temperature 36.4 C L 07/08/24 22:37 Pulse Rate 67 07/08/24 22:37 Respiratory Rate 17 07/08/24 22:37 Blood Pressure 141/72 H 07/08/24 22:37 Pulse Oximetry 100 07/08/24 22:37 Oxygen Delivery Room Air 07/08/24 22:37 Temperature 36.4 C L 07/08/24 22:37 Pulse Rate 53 L 07/09/24 01:31 Respiratory Rate 18 07/09/24 01:31 Blood Pressure 112/61 07/09/24 01:31 Pulse Oximetry 99 07/09/24 01:15 Oxygen Delivery Room Air 07/08/24 22:37 MDM - Male Genitourinary MDM Narrative Medical decision making narrative: 64-year-old here for blood in his urine. He is a dialysis patient as well. Exam shows hematuria, no obvious trauma to the penis. Bedside ultrasound shows he does not have any significant amount of fluid in his bladder. Does have bloody urine in his Catherine bag. Obtaining basic labs, urinalysis. Will replace the Catherine catheter. Workup shows evidence of urinary tract infection. For catheter replaced. Started ceftriaxone. Admitted to hospitalist. Lab Data 07/08/24 23:26 07/08/24 23:26 Labs: Lab Results 07/08/24 Range/Units 23:26 WBC 17.5 H (4.5-10.0) K/mm3 RBC 3.43 L (4.6-6.20) M/mm3 Hgb 10.6 L (14.0-18.0) g/dL Hct 33.2 L (42.0-52.0) % MCV 96.8 (80-100) fl MCH 30.9 (26-34) pg MCHC 31.9 L (32-36) g/dl RDW 14.8 H (11.5-14.5) % Plt Count 247 D (150-375) k/mm3 MPV 9.1 (7.4-10.4) fl Immature Gran % (Auto) 0.6 H (0-0.5) % Neut % (Auto) 90.8 H (45.5-73.1) % Lymph % (Auto) 4.5 L (18.3-44.2) % [place] % (Auto) 3.9 (2.6-8.5) % Eos % (Auto) 0.0 (0-4.4) % Baso % (Auto) 0.2 (0.2-1.2) % Lymph # (Auto) 0.78 L (0.9-3.2) K/mm3 [place] # (Auto) 0.7 H (0.1-0.6) K/mm3 Eos # (Auto) 0.0 (0-0.3) K/mm3 Baso # (Auto) 0.0 (0.0-0.1) K/mm3 Abs Immat Gran (auto) 0.11 H (0.00-0.031) K/mm3 Absolute Neuts (auto) 15.9 H (1.3-6.7) K/mm3 Absolute Nucleated RBC 0.000 (0.0-0.012) K/mm3 Nucleated RBC % 0.0 (0.0-0.2) % Sodium 138 (137-145) mmol/L Potassium 3.9 (3.4-5.0) mmol/L Chloride 96 L (98-107) mmol/L Carbon Dioxide 34 H (22-30) mmol/L Anion Gap 8 (4-12) mmol/L BUN 36 H (9-20) mg/dL Creatinine 7.40 H (0.7-1.3) mg/dL Estim Creat Clear Calc Not Reportable Estimated GFR 8 L (59 - ) Glucose 152 H (65-110) mg/dL Calcium 8.6 (8.4-10.2) mg/dL Total Bilirubin 0.6 (0.2-1.3) mg/dL AST 19 (17-59) U/L ALT 9 (6-50) U/L Alkaline Phosphatase 113 (38-126) U/L Total Protein 8.0 (6.3-8.2) g/dL Albumin 3.9 (3.5-5.1) g/dL Discharge Plan Discharge Clinical Impression: Acute UTI Patient Disposition: Still a Patient Condition: Stable
--- NOTE | 2024-07-08 23:27 | PC.NURSE ---
rn irrigated catherine and catherine bag.no difficulty in flushing either.
[2024-07-08] MEDS: WATER FOR IRRIGATION, STERILE 500 ML BOTTLE 1000 ML (23:29)
[2024-07-08 23:32] LABS: Basophils Percent Auto 0.2 % (0.2-1.2); Hematocrit 33.2 % (42.0-52.0); Hemoglobin 10.6 g/dL (14.0-18.0); Immature Granulocyte Absolute 0.11 K/mm3 (0.00-0.031); Immature Granulocyte Percent A 0.6 % (0-0.5); Lymphocytes Absolute Auto 0.78 K/mm3 (0.9-3.2); Lymphocytes Percent Auto 4.5 % (18.3-44.2); Mean Corpuscular HGB Conc 31.9 g/dl (32-36); Mean Corpuscular Hemoglobin 30.9 pg (26-34); Mean Corpuscular Volume 96.8 fl (80-100); Mean Platelet Volume 9.1 fl (7.4-10.4); Monocytes Absolute Auto 0.7 K/mm3 (0.1-0.6); Monocytes Percent Auto 3.9 % (2.6-8.5); Neutrophils Absolute Auto 15.9 K/mm3 (1.3-6.7); Neutrophils Percent Auto 90.8 % (45.5-73.1); Platelet Count Result 247 k/mm3 (150-375); Red Blood Count 3.43 M/mm3 (4.6-6.20); Red Cell Distribution Width 14.8 % (11.5-14.5); White Blood Count 17.5 K/mm3 (4.5-10.0)
[2024-07-08 23:46] LABS: Alanine Aminotransferase 9 U/L (6-50); Albumin Level 3.9 g/dL (3.5-5.1); Alkaline Phosphatase 113 U/L (38-126); Anion Gap 8 mmol/L (4-12); Aspartate Amino Transferase 19 U/L (17-59); Bilirubin,Total 0.6 mg/dL (0.2-1.3); Blood Urea Nitrogen 36 mg/dL (9-20); Calcium 8.6 mg/dL (8.4-10.2); Carbon Dioxide 34 mmol/L (22-30); Chloride 96 mmol/L (98-107); Estimated Glomerular Filt Rate 8; Glucose 152 mg/dL (65-110); Potassium 3.9 mmol/L (3.4-5.0); Sodium 138 mmol/L (137-145)
[2024-07-09] VITALS (22 sets, daily range): BP systolic 111–163; BP diastolic 44–88; PULSE 52–91; RESP 15–30; TEMP 36.2–37.1; O2SAT 94–100; BMI 26.9
--- NOTE | 2024-07-09 00:52 | PC.NURSE ---
this RN flushed patient catherine for hematuria, no resistance noted, draining appropriately, no clots noted. This RN then changed patient Catherine per provider order due to unknown outside facility placement and gross hematuria. Upon removing old Catherine, foul smelling pus noted on end of catheter. Penis cleaned and disinfected per protocol and new catheter placed. No urine output at thiis time due to pt being on dialysis and makes little urine anyway. Pt also noted to have a BM, cleaned up and linens changed.
--- NOTE | 2024-07-09 01:00 | PM.IMHP ---
H&P: HPI History of Present Illness Date/Time: 07/09/24 01:00 Chief Complaint: hematuria Narrative: This is a 64-year-old male with past medical history significant for end-stage renal disease on hemodialysis, left BKA, insulin-dependent diabetes mellitus, diabetic retinopathy, blindness, atrial fibrillation, rate controlled anticoagulated, peripheral vascular disease. Patient is a resident at a senior living. Was brought to the emergency room for evaluation of hematuria episode and no urine output. In emergency room it was noted purulent material upon catheterization and Fournier placement. Preliminary workup was [place] [address], chemistry panel showed a creatinine of 7.4 8 urinalysis showed more than 100 wbc's present per high power field. Patient has been started on antibiotic. Will be admitted for further evaluation management and treatment. Review of Systems Review of Systems: ROS unobtainable: Yes other ( Obtundation, lethargy) PMFSH Past Medical History Medical History ESRD on hemodialysis Hypertension Family History Family History (Updated 07/09/24 @ 02:36 by Zhane Perez RN) Other Unknown family medical history Social History Social History Smoking status: Never smoker Alcohol intake: never Substance use: never Substance use type: crack/cocaine Last use: 2013 Do You Feel Safe in your Home?: Yes Lack of Transportation: No Lack of Food: Never True Current Housing: I Have Housing Concerned About Future Housing: No Difficulty Paying Gas/Electric Bills: No Difficulty Paying for Meds: No Currently Unemployed: No Education: High School Diploma/GED Difficulty w/ Childcare or Family Care: No Spiritual care concerns: No Meds Home Medications and Allergies Home Medications Medication Instructions Recorded Confirmed Type Tums 750 mg PO HS 08/17/23 07/09/24 History amlodipine 10 mg tablet 5 mg PO DAILY 08/17/23 07/09/24 History apixaban 2.5 mg tablet (Eliquis) 2.5 mg PO BID 08/17/23 07/09/24 History aspirin 81 mg PO DAILY 08/17/23 07/09/24 History atorvastatin 20 mg tablet 20 mg PO HS 08/17/23 07/09/24 History carvedilol 3.125 mg tablet 3.125 mg PO BID 08/17/23 07/09/24 History cholecalciferol (vitamin D3) 2,000 units PO DAILY 08/17/23 07/09/24 History insulin glargine 100 unit/mL (3 15 unit subcut HS 08/17/23 07/09/24 History mL) subcutaneous pen (Lantus Solostar U-100 Insulin) isosorbide mononitrate 60 mg 60 mg PO BID 08/17/23 07/09/24 History tablet,extended release 24 hr levetiracetam 500 mg tablet 500 mg PO BID 08/17/23 07/09/24 History melatonin 5 mg PO HS 08/17/23 07/09/24 History montelukast 10 mg tablet 10 mg PO HS 08/17/23 07/09/24 History pantoprazole 40 mg tablet,delayed 40 mg PO DAILY 08/17/23 07/09/24 History release pen needle, diabetic, safety 30 08/17/23 07/09/24 History gauge x 5/16 (Easy Touch Safety Pen Needle) pentoxifylline 400 mg 400 mg PO TID 08/17/23 07/09/24 History tablet,extended release tamsulosin 0.4 mg capsule 0.4 mg PO DAILY 08/17/23 07/09/24 History acetaminophen 325 mg tablet 650 mg PO Q6H PRN Pain (Scale 04/03/24 07/09/24 History (Tylenol) Score 1-3) escitalopram oxalate 10 mg tablet 10 mg PO DAILY 04/03/24 07/09/24 History (Lexapro) Allergies Allergy/AdvReac Type Severity Reaction Status Date / Time bacitracin Allergy Unknown Unknown Verified 07/09/24 02:48 gramicidin D Allergy Unknown Unknown Verified 07/09/24 02:48 neomycin Allergy Unknown Unknown Verified 07/09/24 02:48 polymyxin B Allergy Unknown Unknown Verified 07/09/24 02:48 Dairy Allergy Unknown Unknown Uncoded 07/09/24 02:48 Vital Signs Vital Signs - 24 hr 07/08/24 22:37 Temperature 97.5 F L Pulse Rate 67 Respiratory Rate 17 Blood Pressure 141/72 H Pulse Oximetry 100 Oxygen Delivery Room Air Exam Narrative: patient is laying in a stretcher Const: General: comfortable, no acute distress, well developed, ill appearing chronically and average body habitus Nutritional Appearance: average body habitus Orientation/consciousness: oriented to person and lethargic HENMT: Head: normal to inspection, normocephalic and atraumatic Ears: hearing grossly normal bilaterally Face/Nose/Sinus: normal facial exam Face and sinus: normal facial exam Other: bilateral blindness enophthalmus Eyes: General: appearance normal, both eyes and all related structures Pupils: Equal, round and reactive pupils present EOM: EOMs intact bilaterally Neck: Neck: full ROM, no lymphadenopathy and no JVD Thyroid: thyroid normal Lymphatic: no lymphadenopathy noted Resp: Effort & Inspection: normal respiratory effort and able to speak in complete sentences Auscultation: clear to auscultation bilaterally Cardio: Jugular venous distension: no JVD Rate: regular rate Rhythm: regular rhythm Heart sounds: S1 normal heart sound present and S2 normal heart sound present GI: GI Palp: Yes Soft to palpation and Yes No hepatosplenomegaly present : General: Yes deferred Skin: Rashes: no rashes Wounds: no wounds Neuro: General: oriented to person and CN's II-XI intact bilaterally Cranial nerves: Yes CN's II-XII intact bilaterally and Yes Equal, round and reactive pupils present Cognition (Neuro): abnormal cognition ( obtundation/lethargy) Speech: normal speech Gait exam (Neuro): Unable to assess gait Motor exam (neuro): 5/5 motor strength present throughout Extrem: General: normal to inspection, full ROM, no joint enlargement and no pedal edema Other: left BKA H&P: Results Labs Labs: Short CBC 07/08/24 Range/Units 23:26 WBC 17.5 H (4.5-10.0) K/mm3 Hgb 10.6 L (14.0-18.0) g/dL Hct 33.2 L (42.0-52.0) % Plt Count 247 D (150-375) k/mm3 BMP 07/08/24 23:26 Sodium 138 Potassium 3.9 Chloride 96 L Carbon Dioxide 34 H BUN 36 H Creatinine 7.40 H Glucose 152 H Calcium 8.6 Liver Function 07/08/24 Range/Units 23:26 Total Bilirubin 0.6 (0.2-1.3) mg/dL AST 19 (17-59) U/L ALT 9 (6-50) U/L Alkaline Phosphatase 113 (38-126) U/L Albumin 3.9 (3.5-5.1) g/dL Assessment and Plan Assessment and plan (1) Urinary tract infection: Qualifiers: Encounter type: initial encounter Indwelling urinary catheter type: indwelling urethral catheter Urinary tract infection type: catheter-associated UTI Qualified Code(s): T83.511A - Infection and inflammatory reaction due to indwelling urethral catheter, initial encounter; N39.0 - Urinary tract infection, site not specified Code(s): N39.0 - Urinary tract infection, site not specified Status: Acute Assessment and Plan: admit to regular medical floor started on antibiotic await cultures (2) ESRD on hemodialysis: Code(s): N18.6 - End stage renal disease; Z99.2 - Dependence on renal dialysis Status: Acute Assessment and Plan: continue hemodialysis nephrology consult (3) Weakness generalized: Code(s): R53.1 - Weakness Status: Acute Assessment and Plan: likely secondary to chronic illness (4) Type 2 diabetes mellitus: Code(s): E11.9 - Type 2 diabetes mellitus without complications Status: Chronic Assessment and Plan: insulin-dependent (5) Hx of left BKA: Code(s): Z89.512 - Acquired absence of left leg below knee Status: Acute Assessment and Plan: fall precautions (6) Blindness of both eyes: Code(s): H54.3 - Unqualified visual loss, both eyes Status: Acute Assessment and Plan: fall precautions needs assistance with ADLs and IADLs Hospitalist MIPS Advance Care Plan I have confirmed that the patient's Advanced Care Plan is present, code status is documented, or surrogate decision maker is listed in patient medical record.: Yes Medication Reconciliation I have utilized all available resources to obtain, update and review the patients current medications (includes all prescriptions, OTC, herbals, cannabis, and nutritional supplements).: Yes
--- NOTE | 2024-07-09 01:11 | PC.NURSE ---
rn depend change after bm
[2024-07-09 02:19] LABS: Add Urine Microscopic? YES; Appearance Urine Turbid (Clear); Bacteria Urine 4+ /hpf; Bilirubin Urine 2+ (Negative); Blood Urine 2+ (Negative); Color Urine Red (Yellow); Glucose Urine UA Negative (Negative); Ketones Urine Negative (Negative); Leukocyte Esterase Ur 3+ LEU/UL (Negative); Need Manual Microscopic Reviewed; Nitrate Urine Positive (Negative); Protein Urine 3+ mg/dL (Negative); RBC Urine >100 /hpf (0-2); Squamous Epithelial Cell Urine Occasional /hpf (Few); Urobilinogen Urine 0.2 mg/dL (<2.0); WBC Urine >100 /hpf (0-3); pH Urine 8.5 (5.0-9.0)
--- NOTE | 2024-07-09 02:29 | ADMGEN ---
This patient, Ja Griffith, was admitted to Medical Room 348-01. Patient/family oriented to hospital policies and general routines including ID bracelet, bed and alarms, visiting hours, pain management, procedures, bathroom and other care routines, personal items, smoking policy, room service/diet, and visiting hours. Information on how to activate the Rapid Response Team has been discussed. Patient/Family are encouraged to report perceived risks to care and to ask questions if they do not understand what they are told or what they should do.
--- NOTE | 2024-07-09 06:46 | P.PNIM_ITS ---
Progress Note: A&P Assessment and Plan (1) Abnormal finding on urinalysis: Code(s): R82.90 - Unspecified abnormal findings in urine Status: Acute Assessment and Plan: - UA: red in color with turbid appearance and 3+ protein, 2+ blood, positive nitrates, 2+ bili, 3+ leukocytes, > 100 RBC, > 100 WBC, 4+ bacteria. Occasional squamous cells which could indicate contamination. - UC obtained on 07/09: pending - no previous micro to be reviewed - started on Rocephin on 07/09 - Patient continues to have hematuria, KUB negative for kidney stones. (2) ESRD on hemodialysis: Code(s): N18.6 - End stage renal disease; Z99.2 - Dependence on renal dialysis Status: Acute Assessment and Plan: End-stage renal disease on hemodialysis Thursday. Patient missed his dialysis appointment on 07/08 due to be sick. - Nephrology was consulted for dialysis needs - Chest XR with no acute cardiopulmonary process - Anticipate dialysis later today - Renally dose medications - Patient has a Catherine catheter in place which appears to be chronic for unknown reason as he is end-stage renal disease requiring dialysis. (3) C. difficile colitis: Code(s): A04.72 - Enterocolitis due to Clostridium difficile, not specified as recurrent Status: Acute Assessment and Plan: - C dif postive 07/09 - Fecal occult positive. H/H appears at baseline. Iron panel, B12 and folate ordered. - Started on Dificid 07/09 - CT abdomen/pelvis ordered - Isolate precautions - Monitor vital signs, I&Os, track stool output, watch for bloody stools, neuro status and patient is a fall risk - Monitor serum electrolytes and CBC (4) Type 2 diabetes mellitus: Code(s): E11.9 - Type 2 diabetes mellitus without complications Status: Chronic Assessment and Plan: - hypoglycemia protocol - POC blood glucose ACHS - home medication - lantus 15 units - correct regimen ordered - lantus 15 units - A1C 6.7 on 04/02/24 (5) Hypertension: Code(s): I10 - Essential (primary) hypertension Status: Chronic Assessment and Plan: Chronic, well controlled on home medications. - amlodipine 5 mg daily - carvedilol 3.125 mg BID - imdur 60 mg BID - monitor (6) Atrial fibrillation: Code(s): I48.91 - Unspecified atrial fibrillation Status: Acute Assessment and Plan: Chronic, rate controlled and on anticoagulation. - Eliquis 2.5 mg BID - carvedilol 3.125 mg BID - Monitor (7) History of seizure: Code(s): Z87.898 - Personal history of other specified conditions Status: Acute Assessment and Plan: Chronic, continue home Keppra 500 mg BID. Time Spent With Patient Time with patient: 25 - 35 minutes Subjective Date/time seen: 07/09/24 06:46 Interval history: 64-year-old male with past medical history significant for end-stage renal disease on hemodialysis MWF, legal blindness, left BKA, insulin-dependent diabetes mellitus, diabetic nephropathy, atrial fibrillation (rate controlled and anticoagulated), peripheral vascular disease, BPH, and history of stroke presents to the hospital for hematruia. Patient is lying in bed. He remains AOx2. He states that he missed dialysis due to being sick and only missed thursday. He complains of generalized abdominal pain. He will not go into further detail in regards to the pain. He denies nausea/vomiting. He has a chronic catherine catheter in place, unknown duration. Patient does not know about duration either or reason for placement. His continues to have diarrhea and was noted to be c diff postive, started on dificid. He denies chest pain, shortness of breath, and palpitations. Review of Systems Review of Systems: All systems reviewed & are unremarkable except as noted in HPI and below Exam Narrative: AF HR 91 RR 20 SpO2 98 BP 115/52 General: male in no acute respiratory distress who is nontoxic appearing, lying semi recumbent in bed. HEENT: No facial asymmetry. Chest: Lungs are clear to auscultation bilaterally. No wheezes or crackles. CV: Heart was regular rate and rhythm. S1/S2. No murmurs, gallops, or rubs. Abd: Abdomen was soft. Nontender. Nondistended. Positive bowel sounds. No organomegaly or masses. Ext: No clubbing, cyanosis, or edema. 2+ DP pulses bilaterally. Neuro: Patient is alert and oriented x2. Speech is clear. Fistula to the right upper extremity. Objective Data Vital Signs Vital Signs: Vital Signs - 24 hr 07/08/24 22:37 07/08/24 22:44 07/08/24 22:45 Temperature 97.5 F L Pulse Rate 67 62 59 L Respiratory Rate 17 18 16 Blood Pressure 141/72 H Pulse Oximetry 100 96 100 Oxygen Delivery Room Air 07/08/24 22:46 07/08/24 23:00 07/08/24 23:16 Temperature Pulse Rate 63 62 55 L Respiratory Rate 17 19 21 H Blood Pressure 139/68 131/70 Pulse Oximetry 98 97 94 Oxygen Delivery 07/08/24 23:17 07/08/24 23:31 07/08/24 23:32 Temperature Pulse Rate 60 61 61 Respiratory Rate 19 20 12 Blood Pressure 125/64 Pulse Oximetry 93 96 97 Oxygen Delivery 07/08/24 23:45 07/08/24 23:46 07/09/24 00:14 Temperature Pulse Rate 51 L 56 L 54 L Respiratory Rate 17 18 16 Blood Pressure 119/62 Pulse Oximetry 99 97 98 Oxygen Delivery 07/09/24 00:15 07/09/24 00:16 07/09/24 00:30 Temperature Pulse Rate 53 L 58 L 57 L Respiratory Rate 16 15 30 H Blood Pressure 111/64 Pulse Oximetry 97 97 94 Oxygen Delivery 07/09/24 00:50 07/09/24 01:15 07/09/24 01:30 Temperature Pulse Rate 56 L 57 L 52 L Respiratory Rate 17 19 16 Blood Pressure Pulse Oximetry 99 Oxygen Delivery 07/09/24 01:31 07/09/24 05:24 Temperature 97.3 F L Pulse Rate 53 L 91 Respiratory Rate 18 20 Blood Pressure 112/61 115/52 L Pulse Oximetry 98 Oxygen Delivery Intake/Output Intake/Output: Intake & Output 07/06/24 07/07/24 07/08/24 07/09/24 23:59 23:59 23:59 23:59 Intake Total 100 Output Total 50 Balance 50 Meds/Results Medications: Active Medications Generic Name Dose Route Start Last Admin Trade Name Freq PRN Reason Stop Dose Admin Acetaminophen 650 mg 07/09/24 06:30 Acetaminophen 325 Mg Tablet PO Q6H PRN Pain (Scale Score 1-3) Amlodipine Besylate 5 mg 07/09/24 09:00 Amlodipine Besylate 5 Mg Tablet PO DAILY REPLACED BY [facility] Apixaban 2.5 mg 07/09/24 09:00 Apixaban 2.5 Mg Tablet PO BID REPLACED BY [facility] Atorvastatin Calcium 20 mg 07/09/24 21:00 Atorvastatin 20 Mg Tablet PO HS REPLACED BY [facility] Carvedilol 3.125 mg 07/09/24 09:00 Carvedilol 3.125 Mg Tablet PO BID REPLACED BY [facility] Escitalopram Oxalate 10 mg 07/09/24 09:00 Escitalopram Oxalate 10 Mg Tablet PO DAILY REPLACED BY [facility] Insulin Glargine 15 units 07/09/24 21:00 Insulin Glargine (*Bkc) 100 Units/Ml SUB-Q HS REPLACED BY [facility] Isosorbide Mononitrate 60 mg 07/09/24 09:00 Isosorbide Mononitrate 60 Mg Tab.Er.24h PO BID REPLACED BY [facility] Levetiracetam 500 mg 07/09/24 09:00 Levetiracetam 500 Mg Tablet PO BID REPLACED BY [facility] Montelukast Sodium 10 mg 07/09/24 21:00 Montelukast Sodium 10 Mg Tablet PO HS REPLACED BY [facility] Non-Formulary Medication 81 mg 07/09/24 09:00 Aspirin PO 08/08/24 08:59 DAILY REPLACED BY [facility] Non-Formulary Medication 5 mg 07/09/24 21:00 Melatonin PO 08/08/24 20:59 HS REPLACED BY [facility] Non-Formulary Medication 750 mg 07/09/24 21:00 Tums PO 08/08/24 20:59 HS REPLACED BY [facility] Pantoprazole Sodium 40 mg 07/09/24 09:00 Pantoprazole 40 Mg Tablet PO DAILY REPLACED BY [facility] Pentoxifylline 400 mg 07/09/24 09:00 Pentoxifylline 400 Mg Tabcr PO TID REPLACED BY [facility] Tamsulosin HCl 0.4 mg 07/09/24 09:00 Tamsulosin Hcl 0.4 Mg Capsule PO DAILY REPLACED BY [facility] Labs Labs: Laboratory Results - last 24 hr 07/08/24 07/09/24 23:26 01:34 WBC 17.5 H RBC 3.43 L Hgb 10.6 L Hct 33.2 L MCV 96.8 MCH 30.9 MCHC 31.9 L RDW 14.8 H Plt Count 247 D MPV 9.1 Immature Gran % (Auto) 0.6 H Neut % (Auto) 90.8 H Lymph % (Auto) 4.5 L [place] % (Auto) 3.9 Eos % (Auto) 0.0 Baso % (Auto) 0.2 Lymph # (Auto) 0.78 L [place] # (Auto) 0.7 H Eos # (Auto) 0.0 Baso # (Auto) 0.0 Abs Immat Gran (auto) 0.11 H Absolute Neuts (auto) 15.9 H Absolute Nucleated RBC 0.000 Nucleated RBC % 0.0 Sodium 138 Potassium 3.9 Chloride 96 L Carbon Dioxide 34 H Anion Gap 8 BUN 36 H Creatinine 7.40 H Estim Creat Clear Calc Not Reportable Estimated GFR 8 L Glucose 152 H Calcium 8.6 Total Bilirubin 0.6 AST 19 ALT 9 Alkaline Phosphatase 113 Total Protein 8.0 Albumin 3.9 Urine Color Red H Urine Appearance Turbid H Urine pH 8.5 Ur Specific [place] 1.020 Urine Protein 3+ H Urine Glucose (UA) Negative Urine Ketones Negative Ur Blood (Man) 2+ H Urine Nitrate Positive H Urine Bilirubin 2+ H Urine Urobilinogen 0.2 Add Ur Microanalysis Reviewed Leukocyte Esterase Rfl 3+ H Urine RBC >100 H Urine WBC >100 H Ur Squamous Epith Cells Occasional Urine Bacteria 4+ H Urine Casts 3-5 Quality VTE Prophylaxis VTE prophylaxis: pharmacologic ordered
[2024-07-09 07:27] LABS: Basophils Percent Auto 0.3 % (0.2-1.2); Eosinophils Absolute Auto 0.1 K/mm3 (0-0.3); Eosinophils Percent Auto 0.5 % (0-4.4); Hematocrit 30.2 % (42.0-52.0); Hemoglobin 9.2 g/dL (14.0-18.0); Immature Granulocyte Absolute 0.06 K/mm3 (0.00-0.031); Immature Granulocyte Percent A 0.4 % (0-0.5); Lymphocytes Absolute Auto 1.88 K/mm3 (0.9-3.2); Lymphocytes Percent Auto 13.8 % (18.3-44.2); Mean Corpuscular HGB Conc 30.5 g/dl (32-36); Mean Corpuscular Volume 98.4 fl (80-100); Monocytes Percent Auto 7.3 % (2.6-8.5); Neutrophils Absolute Auto 10.6 K/mm3 (1.3-6.7); Neutrophils Percent Auto 77.7 % (45.5-73.1); Platelet Count Result 222 k/mm3 (150-375); Red Blood Count 3.07 M/mm3 (4.6-6.20); Red Cell Distribution Width 14.7 % (11.5-14.5); White Blood Count 13.6 K/mm3 (4.5-10.0)
[2024-07-09 07:33] LABS: MRSA (PCR) DETECTED (NOT DETECTE)
[2024-07-09 07:38] LABS: IFOB Positive Control Positive; Immunochemical Fecal Occult Bl Positive (N)
[2024-07-09 07:43] LABS: Alanine Aminotransferase 7 U/L (6-50); Albumin Level 3.2 g/dL (3.5-5.1); Alkaline Phosphatase 99 U/L (38-126); Anion Gap 5 mmol/L (4-12); Aspartate Amino Transferase 16 U/L (17-59); Bilirubin,Total 0.6 mg/dL (0.2-1.3); Blood Urea Nitrogen 38 mg/dL (9-20); Calcium 8.2 mg/dL (8.4-10.2); Carbon Dioxide 34 mmol/L (22-30); Chloride 98 mmol/L (98-107); Estimated CRCL calculation 9 ml/min; Estimated Glomerular Filt Rate 7; Glucose 72 mg/dL (65-110); Potassium 3.5 mmol/L (3.4-5.0); Sodium 137 mmol/L (137-145)
[2024-07-09 08:14] LABS: Toxigenic C. Diff POSITIVE (NEGATIVE)
[2024-07-09 08:33] LABS: Glucose Point of Care 62 mg/dl (65-105)
[2024-07-09 09:00] LABS: Iron 32 ug/dL (49-181)
[2024-07-09 09:03] LABS: Glucose Point of Care 58 mg/dl (65-105)
[2024-07-09 09:11] LABS: Percent Iron Saturation 17 % (20-50)
[2024-07-09] MEDS: ESCITALOPRAM OXALATE 10 MG TABLET PO (09:17)
[2024-07-09] MEDS: ASPIRIN 81 MG CHEWABLE TABLET PO (09:18)
[2024-07-09] MEDS: TAMSULOSIN HCL 0.4 MG CAPSULE PO (09:18)
[2024-07-09] MEDS: amLODIPine BESYLATE 5 MG TABLET PO (09:19)
[2024-07-09] MEDS: levETIRAcetam 500 MG TABLET PO ×2 (09:19→17:53)
[2024-07-09] MEDS: carvediloL 3.125 MG TABLET PO ×2 (09:20→17:54)
[2024-07-09] MEDS: DEXTROSE 50% 25 GM/50 ML SYRINGE IV PUSH (09:22)
[2024-07-09] MEDS: PANTOPRAZOLE 40 MG TABLET PO (09:22)
[2024-07-09] MEDS: APIXABAN 2.5 MG TABLET PO (09:22)
[2024-07-09] MEDS: FIDAXOMICIN 200 MG TABLET PO (09:23)
[2024-07-09] MEDS: ISOSORBIDE MONONITRATE 60 MG TAB.ER.24H PO ×2 (09:24→17:53)
[2024-07-09 09:47] LABS: Glucose Point of Care 125 mg/dl (65-105)
[2024-07-09 09:52] LABS: Folic Acid 11.1 ng/mL (2.76->20)
[2024-07-09] MEDS: PENTOXIFYLLINE 400 MG TABCR PO ×3 (11:01→17:54)
[2024-07-09 12:02] LABS: Hepatitis B Surface Antigen Negative (Negative)
[2024-07-09 12:13] LABS: Glucose Point of Care 97 mg/dl (65-105)
[2024-07-09 12:22] LABS: Hepatitis B Surface Anti Res Positive
--- NOTE | 2024-07-09 14:20 | P.CONNP_ITS ---
Assessment and Plan Assessment and plan (1) End stage renal disease: Code(s): N18.6 - End stage renal disease Status: Chronic Assessment and Plan: * plan short HD treatment today since missed treatment on Thursday * continue/resume Thursday, Thursday, Thursday dialysis schedule next week * follow electrolytes, clearance, and volume status (2) C. difficile colitis: Code(s): A04.72 - Enterocolitis due to Clostridium difficile, not specified as recurrent Status: Acute Assessment and Plan: * noted diarrhea on admission with abdominal pain * C. diff toxin assay positive (and was positive on last hospitalization as well) * CT scan pending * on isolation * on dificid therapy (3) Urinary tract infection: Qualifiers: Encounter type: initial encounter Indwelling urinary catheter type: indwelling urethral catheter Urinary tract infection type: catheter-associated UTI Qualified Code(s): T83.511A - Infection and inflammatory reaction due to indwelling urethral catheter, initial encounter; N39.0 - Urinary tract infection, site not specified Code(s): N39.0 - Urinary tract infection, site not specified Status: Acute Assessment and Plan: * admission UA suggestive (but patient with chronic catherine) * apparently, has catherine cathter due to neurogenic bladder along with the fact he still make urine * foely catheter was removed on last admission (but likely replaced at nursing facility) * catherine catheter exchange in ER * follow urine culture results * on antibiotics (4) Hypertension: Code(s): I10 - Essential (primary) hypertension Status: Chronic Assessment and Plan: * reasonable control * follow trend of hemodynamics (5) Weakness generalized: Code(s): R53.1 - Weakness Status: Acute Assessment and Plan: * suspect related to deconditioning and acute infection/illness * continue supportive therapy (6) Type 2 diabetes mellitus: Code(s): E11.9 - Type 2 diabetes mellitus without complications Status: Chronic Assessment and Plan: * follow accu-cheks * glycemic control per hospitalists I will continue follow the patient with you remains hospitalized and make recommendations as needed. Thank you for allowing me to participate in the care this patient. History of Present Illness Reason for Consult Consult date: 07/09/24 Reason for consult: end stage renal disease Chief Complaint Chief complaint: Urinary tract infection History of Present Illness Narrative: The patient is a 64-year-old male with extensive past medical history as outlined below who presented to [facility] Emergency Room for further evaluation of hematuria. The patient is a resident of a [facility] and apparently, the nursing staff noted that he been having significant amounts of hematuria in his Catherine bag. Unfortunately, it is difficult to ascertain how long this has been going on as no information was provided to the ER staff from the nursing facility regarding this symptom. He does have a chronic Catherine catheter in place despite the fact that he is on renal replacement therapy / dialysis presumably due to his history of a neurogenic bladder. Workup and evaluation emergency room demonstrated gross hematuria in his Catherine bag. His Catherine catheter was exchanged and prelim material was noted during this process. Routine blood test demonstrated a CBC within of elevated white blood cell count and a chemistry that was consistent with his known history of end- stage renal disease. As his urinalysis was highly suggestive of a possible urinary tract infection, appropriate cultures were obtained and he was started on empiric antibiotic therapy. He was subsequent admitted to the hospital for further evaluation and therapy.t. Renal consultation was requested due to his end-stage renal disease. The patient normally dialyzes on a Thursday, Thursday, Thursday dialysis schedule at [facility] under the care of Dr. Morrissey. As already mentioned, he missed his scheduled dialysis treatment on Thursday at his outpatient dialysis unit for unclear reasons. However, he does not gain much fluid between dialysis treatments and usually has relative stability in his electrolytes as well. Hao pite missing his dialysis treatment yesterday, his volume status and electrolytes are under reasonable control. Currently, at the time my evaluation, he is not appear to be in acute distress. Review of Systems Review of Systems: As per HPI. [facility] Past Medical History Medical History ESRD on hemodialysis Hypertension Family History Family History (Updated 07/09/24 @ 02:36 by Zhane Perez RN) Other Unknown family medical history Social History Social History Smoking status: Never smoker Alcohol intake: never Substance use: never Substance use type: crack/cocaine Last use: 2012 Do You Feel Safe in your Home?: Yes Lack of Transportation: No Lack of Food: Never True Current Housing: I Have Housing Concerned About Future Housing: No Difficulty Paying Gas/Electric Bills: No Difficulty Paying for Meds: No Currently Unemployed: No Education: High School Diploma/GED Difficulty w/ Childcare or Family Care: No Spiritual care concerns: No Meds Home Medications and Allergies Home Medications Medication Instructions Recorded Confirmed Type Tums 750 mg PO HS 08/17/23 07/09/24 History amlodipine 10 mg tablet 5 mg PO DAILY 08/17/23 07/09/24 History apixaban 2.5 mg tablet (Eliquis) 2.5 mg PO BID 08/17/23 07/09/24 History aspirin 81 mg PO DAILY 08/17/23 07/09/24 History atorvastatin 20 mg tablet 20 mg PO HS 08/17/23 07/09/24 History carvedilol 3.125 mg tablet 3.125 mg PO BID 08/17/23 07/09/24 History cholecalciferol (vitamin D3) 2,000 units PO DAILY 08/17/23 07/09/24 History isosorbide mononitrate 60 mg 60 mg PO BID 08/17/23 07/09/24 History tablet,extended release 24 hr levetiracetam 500 mg tablet 500 mg PO BID 08/17/23 07/09/24 History melatonin 5 mg PO HS 08/17/23 07/09/24 History montelukast 10 mg tablet 10 mg PO HS 08/17/23 07/09/24 History pantoprazole 40 mg tablet,delayed 40 mg PO DAILY 08/17/23 07/09/24 History release pen needle, diabetic, safety 30 08/17/23 07/09/24 History gauge x 5/16 (Easy Touch Safety Pen Needle) pentoxifylline 400 mg 400 mg PO TID 08/17/23 07/09/24 History tablet,extended release tamsulosin 0.4 mg capsule 0.4 mg PO DAILY 08/17/23 07/09/24 History acetaminophen 325 mg tablet 650 mg PO Q6H PRN Pain (Scale 04/03/24 07/09/24 History (Tylenol) Score 1-3) escitalopram oxalate 10 mg tablet 10 mg PO DAILY 04/03/24 07/09/24 History (Lexapro) ferrous sulfate 325 mg (65 mg 325 mg PO DAILY #30 tabs 07/12/24 Rx iron) tablet,delayed release fidaxomicin 200 mg tablet (Dificid) 200 mg PO Q12HR #14 tabs 07/12/24 Rx insulin glargine 100 unit/mL (3 12 unit (0.12 mL) subcut HS #3 mL 07/12/24 07/09/24 Rx mL) subcutaneous pen (Lantus Solostar U-100 Insulin) Allergies Allergy/AdvReac Type Severity Reaction Status Date / Time bacitracin Allergy Unknown Unknown Verified 07/09/24 02:48 gramicidin D Allergy Unknown Unknown Verified 07/09/24 02:48 neomycin Allergy Unknown Unknown Verified 07/09/24 02:48 polymyxin B Allergy Unknown Unknown Verified 07/09/24 02:48 Dairy Allergy Unknown Unknown Uncoded 07/09/24 02:48 Vital Signs Vital Signs Temp Pulse Resp BP Pulse Ox O2 Del Method 07/09/24 13:56 97.1 F L 66 18 125/44 L 100 07/09/24 09:20 72 07/09/24 05:24 97.3 F L 91 20 115/52 L 98 07/09/24 01:31 53 L 18 112/61 07/09/24 01:30 52 L 16 07/09/24 01:15 57 L 19 99 07/09/24 00:50 56 L 17 07/09/24 00:30 57 L 30 H 94 07/09/24 00:16 58 L 15 111/64 97 07/09/24 00:15 53 L 16 97 07/09/24 00:14 54 L 16 98 07/08/24 23:46 56 L 18 119/62 97 07/08/24 23:45 51 L 17 99 07/08/24 23:32 61 12 97 07/08/24 23:31 61 20 125/64 96 07/08/24 23:17 60 19 93 07/08/24 23:16 55 L 21 H 131/70 94 07/08/24 23:00 62 19 97 07/08/24 22:46 63 17 139/68 98 07/08/24 22:45 59 L 16 100 07/08/24 22:44 62 18 96 07/08/24 22:37 97.5 F L 67 17 141/72 H 100 Room Air Exam Narrative: GENERAL APPEARANCE: elderly male in no acute distress HEENT: normocephalic, atraumatic, normal conjunctiva and sclera, nares patient NECK: no lymphadenopathy, thyromegaly, or JVD MOUTH: normal lips, teeth, and gums CARDIOVASCULAR: RRR, normal S1 and S2, no rub RESPIRATORY: clear to auscultation bilaterally ABDOMEN: soft, nontender, nondistended, positive bowel sounds present EXTREMITIES: no evidence of cyanosis, clubbing, or edema; s/p left BKA NEUROLOGICAL: awake and alert; CN II - XII intact bilaterally; no focal deficits noted Results Lab Results 07/12/24 05:23 07/12/24 05:23 Lab results: Most recent lab results Calcium 8.2 mg/dL (8.4-10.2) L 07/09/24 07:19
[2024-07-09 17:30] LABS: Glucose Point of Care 74 mg/dl (65-105)
--- NOTE | 2024-07-09 18:41 | PC.NURSE ---
On 07/09/24, the student, Anjali Damon, provided care and completed [facility] documentation on this patient. I have reviewed the student's documentation and agree with the findings.
--- NOTE | 2024-07-09 19:35 | PC.NURSE ---
Call out to patient's brother Dayton at [phone] to obtain consent for patient to participate in dialysis. There was no answer so a voice message was left. Await call back.
--- NOTE | 2024-07-09 21:30 | PC.NURSE ---
Verbal consent for dialysis treatment received from patient's brother, Dayton. Patient transferred to dialysis via bed at this time.
[2024-07-10] VITALS (10 sets, daily range): BP systolic 137–165; BP diastolic 55–79; PULSE 50–71; RESP 18–20; TEMP 36.2–36.9; O2SAT 96–99
[2024-07-10] MEDS: MELATONIN 5 MG TABLET PO ×2 (01:22→20:46)
[2024-07-10] MEDS: CALCIUM CARBONATE (TUMS) 500 MG (200 MG ELEMENTAL) BY MOUTH ×2 (01:22→20:45)
[2024-07-10] MEDS: MONTELUKAST SODIUM 10 MG TABLET PO ×2 (01:22→20:46)
[2024-07-10] MEDS: INSULIN GLARGINE (*BKC) 100 UNITS/ML 12 UNITS SUB-Q ×2 (01:23→20:46)
[2024-07-10] MEDS: FIDAXOMICIN 200 MG TABLET PO ×3 (01:23→20:45)
[2024-07-10] MEDS: ATORVASTATIN 20 MG TABLET PO ×2 (01:23→20:45)
[2024-07-10 01:28] LABS: Glucose Point of Care 152 mg/dl (65-105)
--- NOTE | 2024-07-10 01:43 | PC.NURSE ---
Patient returned to room from HD. All evening meds given at this time.
[2024-07-10 05:42] LABS: Basophils Absolute Auto 0.1 K/mm3 (0.0-0.1); Basophils Percent Auto 0.5 % (0.2-1.2); Eosinophils Absolute Auto 0.3 K/mm3 (0-0.3); Eosinophils Percent Auto 2.8 % (0-4.4); Hematocrit 28.9 % (42.0-52.0); Hemoglobin 8.8 g/dL (14.0-18.0); Immature Granulocyte Absolute 0.06 K/mm3 (0.00-0.031); Immature Granulocyte Percent A 0.6 % (0-0.5); Lymphocytes Absolute Auto 1.29 K/mm3 (0.9-3.2); Lymphocytes Percent Auto 13.9 % (18.3-44.2); Mean Corpuscular HGB Conc 30.4 g/dl (32-36); Mean Corpuscular Volume 98.6 fl (80-100); Mean Platelet Volume 8.4 fl (7.4-10.4); Monocytes Absolute Auto 0.6 K/mm3 (0.1-0.6); Monocytes Percent Auto 5.9 % (2.6-8.5); Neutrophils Absolute Auto 7.1 K/mm3 (1.3-6.7); Neutrophils Percent Auto 76.3 % (45.5-73.1); Platelet Count Result 197 k/mm3 (150-375); Red Blood Count 2.93 M/mm3 (4.6-6.20); Red Cell Distribution Width 14.6 % (11.5-14.5); White Blood Count 9.3 K/mm3 (4.5-10.0)
[2024-07-10 05:56] LABS: Alanine Aminotransferase 7 U/L (6-50); Alkaline Phosphatase 93 U/L (38-126); Anion Gap 4 mmol/L (4-12); Aspartate Amino Transferase 15 U/L (17-59); Bilirubin,Total 0.4 mg/dL (0.2-1.3); Blood Urea Nitrogen 17 mg/dL (9-20); Calcium 8.6 mg/dL (8.4-10.2); Carbon Dioxide 30 mmol/L (22-30); Chloride 104 mmol/L (98-107); Estimated CRCL calculation 15 ml/min; Estimated Glomerular Filt Rate 13; Glucose 127 mg/dL (65-110); Potassium 3.8 mmol/L (3.4-5.0); Sodium 138 mmol/L (137-145)
--- NOTE | 2024-07-10 08:35 | P.PNIM_ITS ---
Progress Note: A&P Assessment and Plan (1) Abnormal finding on urinalysis: Code(s): R82.90 - Unspecified abnormal findings in urine Status: Acute Assessment and Plan: - UA: red in color with turbid appearance and 3+ protein, 2+ blood, positive nitrates, 2+ bili, 3+ leukocytes, > 100 RBC, > 100 WBC, 4+ bacteria. Occasional squamous cells which could indicate contamination. - UC obtained on 07/09: pending - no previous micro to be reviewed - started on Rocephin on 07/09 - Patient continues to have hematuria, KUB negative for kidney stones. Holding eliquis at this time. SCDs in place. 07/10/2024: Hematuria improving, will continue to hold eliquis and likely resume tomorrow. (2) ESRD on hemodialysis: Code(s): N18.6 - End stage renal disease; Z99.2 - Dependence on renal dialysis Status: Acute Assessment and Plan: End-stage renal disease on hemodialysis Thursday. Patient missed his dialysis appointment on 07/08 due to be sick. - Nephrology was consulted for dialysis needs - Chest XR with no acute cardiopulmonary process - Received short dialysis treatment on 07/09, will resume thu/thu/thu schedule - Renally dose medications - Patient has a Fournier catheter in place which appears to be chronic for unknown reason as he is end-stage renal disease requiring dialysis. This was removed last admission, but was likely replaced at nursing facility. Exchanged in the ED. (3) C. difficile colitis: Code(s): A04.72 - Enterocolitis due to Clostridium difficile, not specified as recurrent Status: Acute Assessment and Plan: - C dif postive 07/09 - Fecal occult positive. H/H appears at baseline. Iron panel, B12 and folate ordered. - Started on Dificid 07/09 - CT abdomen/pelvis: Cholelithiasis.No evidence of appendicitis, diverticulitis or intestinal obstruction. No definite kidney stones. - Isolate precautions - Monitor vital signs, I&Os, track stool output, watch for bloody stools, neuro status and patient is a fall risk - Monitor serum electrolytes and CBC (4) Iron deficiency anemia: Code(s): D50.9 - Iron deficiency anemia, unspecified Status: Acute Assessment and Plan: - Fecal occult positive likely secondary to ongoing cdif infection. H/H appears at baseline. - Iron panel: iron 32, TIBC 183, % sat 17 - B12 and folate WNL - Started on iron supplementation (5) Type 2 diabetes mellitus: Code(s): E11.9 - Type 2 diabetes mellitus without complications Status: Chronic Assessment and Plan: - hypoglycemia protocol - POC blood glucose ACHS - home medication - lantus 15 units - correct regimen ordered - lantus 12 units (decreased by 20% during admission) - A1C 6.7 on 04/02/24 (6) Hypertension: Code(s): I10 - Essential (primary) hypertension Status: Chronic Assessment and Plan: Chronic, well controlled on home medications. - amlodipine 5 mg daily - carvedilol 3.125 mg BID - imdur 60 mg BID - monitor (7) Atrial fibrillation: Code(s): I48.91 - Unspecified atrial fibrillation Status: Acute Assessment and Plan: Chronic, rate controlled and on anticoagulation. - Eliquis 2.5 mg BID, on hold for hematuria. Likely to resume tomorrow. - carvedilol 3.125 mg BID - Monitor (8) History of seizure: Code(s): Z87.898 - Personal history of other specified conditions Status: Acute Assessment and Plan: Chronic, continue home Keppra 500 mg BID. Time Spent With Patient Time with patient: 25 - 35 minutes Subjective Date/time seen: 07/10/24 08:35 Interval history: 64-year-old male with past medical history significant for end-stage renal disease on hemodialysis MWF, legal blindness, left BKA, insulin-dependent diabetes mellitus, diabetic nephropathy, atrial fibrillation (rate controlled and anticoagulated), peripheral vascular disease, BPH, and history of stroke presents to the hospital for hematuria. Patient is pleasant lying comfortably in bed. He continues to have diarrhea but per RN this has improved since yesterday. He denies abdominal pain, nausea and vomiting. Hematuria improving, will continue to hold eliquis and likely resume tomorrow. Patient denies chest pain, shortness of breath, and palpitations. Review of Systems Review of Systems: All systems reviewed & are unremarkable except as noted in HPI and below Exam Narrative: AF RR 70 RR 20 SpO2 99 BP 147/69 General: male in no acute respiratory distress who is nontoxic appearing, lying semi recumbent in bed. HEENT: No facial asymmetry. Blind. Chest: Lungs are clear to auscultation bilaterally. No wheezes or crackles. CV: Heart was regular rate and rhythm. S1/S2. No murmurs, gallops, or rubs. Abd: Abdomen was soft. Nontender. Nondistended. Positive bowel sounds. No organomegaly or masses. Ext: No clubbing, cyanosis, or edema. 2+ DP pulses bilaterally. Neuro: Patient is alert and oriented x2. Speech is clear. Fistula to the right upper extremity. Objective Data Vital Signs Vital Signs: Vital Signs - 24 hr 07/09/24 09:20 07/09/24 15:56 07/09/24 17:54 Temperature 97.1 F L Pulse Rate 72 66 60 Respiratory Rate 18 Blood Pressure 125/44 L Pulse Oximetry 100 Oxygen Delivery Fraction of Inspired Oxygen 07/09/24 21:39 07/09/24 21:54 07/09/24 22:30 Temperature 98.8 F Pulse Rate 73 74 60 Respiratory Rate 18 Blood Pressure 136/65 140/69 151/68 H Pulse Oximetry 98 Oxygen Delivery Fraction of Inspired Oxygen 07/09/24 22:45 07/09/24 23:00 07/09/24 23:15 Temperature Pulse Rate 69 69 70 Respiratory Rate Blood Pressure 163/82 H 158/88 H 160/76 H Pulse Oximetry Oxygen Delivery Fraction of Inspired Oxygen 07/09/24 23:30 07/09/24 23:45 07/10/24 00:00 Temperature Pulse Rate 72 70 68 Respiratory Rate Blood Pressure 161/78 H 156/77 H 164/79 H Pulse Oximetry Oxygen Delivery Fraction of Inspired Oxygen 07/10/24 00:15 07/09/24 22:00 07/09/24 22:15 Temperature Pulse Rate 71 66 68 Respiratory Rate Blood Pressure 148/77 H 151/68 H 144/70 H Pulse Oximetry Oxygen Delivery Fraction of Inspired Oxygen 07/09/24 20:00 07/09/24 22:00 07/10/24 00:27 Temperature 97.5 F L Pulse Rate 68 71 Respiratory Rate 20 Blood Pressure 129/58 L 165/76 H Pulse Oximetry 100 Oxygen Delivery Room Air Fraction of Inspired Oxygen 07/10/24 00:31 07/10/24 05:38 07/10/24 07:57 Temperature 98.4 F 97.1 F L Pulse Rate 71 70 Respiratory Rate 18 20 Blood Pressure 165/76 H 147/69 H Pulse Oximetry 96 99 97 Oxygen Delivery Room Air Fraction of Inspired Oxygen 21 Intake/Output Intake/Output: Intake & Output 07/07/24 07/08/24 07/09/24 07/10/24 23:59 23:59 23:59 23:59 Intake Total 910 500 Output Total 200 150 Balance 710 350 Meds/Results Medications: Active Medications Generic Name Dose Route Start Last Admin Trade Name Freq PRN Reason Stop Dose Admin Acetaminophen 650 mg 07/09/24 06:30 Acetaminophen 325 Mg Tablet PO Q6H PRN Pain (Scale Score 1-3) Amlodipine Besylate 5 mg 07/09/24 09:00 07/09/24 09:19 Amlodipine Besylate 5 Mg Tablet PO 5 mg DAILY MATT Administration Apixaban 2.5 mg 07/09/24 09:00 07/09/24 09:22 Apixaban 2.5 Mg Tablet PO 2.5 mg BID MATT Administration Aspirin 81 mg 07/09/24 08:00 07/09/24 09:18 Aspirin 81 Mg Chewable Tablet PO 81 mg DAILY@0800 MATT Administration Atorvastatin Calcium 20 mg 07/09/24 21:00 07/10/24 01:23 Atorvastatin 20 Mg Tablet PO 20 mg HS MATT Administration Calcium Carbonate 200 mg 07/09/24 21:00 07/10/24 01:22 Calcium Carbonate (Tums) 500 Mg (200 Mg Elemental) BY MOUTH 200 mg HS MATT Administration Carvedilol 3.125 mg 07/09/24 09:00 07/09/24 17:54 Carvedilol 3.125 Mg Tablet PO 3.125 mg BID MATT Administration Dextrose 12.5 gm 07/09/24 07:02 07/09/24 09:22 Dextrose 50% 25 Gm/50 Ml Syringe IV PUSH 12.5 gm PRN PRN Administration Hypoglycemia Protocol Escitalopram Oxalate 10 mg 07/09/24 09:00 07/09/24 09:17 Escitalopram Oxalate 10 Mg Tablet PO 10 mg DAILY MATT Administration Fidaxomicin 200 mg 07/09/24 09:00 07/10/24 01:23 Fidaxomicin 200 Mg Tablet PO 07/19/24 21:00 200 mg Q12HR MATT Administration Glucagon 1 mg 07/09/24 07:02 Glucagon For Inj 1 Mg Vial IM PRN PRN Hypoglycemia Protocol Glucose 15 gm 07/09/24 07:02 Glucose Oral Gel 15 Gm Of Glucse In 37.5 Gm Tube PO PRN PRN Hypoglycemia Protocol Dextrose 1,000 mls @ 100 mls/hr 07/09/24 07:02 Dextrose 5% 1,000 Ml IVPB PRN PRN Hypoglycemia Protocol Albumin Human 50 mls @ 999 mls/hr 07/09/24 17:28 Albutein IVPB 08/08/24 17:27 Q10M PRN HYPOTENSION Insulin Glargine 12 units 07/09/24 21:00 07/10/24 01:23 Insulin Glargine (*Bkc) 100 Units/Ml SUB-Q 12 units HS MATT Administration Isosorbide Mononitrate 60 mg 07/09/24 09:00 07/09/24 17:53 Isosorbide Mononitrate 60 Mg Tab.Er.24h PO 60 mg BID MATT Administration Levetiracetam 500 mg 07/09/24 09:00 07/09/24 17:53 Levetiracetam 500 Mg Tablet PO 500 mg BID MATT Administration Melatonin 5 mg 07/09/24 21:00 07/10/24 01:22 Melatonin 5 Mg Tablet PO 5 mg HS MATT Administration Montelukast Sodium 10 mg 07/09/24 21:00 07/10/24 01:22 Montelukast Sodium 10 Mg Tablet PO 10 mg HS MATT Administration Pantoprazole Sodium 40 mg 07/09/24 09:00 07/09/24 09:22 Pantoprazole 40 Mg Tablet PO 40 mg DAILY MATT Administration Pentoxifylline 400 mg 07/09/24 09:00 07/09/24 17:54 Pentoxifylline 400 Mg Tabcr PO 400 mg TID MATT Administration Tamsulosin HCl 0.4 mg 07/09/24 09:00 07/09/24 09:18 Tamsulosin Hcl 0.4 Mg Capsule PO 0.4 mg DAILY MATT Administration Radiology Results: ITS Impressions Chest X-Ray 07/09/24 11:59 Impression: 1: No acute cardiopulmonary disease. Abdomen X-Ray 07/09/24 12:01 IMPRESSION: 1: No acute abdominal abnormality identified. 2: Right hip arthroplasty with remodeling of the acetabulum and superior subluxation of the acetabular component. Chest/Abdomen/Pelvis CT 07/09/24 15:01 IMPRESSION: CHEST: 1. Bronchiectatic changes in the lower lobes superiorly suggestive of fibrotic changes. 2. Dilated esophagus with thickening of the wall suggestive of esophagitis. ABDOMEN/PELVIS: 1. Cholelithiasis. 2. No evidence of appendicitis, diverticulitis or intestinal obstruction. No definite kidney stones. Labs Labs: Laboratory Results - last 24 hr 07/09/24 07/09/24 07/09/24 07:16 07:19 09:01 WBC RBC Hgb Hct MCV MCH MCHC RDW Plt Count MPV Immature Gran % (Auto) Neut % (Auto) Lymph % (Auto) [place] % (Auto) Eos % (Auto) Baso % (Auto) Lymph # (Auto) [place] # (Auto) Eos # (Auto) Baso # (Auto) Abs Immat Gran (auto) Absolute Neuts (auto) Absolute Nucleated RBC Nucleated RBC % Sodium Potassium Chloride Carbon Dioxide Anion Gap BUN Creatinine Estim Creat Clear Calc Estimated GFR Glucose POC Capillary Glucose 58 L* Calcium Iron 32 L TIBC 183 L % Saturation 17 L Total Bilirubin AST ALT Alkaline Phosphatase Total Protein Albumin Vitamin B12 456.0 Folate 11.1 Hep Bs Antigen Negative Hep Bs Antibody Positive 07/09/24 07/09/24 07/09/24 09:45 12:10 17:17 WBC RBC Hgb Hct MCV MCH MCHC RDW Plt Count MPV Immature Gran % (Auto) Neut % (Auto) Lymph % (Auto) [place] % (Auto) Eos % (Auto) Baso % (Auto) Lymph # (Auto) [place] # (Auto) Eos # (Auto) Baso # (Auto) Abs Immat Gran (auto) Absolute Neuts (auto) Absolute Nucleated RBC Nucleated RBC % Sodium Potassium Chloride Carbon Dioxide Anion Gap BUN Creatinine Estim Creat Clear Calc Estimated GFR Glucose POC Capillary Glucose 125 H 97 74 Calcium Iron TIBC % Saturation Total Bilirubin AST ALT Alkaline Phosphatase Total Protein Albumin Vitamin B12 Folate Hep Bs Antigen Hep Bs Antibody 07/09/24 07/10/24 21:21 05:35 WBC 9.3 RBC 2.93 L Hgb 8.8 L Hct 28.9 L MCV 98.6 MCH 30.0 MCHC 30.4 L RDW 14.6 H Plt Count 197 MPV 8.4 Immature Gran % (Auto) 0.6 H Neut % (Auto) 76.3 H Lymph % (Auto) 13.9 L [place] % (Auto) 5.9 Eos % (Auto) 2.8 Baso % (Auto) 0.5 Lymph # (Auto) 1.29 [place] # (Auto) 0.6 Eos # (Auto) 0.3 Baso # (Auto) 0.1 Abs Immat Gran (auto) 0.06 H Absolute Neuts (auto) 7.1 H Absolute Nucleated RBC 0.000 Nucleated RBC % 0.0 Sodium 138 Potassium 3.8 Chloride 104 Carbon Dioxide 30 Anion Gap 4 BUN 17 D Creatinine 4.60 H Estim Creat Clear Calc 15 Estimated GFR 13 L Glucose 127 H POC Capillary Glucose 152 H Calcium 8.6 Iron TIBC % Saturation Total Bilirubin 0.4 AST 15 L ALT 7 Alkaline Phosphatase 93 Total Protein 6.0 L Albumin 3.0 L Vitamin B12 Folate Hep Bs Antigen Hep Bs Antibody Quality VTE Prophylaxis VTE prophylaxis: mechanical ordered
[2024-07-10 08:44] LABS: Glucose Point of Care 240 mg/dl (65-105)
[2024-07-10] MEDS: ISOSORBIDE MONONITRATE 60 MG TAB.ER.24H PO ×2 (09:36→16:55)
[2024-07-10] MEDS: TAMSULOSIN HCL 0.4 MG CAPSULE PO (09:36)
[2024-07-10] MEDS: ASPIRIN 81 MG CHEWABLE TABLET PO (09:36)
[2024-07-10] MEDS: levETIRAcetam 500 MG TABLET PO ×2 (09:36→16:55)
[2024-07-10] MEDS: PANTOPRAZOLE 40 MG TABLET PO (09:36)
[2024-07-10] MEDS: amLODIPine BESYLATE 5 MG TABLET PO (09:36)
[2024-07-10] MEDS: FERROUS SULFATE 325 MG TABLET DR PO (09:36)
[2024-07-10] MEDS: ESCITALOPRAM OXALATE 10 MG TABLET PO (09:36)
[2024-07-10] MEDS: PENTOXIFYLLINE 400 MG TABCR PO ×3 (09:37→16:57)
[2024-07-10] MEDS: carvediloL 3.125 MG TABLET PO (09:37)
--- NOTE | 2024-07-10 11:37 | P.PNNP_ITS ---
Progress Note: A&P Assessment and Plan (1) End stage renal disease: Code(s): N18.6 - End stage renal disease Status: Chronic Assessment and Plan: * HD yesterday * continue/resume Thursday, Thursday, Thursday dialysis schedule tomorrow * follow electrolytes, clearance, and volume status (2) C. difficile colitis: Code(s): A04.72 - Enterocolitis due to Clostridium difficile, not specified as recurrent Status: Acute Assessment and Plan: * noted diarrhea on admission with abdominal pain * C. diff toxin assay positive (and was positive on last hospitalization as we ll) * CT scan pending * on isolation * on dificid therapy (3) Urinary tract infection: Qualifiers: Encounter type: initial encounter Indwelling urinary catheter type: indwelling urethral catheter Urinary tract infection type: catheter-associated UTI Qualified Code(s): T83.511A - Infection and inflammatory reaction due to i ndwelling urethral catheter, initial encounter; N39.0 - Urinary tract infection, site not specified Code(s): N39.0 - Urinary tract infection, site not specified Status: Acute Assessment and Plan: * admission UA suggestive (but patient with chronic catherine) * apparently, has catherine catheter due to neurogenic bladder along with the fact he still make urine * catherine catheter was removed on last admission (but likely replaced at nursing facility after discharge presumably due to urinary retention) * catherine catheter exchanged in ER * follow urine culture results * on antibiotics (4) Hypertension: Code(s): I10 - Essential (primary) hypertension Status: Chronic Assessment and Plan: * reasonable control * follow trend of hemodynamics (5) Weakness generalized: Code(s): R53.1 - Weakness Status: Acute Assessment and Plan: * suspect related to deconditioning and acute infection/illness * continue supportive therapy (6) Type 2 diabetes mellitus: Code(s): E11.9 - Type 2 diabetes mellitus without complications Status: Chronic Assessment and Plan: * follow accu-cheks * glycemic control per hospitalists Will continue to follow Subjective Date/time seen: 07/10/24 11:37 Interval history: Follow-up for end stage renal disease on hemodialysis. Tolerated dialysis treatment late yesterday evening without any issues or problems; no new issues or problems to report at this time; no events overnight or earlier today. Exam Narrative: General: mildly ill-appearing male in NAD Heart: normal S1 and S2; no rub Lungs: clear anteriorly; coarse at bases Abdomen: soft, nontender, nondistended, positive bowel sounds Extremities: no cyanosis or clubbing; no edema; s/p left BKA Skin: warm and dry Objective Data Vital Signs Vital Signs: Vital Signs Temp Pulse Resp BP Pulse Ox O2 Del Method FiO2 07/10/24 09:37 Room Air 07/10/24 09:37 65 07/10/24 07:57 97 Room Air 21 07/10/24 05:38 97.1 F L 70 20 147/69 H 99 07/10/24 00:31 98.4 F 71 18 165/76 H 96 07/10/24 00:27 71 165/76 H 07/09/24 22:00 97.5 F L 68 20 129/58 L 100 07/09/24 20:00 Room Air 07/09/24 22:15 68 144/70 H 07/09/24 22:00 66 151/68 H 07/10/24 00:15 71 148/77 H 07/10/24 00:00 68 164/79 H 07/09/24 23:45 70 156/77 H 07/09/24 23:30 72 161/78 H 07/09/24 23:15 70 160/76 H 07/09/24 23:00 69 158/88 H 07/09/24 22:45 69 163/82 H 07/09/24 22:30 60 151/68 H 07/09/24 21:54 74 140/69 07/09/24 21:39 98.8 F 73 18 136/65 98 07/09/24 17:54 60 07/09/24 15:56 97.1 F L 66 18 125/44 L 100 Intake/Output Intake/Output: Intake & Output 07/07/24 07/08/24 07/09/24 07/10/24 23:59 23:59 23:59 23:59 Intake Total 910 860 Output Total 200 150 Balance 710 710 Meds/Results Medications: Active Medications Generic Name Dose Route Start Last Admin Trade Name Freq PRN Reason Stop Dose Admin Acetaminophen 650 mg 07/09/24 06:30 Acetaminophen 325 Mg Tablet PO Q6H PRN Pain (Scale Score 1-3) Amlodipine Besylate 5 mg 07/09/24 09:00 07/10/24 09:36 Amlodipine Besylate 5 Mg Tablet PO 5 mg DAILY MATT Administration Apixaban 2.5 mg 07/09/24 09:00 07/09/24 09:22 Apixaban 2.5 Mg Tablet PO 2.5 mg BID MATT Administration Aspirin 81 mg 07/09/24 08:00 07/10/24 09:36 Aspirin 81 Mg Chewable Tablet PO 81 mg DAILY@0800 MATT Administration Atorvastatin Calcium 20 mg 07/09/24 21:00 07/10/24 01:23 Atorvastatin 20 Mg Tablet PO 20 mg HS MATT Administration Calcium Carbonate 200 mg 07/09/24 21:00 07/10/24 01:22 Calcium Carbonate (Tums) 500 Mg (200 Mg Elemental) BY MOUTH 200 mg HS MATT Administration Carvedilol 3.125 mg 07/09/24 09:00 07/10/24 09:37 Carvedilol 3.125 Mg Tablet PO 3.125 mg BID MATT Administration Dextrose 12.5 gm 07/09/24 07:02 07/09/24 09:22 Dextrose 50% 25 Gm/50 Ml Syringe IV PUSH 12.5 gm PRN PRN Administration Hypoglycemia Protocol Escitalopram Oxalate 10 mg 07/09/24 09:00 07/10/24 09:36 Escitalopram Oxalate 10 Mg Tablet PO 10 mg DAILY MATT Administration Ferrous Sulfate 325 mg 07/10/24 09:00 07/10/24 09:36 Ferrous Sulfate [address] PO 325 mg DAILY MATT Administration Fidaxomicin 200 mg 07/09/24 09:00 07/10/24 09:36 Fidaxomicin 200 Mg Tablet PO 07/19/24 21:00 200 mg Q12HR MATT Administration Glucagon 1 mg 07/09/24 07:02 Glucagon For Inj 1 Mg Vial IM PRN PRN Hypoglycemia Protocol Glucose 15 gm 07/09/24 07:02 Glucose Oral Gel 15 Gm Of Glucse In 37.5 Gm Tube PO PRN PRN Hypoglycemia Protocol Dextrose 1,000 mls @ 100 mls/hr 07/09/24 07:02 Dextrose 5% 1,000 Ml IVPB PRN PRN Hypoglycemia Protocol Albumin Human 50 mls @ 999 mls/hr 07/09/24 17:28 Albutein IVPB 08/08/24 17:27 Q10M PRN HYPOTENSION Insulin Glargine 12 units 07/09/24 21:00 07/10/24 01:23 Insulin Glargine (*Bkc) 100 Units/Ml SUB-Q 12 units HS MATT Administration Isosorbide Mononitrate 60 mg 07/09/24 09:00 07/10/24 09:36 Isosorbide Mononitrate 60 Mg Tab.Er.24h PO 60 mg BID MATT Administration Levetiracetam 500 mg 07/09/24 09:00 07/10/24 09:36 Levetiracetam 500 Mg Tablet PO 500 mg BID MATT Administration Melatonin 5 mg 07/09/24 21:00 07/10/24 01:22 Melatonin 5 Mg Tablet PO 5 mg HS MATT Administration Montelukast Sodium 10 mg 07/09/24 21:00 07/10/24 01:22 Montelukast Sodium 10 Mg Tablet PO 10 mg HS MATT Administration Pantoprazole Sodium 40 mg 07/09/24 09:00 07/10/24 09:36 Pantoprazole 40 Mg Tablet PO 40 mg DAILY MATT Administration Pentoxifylline 400 mg 07/09/24 09:00 07/10/24 09:37 Pentoxifylline 400 Mg Tabcr PO 400 mg TID MATT Administration Tamsulosin HCl 0.4 mg 07/09/24 09:00 07/10/24 09:36 Tamsulosin Hcl 0.4 Mg Capsule PO 0.4 mg DAILY MATT Administration Radiology Results: ITS Impressions Chest X-Ray 07/09/24 11:59 Impression: 1: No acute cardiopulmonary disease. Abdomen X-Ray 07/09/24 12:01 IMPRESSION: 1: No acute abdominal abnormality identified. 2: Right hip arthroplasty with remodeling of the acetabulum and superior subluxation of the acetabular component. Chest/Abdomen/Pelvis CT 07/09/24 15:01 IMPRESSION: CHEST: 1. Bronchiectatic changes in the lower lobes superiorly suggestive of fibrotic changes. 2. Dilated esophagus with thickening of the wall suggestive of esophagitis. ABDOMEN/PELVIS: 1. Cholelithiasis. 2. No evidence of appendicitis, diverticulitis or intestinal obstruction. No definite kidney stones. Labs Labs: Laboratory Tests 07/10/24 05:35 07/10/24 05:35 Calcium 8.6 Total Bilirubin 0.4 AST 15 L ALT 7 Alkaline Phosphatase 93 Total Protein 6.0 L Albumin 3.0 L
[2024-07-10 12:18] LABS: Glucose Point of Care 158 mg/dl (65-105)
[2024-07-10 17:31] LABS: Glucose Point of Care 114 mg/dl (65-105)
[2024-07-11] VITALS (20 sets, daily range): BP systolic 126–158; BP diastolic 52–102; PULSE 53–73; RESP 16–20; TEMP 36.1–37; O2SAT 98–100
[2024-07-11 06:00] LABS: Basophils Percent Auto 0.5 % (0.2-1.2); Eosinophils Absolute Auto 0.3 K/mm3 (0-0.3); Eosinophils Percent Auto 3.2 % (0-4.4); Hematocrit 27.2 % (42.0-52.0); Hemoglobin 8.5 g/dL (14.0-18.0); Immature Granulocyte Absolute 0.03 K/mm3 (0.00-0.031); Immature Granulocyte Percent A 0.4 % (0-0.5); Lymphocytes Absolute Auto 1.37 K/mm3 (0.9-3.2); Lymphocytes Percent Auto 16.8 % (18.3-44.2); Mean Corpuscular HGB Conc 31.3 g/dl (32-36); Mean Corpuscular Volume 99.3 fl (80-100); Monocytes Absolute Auto 0.6 K/mm3 (0.1-0.6); Monocytes Percent Auto 7.1 % (2.6-8.5); Neutrophils Absolute Auto 5.9 K/mm3 (1.3-6.7); Platelet Count Result 217 k/mm3 (150-375); Red Blood Count 2.74 M/mm3 (4.6-6.20); Red Cell Distribution Width 14.5 % (11.5-14.5); White Blood Count 8.2 K/mm3 (4.5-10.0)
[2024-07-11 06:15] LABS: Alanine Aminotransferase 7 U/L (6-50); Albumin Level 3.1 g/dL (3.5-5.1); Alkaline Phosphatase 89 U/L (38-126); Anion Gap 9 mmol/L (4-12); Aspartate Amino Transferase 14 U/L (17-59); Bilirubin,Total 0.3 mg/dL (0.2-1.3); Blood Urea Nitrogen 26 mg/dL (9-20); Carbon Dioxide 26 mmol/L (22-30); Chloride 103 mmol/L (98-107); Estimated CRCL calculation 11 ml/min; Estimated Glomerular Filt Rate 9; Glucose 98 mg/dL (65-110); Sodium 138 mmol/L (137-145)
[2024-07-11 08:14] LABS: Glucose Point of Care 158 mg/dl (65-105)
[2024-07-11 11:55] LABS: Glucose Point of Care 128 mg/dl (65-105)
--- NOTE | 2024-07-11 11:57 | P.PNIM_ITS ---
Progress Note: A&P Assessment and Plan (1) Abnormal finding on urinalysis: Code(s): R82.90 - Unspecified abnormal findings in urine Status: Acute Assessment and Plan: - UA: red in color with turbid appearance and 3+ protein, 2+ blood, positive nitrates, 2+ bili, 3+ leukocytes, > 100 RBC, > 100 WBC, 4+ bacteria. Occasional squamous cells which could indicate contamination. - UC obtained on 07/09: pending - no previous micro to be reviewed - started on Rocephin on 07/09. Urine culture still pending -KUB negative for kidney stones. Hematuria has resolved. Resume Eliquis (2) ESRD on hemodialysis: Code(s): N18.6 - End stage renal disease; Z99.2 - Dependence on renal dialysis Status: Acute Assessment and Plan: End-stage renal disease on hemodialysis Thursday. Patient missed his dialysis appointment on 07/08 due to be sick. - Nephrology was consulted for dialysis needs - Chest XR with no acute cardiopulmonary process - Received short dialysis treatment on 07/09, will resume thu/thu/thu schedule - Renally dose medications - Patient has a Fournier catheter in place which appears to be chronic for unknown reason as he is end-stage renal disease requiring dialysis. This was removed last admission, but was likely replaced at nursing facility. Exchanged in the ED. (3) C. difficile colitis: Code(s): A04.72 - Enterocolitis due to Clostridium difficile, not specified as recurrent Status: Acute Assessment and Plan: - C dif postive 07/09 - Fecal occult positive. H/H appears at baseline. Iron panel, B12 and folate ordered. - Started on Dificid 07/09 - CT abdomen/pelvis: Cholelithiasis.No evidence of appendicitis, diverticulitis or intestinal obstruction. No definite kidney stones. - Isolate precautions - Monitor vital signs, I&Os, track stool output, watch for bloody stools, neuro status and patient is a fall risk - Monitor serum electrolytes and CBC (4) Iron deficiency anemia: Code(s): D50.9 - Iron deficiency anemia, unspecified Status: Acute Assessment and Plan: - Fecal occult positive likely secondary to ongoing cdif infection. H/H appears at baseline. - Iron panel: iron 32, TIBC 183, % sat 17 - B12 and folate WNL - Started on iron supplementation (5) Type 2 diabetes mellitus: Code(s): E11.9 - Type 2 diabetes mellitus without complications Status: Chronic Assessment and Plan: - hypoglycemia protocol - POC blood glucose ACHS - home medication - lantus 15 units - correct regimen ordered - lantus 12 units (decreased by 20% during admission) - A1C 6.7 on 04/02/24 (6) Hypertension: Code(s): I10 - Essential (primary) hypertension Status: Chronic Assessment and Plan: Chronic, well controlled on home medications. - amlodipine 5 mg daily - carvedilol 3.125 mg BID - imdur 60 mg BID - monitor (7) Atrial fibrillation: Code(s): I48.91 - Unspecified atrial fibrillation Status: Acute Assessment and Plan: Chronic, rate controlled and on anticoagulation. - Eliquis 2.5 mg BID, on hold for hematuria. Likely to resume tomorrow. - carvedilol 3.125 mg BID - Monitor (8) History of seizure: Code(s): Z87.898 - Personal history of other specified conditions Status: Acute Assessment and Plan: Chronic, continue home Keppra 500 mg BID. Subjective Date/time seen: 07/11/24 11:57 Interval history: No overnight events. Patient reports no problem. Hematuria has resolved. Urine culture still pending. Review of Systems Review of Systems: All systems reviewed & are unremarkable except as noted in HPI and below Exam Narrative: General: male in no acute respiratory distress who is nontoxic appearing, lying semi recumbent in bed. HEENT: No facial asymmetry. Blind. Chest: Lungs are clear to auscultation bilaterally. No wheezes or crackles. CV: Heart was regular rate and rhythm. S1/S2. No murmurs, gallops, or rubs. Abd: Abdomen was soft. Nontender. Nondistended. Positive bowel sounds. No organomegaly or masses. Ext: No clubbing, cyanosis, or edema. 2+ DP pulses bilaterally. Left BKA Neuro: Patient is alert and oriented x2. Speech is clear. Fistula to the right upper extremity. Objective Data Vital Signs Vital Signs: Vital Signs - 24 hr 07/10/24 15:19 07/10/24 16:57 07/10/24 21:02 Temperature 97.1 F L 97.8 F Pulse Rate 57 L 50 L 67 Respiratory Rate 18 20 Blood Pressure 137/55 L 143/66 H Pulse Oximetry 98 99 Oxygen Delivery 07/10/24 20:00 07/11/24 06:00 07/11/24 09:37 Temperature 97.1 F L Pulse Rate 53 L Respiratory Rate 20 Blood Pressure 126/52 L Pulse Oximetry 99 Oxygen Delivery Room Air Room Air Intake/Output Intake/Output: Intake & Output 07/08/24 07/09/24 07/10/24 07/11/24 23:59 23:59 23:59 23:59 Intake Total 910 1565 740 Output Total 200 250 300 Balance 710 1315 440 Meds/Results Medications: Active Medications Generic Name Dose Route Start Last Admin Trade Name Freq PRN Reason Stop Dose Admin Acetaminophen 650 mg 07/09/24 06:30 Acetaminophen 325 Mg Tablet PO Q6H PRN Pain (Scale Score 1-3) Amlodipine Besylate 5 mg 07/09/24 09:00 07/11/24 08:40 Amlodipine Besylate 5 Mg Tablet PO Not Given DAILY MATT Apixaban 2.5 mg 07/09/24 09:00 07/09/24 09:22 Apixaban 2.5 Mg Tablet PO 2.5 mg BID MATT Administration Aspirin 81 mg 07/09/24 08:00 07/11/24 08:40 Aspirin 81 Mg Chewable Tablet PO Not Given DAILY@0800 MATT Atorvastatin Calcium 20 mg 07/09/24 21:00 07/10/24 20:45 Atorvastatin 20 Mg Tablet PO 20 mg HS MATT Administration Calcium Carbonate 200 mg 07/09/24 21:00 07/10/24 20:45 Calcium Carbonate (Tums) 500 Mg (200 Mg Elemental) BY MOUTH 200 mg HS MTAT Administration Carvedilol 3.125 mg 07/09/24 09:00 07/11/24 08:40 Carvedilol 3.125 Mg Tablet PO Not Given BID MATT Dextrose 12.5 gm 07/09/24 07:02 07/09/24 09:22 Dextrose 50% 25 Gm/50 Ml Syringe IV PUSH 12.5 gm PRN PRN Administration Hypoglycemia Protocol Epoetin Lewis-epbx 10,000 units 07/11/24 15:00 Epoetin Lewis-Epbx 10,000 Units/Ml Vial IV PUSH 07/11/24 15:01 ONCE ONE Escitalopram Oxalate 10 mg 07/09/24 09:00 07/11/24 08:40 Escitalopram Oxalate 10 Mg Tablet PO Not Given DAILY MATT Ferrous Sulfate 325 mg 07/10/24 09:00 07/11/24 08:40 Ferrous Sulfate [address] PO Not Given DAILY MATT Fidaxomicin 200 mg 07/09/24 09:00 07/11/24 08:40 Fidaxomicin 200 Mg Tablet PO 07/19/24 21:00 Not Given Q12HR MATT Glucagon 1 mg 07/09/24 07:02 Glucagon For Inj 1 Mg Vial IM PRN PRN Hypoglycemia Protocol Glucose 15 gm 07/09/24 07:02 Glucose Oral Gel 15 Gm Of Glucse In 37.5 Gm Tube PO PRN PRN Hypoglycemia Protocol Dextrose 1,000 mls @ 100 mls/hr 07/09/24 07:02 Dextrose 5% 1,000 Ml IVPB PRN PRN Hypoglycemia Protocol Albumin Human 50 mls @ 999 mls/hr 07/09/24 17:28 Albutein IVPB 08/08/24 17:27 Q10M PRN HYPOTENSION Insulin Glargine 12 units 07/09/24 21:00 07/10/24 20:46 Insulin Glargine (*Bkc) 100 Units/Ml SUB-Q 12 units HS MATT Administration Isosorbide Mononitrate 60 mg 07/09/24 09:00 07/11/24 08:40 Isosorbide Mononitrate 60 Mg Tab.Er.24h PO Not Given BID MATT Levetiracetam 500 mg 07/09/24 09:00 07/11/24 08:40 Levetiracetam 500 Mg Tablet PO Not Given BID MATT Melatonin 5 mg 07/09/24 21:00 07/10/24 20:46 Melatonin 5 Mg Tablet PO 5 mg HS MATT Administration Montelukast Sodium 10 mg 07/09/24 21:00 07/10/24 20:46 Montelukast Sodium 10 Mg Tablet PO 10 mg HS MATT Administration Pantoprazole Sodium 40 mg 07/09/24 09:00 07/11/24 08:40 Pantoprazole 40 Mg Tablet PO Not Given DAILY MATT Pentoxifylline 400 mg 07/09/24 09:00 07/11/24 08:40 Pentoxifylline 400 Mg Tabcr PO Not Given TID MATT Tamsulosin HCl 0.4 mg 07/09/24 09:00 07/11/24 08:41 Tamsulosin Hcl 0.4 Mg Capsule PO Not Given DAILY MATT Radiology Results: ITS Impressions Chest X-Ray 07/09/24 11:59 Impression: 1: No acute cardiopulmonary disease. Abdomen X-Ray 07/09/24 12:01 IMPRESSION: 1: No acute abdominal abnormality identified. 2: Right hip arthroplasty with remodeling of the acetabulum and superior subluxation of the acetabular component. Chest/Abdomen/Pelvis CT 07/09/24 15:01 IMPRESSION: CHEST: 1. Bronchiectatic changes in the lower lobes superiorly suggestive of fibrotic changes. 2. Dilated esophagus with thickening of the wall suggestive of esophagitis. ABDOMEN/PELVIS: 1. Cholelithiasis. 2. No evidence of appendicitis, diverticulitis or intestinal obstruction. No definite kidney stones. Labs Labs: Laboratory Results - last 24 hr 07/10/24 07/10/24 07/10/24 12:16 17:29 20:46 WBC RBC Hgb Hct MCV MCH MCHC RDW Plt Count MPV Immature Gran % (Auto) Neut % (Auto) Lymph % (Auto) Dickenson % (Auto) Eos % (Auto) Baso % (Auto) Lymph # (Auto) Dickenson # (Auto) Eos # (Auto) Baso # (Auto) Abs Immat Gran (auto) Absolute Neuts (auto) Absolute Nucleated RBC Nucleated RBC % Sodium Potassium Chloride Carbon Dioxide Anion Gap BUN Creatinine Estim Creat Clear Calc Estimated GFR Glucose POC Capillary Glucose 158 H 114 H 158 H Calcium Total Bilirubin AST ALT Alkaline Phosphatase Total Protein Albumin 07/11/24 07/11/24 05:39 11:26 WBC 8.2 RBC 2.74 L Hgb 8.5 L Hct 27.2 L MCV 99.3 MCH 31.0 MCHC 31.3 L RDW 14.5 Plt Count 217 MPV 9.0 Immature Gran % (Auto) 0.4 Neut % (Auto) 72.0 Lymph % (Auto) 16.8 L Dickenson % (Auto) 7.1 Eos % (Auto) 3.2 Baso % (Auto) 0.5 Lymph # (Auto) 1.37 Dickenson # (Auto) 0.6 Eos # (Auto) 0.3 Baso # (Auto) 0.0 Abs Immat Gran (auto) 0.03 Absolute Neuts (auto) 5.9 Absolute Nucleated RBC 0.000 Nucleated RBC % 0.0 Sodium 138 Potassium 4.0 Chloride 103 Carbon Dioxide 26 Anion Gap 9 BUN 26 H Creatinine 6.30 H Estim Creat Clear Calc 11 Estimated GFR 9 L Glucose 98 POC Capillary Glucose 128 H Calcium 8.0 L Total Bilirubin 0.3 AST 14 L ALT 7 Alkaline Phosphatase 89 Total Protein 6.0 L Albumin 3.1 L
--- NOTE | 2024-07-11 14:38 | PC.NURSE ---
Patient off of unit to dialysis
[2024-07-11] MEDS: EPOETIN ALFA-EPBX 10,000 UNITS/ML VIAL 10000 UNITS IV PUSH (15:54)
--- NOTE | 2024-07-11 16:13 | P.PNNP_ITS ---
Progress Note: A&P Assessment and Plan (1) End stage renal disease: Code(s): N18.6 - End stage renal disease Status: Chronic Assessment and Plan: * HD today * continue/resume Thursday, Thursday, Thursday dialysis schedule tomorrow * follow electrolytes, clearance, and volume status (2) C. difficile colitis: Code(s): A04.72 - Enterocolitis due to Clostridium difficile, not specified as recurrent Status: Acute Assessment and Plan: * noted diarrhea on admission with abdominal pain * C. diff toxin assay positive (and was positive on last hospitalization as well) * CT scan pending * on isolation * on dificid therapy (3) Urinary tract infection: Qualifiers: Encounter type: initial encounter Indwelling urinary catheter type: indwelling urethral catheter Urinary tract infection type: catheter-associated UTI Qualified Code(s): T83.511A - Infection and inflammatory reaction due to indwelling urethral catheter, initial encounter; N39.0 - Urinary tract infection, site not specified Code(s): N39.0 - Urinary tract infection, site not specified Status: Acute Assessment and Plan: * admission UA suggestive (but patient with chronic catherine) * apparently, has catherine catheter due to neurogenic bladder along with the fact he still make urine * catherine catheter was removed on last admission (but likely replaced at nursing facility after discharge presumably due to urinary retention) * catherine catheter exchanged in ER * follow urine culture results * on antibiotics (4) Hypertension: Code(s): I10 - Essential (primary) hypertension Status: Chronic Assessment and Plan: * reasonable control * follow trend of hemodynamics (5) Weakness generalized: Code(s): R53.1 - Weakness Status: Acute Assessment and Plan: * suspect related to deconditioning and acute infection/illness * continue supportive therapy (6) Type 2 diabetes mellitus: Code(s): E11.9 - Type 2 diabetes mellitus without complications Status: Chronic Assessment and Plan: * follow accu-cheks * glycemic control per hospitalists Will continue to follow Subjective Date/time seen: 07/11/24 16:13 Interval history: Follow-up for end stage renal disease on hemodialysis. Tolerating dialysis treatment at the time of my visit (seen on HD at 4:00PM); no apparent distress noted at this time; hematuria appears to have resolved with supportive therapy; no issues/events overnight or earlier this morning. Exam Narrative: General: mildly ill-appearing male in NAD Heart: normal S1 and S2; no rub Lungs: clear anteriorly; coarse at bases Abdomen: soft, nontender, nondistended, positive bowel sounds Extremities: no cyanosis or clubbing; no edema; s/p left BKA Skin: warm and intact Objective Data Vital Signs Vital Signs: Vital Signs Temp Pulse Resp BP Pulse Ox O2 Del Method 07/11/24 14:00 97.0 F L 56 L 18 148/78 H 100 07/11/24 09:37 Room Air 07/11/24 06:00 97.1 F L 53 L 20 126/52 L 99 07/10/24 20:00 Room Air 07/10/24 21:02 97.8 F 67 20 143/66 H 99 Intake/Output Intake/Output: Intake & Output 07/08/24 07/09/24 07/10/24 07/11/24 23:59 23:59 23:59 23:59 Intake Total 910 1565 1700 Output Total 200 250 500 Balance 710 1315 1200 Meds/Results Medications: Active Medications Generic Name Dose Route Start Last Admin Trade Name Freq PRN Reason Stop Dose Admin Acetaminophen 650 mg 07/09/24 06:30 Acetaminophen 325 Mg Tablet PO Q6H PRN Pain (Scale Score 1-3) Amlodipine Besylate 5 mg 07/09/24 09:00 07/11/24 08:40 Amlodipine Besylate 5 Mg Tablet PO Not Given DAILY MATT Apixaban 2.5 mg 07/09/24 09:00 07/11/24 17:02 Apixaban 2.5 Mg Tablet PO Not Given BID MATT Aspirin 81 mg 07/09/24 08:00 07/11/24 08:40 Aspirin 81 Mg Chewable Tablet PO Not Given DAILY@0800 MATT Atorvastatin Calcium 20 mg 07/09/24 21:00 07/10/24 20:45 Atorvastatin 20 Mg Tablet PO 20 mg HS MATT Administration Calcium Carbonate 200 mg 07/09/24 21:00 07/10/24 20:45 Calcium Carbonate (Tums) 500 Mg (200 Mg Elemental) BY MOUTH 200 mg HS MATT Administration Carvedilol 3.125 mg 07/09/24 09:00 07/11/24 17:03 Carvedilol 3.125 Mg Tablet PO Not Given BID MATT Dextrose 12.5 gm 07/09/24 07:02 07/09/24 09:22 Dextrose 50% 25 Gm/50 Ml Syringe IV PUSH 12.5 gm PRN PRN Administration Hypoglycemia Protocol Escitalopram Oxalate 10 mg 07/09/24 09:00 07/11/24 08:40 Escitalopram Oxalate 10 Mg Tablet PO Not Given DAILY MATT Ferrous Sulfate 325 mg 07/10/24 09:00 07/11/24 08:40 Ferrous Sulfate [address] PO Not Given DAILY MATT Fidaxomicin 200 mg 07/09/24 09:00 07/11/24 08:40 Fidaxomicin 200 Mg Tablet PO 07/19/24 21:00 Not Given Q12HR MATT Glucagon 1 mg 07/09/24 07:02 Glucagon For Inj 1 Mg Vial IM PRN PRN Hypoglycemia Protocol Glucose 15 gm 07/09/24 07:02 Glucose Oral Gel 15 Gm Of Glucse In 37.5 Gm Tube PO PRN PRN Hypoglycemia Protocol Dextrose 1,000 mls @ 100 mls/hr 07/09/24 07:02 Dextrose 5% 1,000 Ml IVPB PRN PRN Hypoglycemia Protocol Albumin Human 50 mls @ 999 mls/hr 07/09/24 17:28 Albutein IVPB 08/08/24 17:27 Q10M PRN HYPOTENSION Insulin Glargine 12 units 07/09/24 21:00 07/10/24 20:46 Insulin Glargine (*Bkc) 100 Units/Ml SUB-Q 12 units HS MATT Administration Isosorbide Mononitrate 60 mg 07/09/24 09:00 07/11/24 17:03 Isosorbide Mononitrate 60 Mg Tab.Er.24h PO Not Given BID MATT Levetiracetam 500 mg 07/09/24 09:00 07/11/24 17:03 Levetiracetam 500 Mg Tablet PO Not Given BID MATT Melatonin 5 mg 07/09/24 21:00 07/10/24 20:46 Melatonin 5 Mg Tablet PO 5 mg HS MATT Administration Montelukast Sodium 10 mg 07/09/24 21:00 07/10/24 20:46 Montelukast Sodium 10 Mg Tablet PO 10 mg HS MATT Administration Pantoprazole Sodium 40 mg 07/09/24 09:00 07/11/24 08:40 Pantoprazole 40 Mg Tablet PO Not Given DAILY AMTT Pentoxifylline 400 mg 07/09/24 09:00 07/11/24 17:03 Pentoxifylline 400 Mg Tabcr PO Not Given TID [facility] Tamsulosin HCl 0.4 mg 07/09/24 09:00 07/11/24 08:41 Tamsulosin Hcl 0.4 Mg Capsule PO Not Given DAILY [facility] Radiology Results: ITS Impressions Chest X-Ray 07/09/24 11:59 Impression: 1: No acute cardiopulmonary disease. Abdomen X-Ray 07/09/24 12:01 IMPRESSION: 1: No acute abdominal abnormality identified. 2: Right hip arthroplasty with remodeling of the acetabulum and superior subluxation of the acetabular component. Chest/Abdomen/Pelvis CT 07/09/24 15:01 IMPRESSION: CHEST: 1. Bronchiectatic changes in the lower lobes superiorly suggestive of fibrotic changes. 2. Dilated esophagus with thickening of the wall suggestive of esophagitis. ABDOMEN/PELVIS: 1. Cholelithiasis. 2. No evidence of appendicitis, diverticulitis or intestinal obstruction. No de finite kidney stones. Labs Labs: Laboratory Tests 07/11/24 05:39 07/11/24 05:39 Calcium 8.0 L Total Bilirubin 0.3 AST 14 L ALT 7 Alkaline Phosphatase 89 Total Protein 6.0 L Albumin 3.1 L Microbiology 07/09/24 01:34 Urine Clean Catch Urine Culture - Final
[2024-07-11] MEDS: MONTELUKAST SODIUM 10 MG TABLET PO (20:56)
[2024-07-11] MEDS: INSULIN GLARGINE (*BKC) 100 UNITS/ML 12 UNITS SUB-Q (20:56)
[2024-07-11] MEDS: MELATONIN 5 MG TABLET PO (20:56)
[2024-07-11] MEDS: ATORVASTATIN 20 MG TABLET PO (20:56)
[2024-07-11] MEDS: FIDAXOMICIN 200 MG TABLET PO (20:56)
[2024-07-11 21:12] LABS: Glucose Point of Care 153 mg/dl (65-105)
[2024-07-12 05:32] LABS: Basophils Percent Auto 0.6 % (0.2-1.2); Eosinophils Absolute Auto 0.2 K/mm3 (0-0.3); Hematocrit 28.6 % (42.0-52.0); Hemoglobin 8.9 g/dL (14.0-18.0); Immature Granulocyte Absolute 0.09 K/mm3 (0.00-0.031); Immature Granulocyte Percent A 1.3 % (0-0.5); Lymphocytes Absolute Auto 1.38 K/mm3 (0.9-3.2); Lymphocytes Percent Auto 19.5 % (18.3-44.2); Mean Corpuscular HGB Conc 31.1 g/dl (32-36); Mean Corpuscular Hemoglobin 30.5 pg (26-34); Mean Corpuscular Volume 97.9 fl (80-100); Mean Platelet Volume 8.7 fl (7.4-10.4); Monocytes Absolute Auto 0.6 K/mm3 (0.1-0.6); Neutrophils Absolute Auto 4.8 K/mm3 (1.3-6.7); Neutrophils Percent Auto 67.6 % (45.5-73.1); Platelet Count Result 194 k/mm3 (150-375); Red Blood Count 2.92 M/mm3 (4.6-6.20); Red Cell Distribution Width 14.2 % (11.5-14.5); White Blood Count 7.1 K/mm3 (4.5-10.0)
[2024-07-12 05:42] LABS: Alanine Aminotransferase 7 U/L (6-50); Albumin Level 3.2 g/dL (3.5-5.1); Alkaline Phosphatase 91 U/L (38-126); Anion Gap 5 mmol/L (4-12); Aspartate Amino Transferase 14 U/L (17-59); Bilirubin,Total 0.3 mg/dL (0.2-1.3); Blood Urea Nitrogen 17 mg/dL (9-20); Calcium 8.1 mg/dL (8.4-10.2); Carbon Dioxide 28 mmol/L (22-30); Chloride 105 mmol/L (98-107); Estimated CRCL calculation 16 ml/min; Estimated Glomerular Filt Rate 14; Glucose 90 mg/dL (65-110); Potassium 4.6 mmol/L (3.4-5.0); Sodium 138 mmol/L (137-145)
[2024-07-12 05:55] VITALS: BP 158/66; PULSE 53; RESP 16; TEMP 36.9; O2SAT 100
[2024-07-12 08:12] LABS: Glucose Point of Care 78 mg/dl (65-105)
[2024-07-12 09:20] VITALS: PULSE 60
[2024-07-12] MEDS: TAMSULOSIN HCL 0.4 MG CAPSULE PO (09:20)
[2024-07-12] MEDS: ASPIRIN 81 MG CHEWABLE TABLET PO (09:20)
[2024-07-12] MEDS: FIDAXOMICIN 200 MG TABLET PO (09:20)
[2024-07-12] MEDS: levETIRAcetam 500 MG TABLET PO (09:20)
[2024-07-12] MEDS: ESCITALOPRAM OXALATE 10 MG TABLET PO (09:20)
[2024-07-12] MEDS: APIXABAN 2.5 MG TABLET PO (09:20)
[2024-07-12] MEDS: FERROUS SULFATE 325 MG TABLET DR PO (09:20)
[2024-07-12] MEDS: PENTOXIFYLLINE 400 MG TABCR PO (09:20)
[2024-07-12] MEDS: carvediloL 3.125 MG TABLET PO (09:20)
[2024-07-12] MEDS: amLODIPine BESYLATE 5 MG TABLET PO (09:20)
[2024-07-12] MEDS: PANTOPRAZOLE 40 MG TABLET PO (09:20)
[2024-07-12] MEDS: ISOSORBIDE MONONITRATE 60 MG TAB.ER.24H PO (09:20)
[2024-07-12 12:05] LABS: Glucose Point of Care 139 mg/dl (65-105)
--- NOTE | 2024-07-12 12:20 | P.PNNP_ITS ---
Progress Note: A&P Assessment and Plan (1) End stage renal disease: Code(s): N18.6 - End stage renal disease Status: Chronic Assessment and Plan: * HD tomorrow * continue/resume Thursday, Thursday, Thursday dialysis schedule tomorrow * follow electrolytes, clearance, and volume status (2) C. difficile colitis: Code(s): A04.72 - Enterocolitis due to Clostridium difficile, not specified as recurrent Status: Acute Assessment and Plan: * noted diarrhea on admission with abdominal pain * C. diff toxin assay positive (and was positive on last hospitalization as wel l) * CT scan pending * on isolation * on dificid therapy (3) Urinary tract infection: Qualifiers: Encounter type: initial encounter Indwelling urinary catheter type: indwelling urethral catheter Urinary tract infection type: catheter-associated UTI Qualified Code(s): T83.511A - Infection and inflammatory reaction due to in dwelling urethral catheter, initial encounter; N39.0 - Urinary tract infection, site not specified Code(s): N39.0 - Urinary tract infection, site not specified Status: Acute Assessment and Plan: * admission UA suggestive (but patient with chronic catherine) * apparently, has catherine catheter due to neurogenic bladder along with the fact he still make urine * catherine catheter was removed on last admission (but likely replaced at nursing facility after discharge presumably due to urinary retention) * catherine catheter exchanged in ER * follow urine culture results * on antibiotics (4) Hypertension: Code(s): I10 - Essential (primary) hypertension Status: Chronic Assessment and Plan: * reasonable control * follow trend of hemodynamics (5) Weakness generalized: Code(s): R53.1 - Weakness Status: Acute Assessment and Plan: * suspect related to deconditioning and acute infection/illness * continue supportive therapy (6) Type 2 diabetes mellitus: Code(s): E11.9 - Type 2 diabetes mellitus without complications Status: Chronic Assessment and Plan: * follow accu-cheks * glycemic control per hospitalists Will continue to follow Subjective Date/time seen: 07/12/24 12:20 Interval history: Follow-up for end stage renal disease on hemodialysis. Tolerated dialysis treatment yesterday without any issues or problems; no new issues or problems to report at this time; no events overnight or earlier today. Exam Narrative: General: mildly ill-appearing male in NAD Heart: normal S1 and S2; no rub Lungs: clear anteriorly; coarse at bases Abdomen: soft, nontender, nondistended, positive bowel sounds Extremities: no cyanosis or clubbing; no edema; s/p left BKA Skin: no rash or nodules Objective Data Vital Signs Vital Signs: Vital Signs Temp Pulse Resp BP Pulse Ox O2 Del Method 07/12/24 08:00 Room Air 07/12/24 09:20 60 07/12/24 05:55 98.4 F 53 L 16 158/66 H 100 07/11/24 20:00 Room Air 07/11/24 17:23 57 L 140/63 07/11/24 17:15 62 133/74 07/11/24 17:00 62 153/66 H 07/11/24 16:45 62 142/68 H 07/11/24 16:30 60 148/70 H 07/11/24 16:15 61 148/65 H 07/11/24 21:05 98.6 F 60 16 156/67 H 99 07/11/24 16:00 65 142/66 H 07/11/24 15:45 58 L 158/64 H 07/11/24 15:30 58 L 140/71 07/11/24 15:15 73 139/73 07/11/24 15:00 61 147/69 H 07/11/24 14:45 60 147/64 H 07/11/24 14:30 64 143/68 H 07/11/24 14:23 59 L 147/67 H 07/11/24 17:30 98 F 57 L 18 142/60 H 98 07/11/24 14:15 98 F 66 18 139/102 H 98 07/11/24 14:00 97.0 F L 56 L 18 148/78 H 100 Intake/Output Intake/Output: Intake & Output 07/09/24 07/10/24 07/11/24 07/12/24 23:59 23:59 23:59 23:59 Intake Total 910 1565 1700 960 Output Total 602 905 5256 175 Balance 710 1315 200 785 Meds/Results Medications: Active Medications Generic Name Dose Route Start Last Admin Trade Name Freq PRN Reason Stop Dose Admin Acetaminophen 650 mg 07/09/24 06:30 Acetaminophen 325 Mg Tablet PO Q6H PRN Pain (Scale Score 1-3) Amlodipine Besylate 5 mg 07/09/24 09:00 07/12/24 09:20 Amlodipine Besylate 5 Mg Tablet PO 5 mg DAILY MATT Administration Apixaban 2.5 mg 07/09/24 09:00 07/12/24 09:20 Apixaban 2.5 Mg Tablet PO 2.5 mg BID MATT Administration Aspirin 81 mg 07/09/24 08:00 07/12/24 09:20 Aspirin 81 Mg Chewable Tablet PO 81 mg DAILY@0800 MATT Administration Atorvastatin Calcium 20 mg 07/09/24 21:00 07/11/24 20:56 Atorvastatin 20 Mg Tablet PO 20 mg HS [facility] Administration Calcium Carbonate 200 mg 07/09/24 21:00 07/11/24 20:56 Calcium Carbonate (Tums) 500 Mg (200 Mg Elemental) BY MOUTH Not Given HS [facility] Carvedilol 3.125 mg 07/09/24 09:00 07/12/24 09:20 Carvedilol 3.125 Mg Tablet PO 3.125 mg BID MATT Administration Dextrose 12.5 gm 07/09/24 07:02 07/09/24 09:22 Dextrose 50% 25 Gm/50 Ml Syringe IV PUSH 12.5 gm PRN PRN Administration Hypoglycemia Protocol Escitalopram Oxalate 10 mg 07/09/24 09:00 07/12/24 09:20 Escitalopram Oxalate 10 Mg Tablet PO 10 mg DAILY MATT Administration Ferrous Sulfate 325 mg 07/10/24 09:00 07/12/24 09:20 Ferrous Sulfate [address] PO 325 mg DAILY MATT Administration Fidaxomicin 200 mg 07/09/24 09:00 07/12/24 09:20 Fidaxomicin 200 Mg Tablet PO 07/19/24 21:00 200 mg Q12HR MATT Administration Glucagon 1 mg 07/09/24 07:02 Glucagon For Inj 1 Mg Vial IM PRN PRN Hypoglycemia Protocol Glucose 15 gm 07/09/24 07:02 Glucose Oral Gel 15 Gm Of Glucse In 37.5 Gm Tube PO PRN PRN Hypoglycemia Protocol Dextrose 1,000 mls @ 100 mls/hr 07/09/24 07:02 Dextrose 5% 1,000 Ml IVPB PRN PRN Hypoglycemia Protocol Albumin Human 50 mls @ 999 mls/hr 07/09/24 17:28 Albutein IVPB 08/08/24 17:27 Q10M PRN HYPOTENSION Insulin Glargine 12 units 07/09/24 21:00 07/11/24 20:56 Insulin Glargine (*Bkc) 100 Units/Ml SUB-Q 12 units HS MATT Administration Isosorbide Mononitrate 60 mg 07/09/24 09:00 07/12/24 09:20 Isosorbide Mononitrate 60 Mg Tab.Er.24h PO 60 mg BID MATT Administration Levetiracetam 500 mg 07/09/24 09:00 07/12/24 09:20 Levetiracetam 500 Mg Tablet PO 500 mg BID MATT Administration Melatonin 5 mg 07/09/24 21:00 07/11/24 20:56 Melatonin 5 Mg Tablet PO 5 mg HS MATT Administration Montelukast Sodium 10 mg 07/09/24 21:00 07/11/24 20:56 Montelukast Sodium 10 Mg Tablet PO 10 mg HS MATT Administration Pantoprazole Sodium 40 mg 07/09/24 09:00 07/12/24 09:20 Pantoprazole 40 Mg Tablet PO 40 mg DAILY MATT Administration Pentoxifylline 400 mg 07/09/24 09:00 07/12/24 09:20 Pentoxifylline 400 Mg Tabcr PO 400 mg TID MATT Administration Tamsulosin HCl 0.4 mg 07/09/24 09:00 07/12/24 09:20 Tamsulosin Hcl 0.4 Mg Capsule PO 0.4 mg DAILY MATT Administration Radiology Results: ITS Impressions Chest X-Ray 07/09/24 11:59 Impression: 1: No acute cardiopulmonary disease. Abdomen X-Ray 07/09/24 12:01 IMPRESSION: 1: No acute abdominal abnormality identified. 2: Right hip arthroplasty with remodeling of the acetabulum and superior subluxation of the acetabular component. Chest/Abdomen/Pelvis CT 07/09/24 15:01 IMPRESSION: CHEST: 1. Bronchiectatic changes in the lower lobes superiorly suggestive of fibrotic changes. 2. Dilated esophagus with thickening of the wall suggestive of esophagitis. ABDOMEN/PELVIS: 1. Cholelithiasis. 2. No evidence of appendicitis, diverticulitis or intestinal obstruction. No definite kidney stones. Labs Labs: Laboratory Tests 07/12/24 05:23 07/12/24 05:23 Calcium 8.1 L Total Bilirubin 0.3 AST 14 L ALT 7 Alkaline Phosphatase 91 Total Protein 7.0 Albumin 3.2 L Microbiology 07/09/24 01:34 Urine Clean Catch Urine Culture - Final
[2024-07-12 14:27] VITALS: BP 151/57; PULSE 76; RESP 16; TEMP 36.2; O2SAT 100
--- NOTE | 2024-07-12 14:41 | P.DS_ITS ---
DS: Admitting Diagnosis Discharge Date 07/12/2024 Admitting Diagnosis Abnormal urinalysis ESRD on hemodialysis C diff Iron deficiency anemia Type 2 DM HTN A fib History of seizure DS: Discharge Diagnosis Discharge Diagnosis (1) Abnormal finding on urinalysis: Code(s): R82.90 - Unspecified abnormal findings in urine Status: Acute (2) ESRD on hemodialysis: Code(s): N18.6 - End stage renal disease; Z99.2 - Dependence on renal dialysis Status: Acute (3) C. difficile colitis: Code(s): A04.72 - Enterocolitis due to Clostridium difficile, not specified as recurrent Status: Acute (4) Iron deficiency anemia: Code(s): D50.9 - Iron deficiency anemia, unspecified Status: Acute (5) Type 2 diabetes mellitus: Code(s): E11.9 - Type 2 diabetes mellitus without complications Status: Chronic (6) Hypertension: Code(s): I10 - Essential (primary) hypertension Status: Chronic (7) Atrial fibrillation: Code(s): I48.91 - Unspecified atrial fibrillation Status: Acute (8) History of seizure: Code(s): Z87.898 - Personal history of other specified conditions Status: Acute DS: Summary Hospital Course Reason for hospitalization: Abnormal urinalysis ESRD on hemodialysis C diff Iron deficiency anemia Type 2 DM HTN A fib History of seizure Hospital Course: 64-year-old male with past medical history significant for end-stage renal disease on hemodialysis MWF, legal blindness, left BKA, insulin-dependent diabetes mellitus, diabetic nephropathy, atrial fibrillation (rate controlled and anticoagulated), peripheral vascular disease, BPH, and history of stroke presents to the hospital for hematuria. Urine sample was concerning for infection and patient was started on IV antibiotics. Catherine catheter replaced in the ED. His eliquis was placed on hold for hematuria. Urine culture was negative, antibiotics stopped. Patients hematuria resolved and eliquis resumed. He states that he missed dialysis due to being sick and only missed thursday. Nephrology was consulted. Received short dialysis treatment on 07/09 and resumed thu/thu/thu schedule. During admission patient was complaining of abdominal pain and had ongoing diarrhea. Cholelithiasis.No evidence of appendicitis, diverticulitis or intestinal obstruction. No definite kidney stones. C dif positive. Fecal occult positive likely secondary to ongoing cdif infection. H/H appears at baseline, iron panel low started on supplementation. Started on dificid on 07/09. Prior to discharge patient was no longer having diarrhea and was tolerating a diet well. He denied abdominal pain and nausea/vomiting. During admission patient was having low blood glucose levels on his home lantus of 15 units. Dose decreased to 12 units and glucose levels remained stable. Remains on this dose at discharge. Patient discharged back to his facility in stable condition. He is to remain on isolation precautions and dificid for c diff. Patient to follow up with PCP in 1 week. Status at Discharge Functional status at discharge: wheelchair bound Time Spent with Patient Time attestation: Total time spent providing and/or coordinating discharge services: Exam Narrative: AF HR 76 RR 16 Spo2 100 BP 151/57 General: male in no acute respiratory distress who is nontoxic appearing, lying semi recumbent in bed. HEENT: No facial asymmetry. Blind. Chest: Lungs are clear to auscultation bilaterally. No wheezes or crackles. CV: Heart was regular rate and rhythm. S1/S2. No murmurs, gallops, or rubs. Abd: Abdomen was soft. Nontender. Nondistended. Positive bowel sounds. No organomegaly or masses. Ext: No clubbing, cyanosis, or edema. 2+ DP pulses bilaterally. Neuro: Patient is alert and oriented x2. Speech is clear. Fistula to the right upper extremity. DS: Data Data Completed and Pending Completed studies during hospitalization: Chest abdomne pelvis CT Abdomen xr chest xr Labs on day of discharge: Labs from last 24 hours 07/12/24 07/12/24 07/12/24 11:53 08:07 05:23 WBC 7.1 RBC 2.92 L Hgb 8.9 L Hct 28.6 L MCV 97.9 MCH 30.5 MCHC 31.1 L RDW 14.2 Plt Count 194 MPV 8.7 Immature Gran % (Auto) 1.3 H Neut % (Auto) 67.6 Lymph % (Auto) 19.5 Hudson % (Auto) 8.0 Eos % (Auto) 3.0 Baso % (Auto) 0.6 Lymph # (Auto) 1.38 Hudson # (Auto) 0.6 Eos # (Auto) 0.2 Baso # (Auto) 0.0 Abs Immat Gran (auto) 0.09 H Absolute Neuts (auto) 4.8 Absolute Nucleated RBC 0.000 Nucleated RBC % 0.0 Sodium 138 Potassium 4.6 Chloride 105 Carbon Dioxide 28 Anion Gap 5 BUN 17 Creatinine 4.30 H Estim Creat Clear Calc 16 Estimated GFR 14 L Glucose 90 POC Capillary Glucose 139 H 78 Calcium 8.1 L Total Bilirubin 0.3 AST 14 L ALT 7 Alkaline Phosphatase 91 Total Protein 7.0 Albumin 3.2 L 07/11/24 20:55 WBC RBC Hgb Hct MCV MCH MCHC RDW Plt Count MPV Immature Gran % (Auto) Neut % (Auto) Lymph % (Auto) Hudson % (Auto) Eos % (Auto) Baso % (Auto) Lymph # (Auto) Hudson # (Auto) Eos # (Auto) Baso # (Auto) Abs Immat Gran (auto) Absolute Neuts (auto) Absolute Nucleated RBC Nucleated RBC % Sodium Potassium Chloride Carbon Dioxide Anion Gap BUN Creatinine Estim Creat Clear Calc Estimated GFR Glucose POC Capillary Glucose 153 H Calcium Total Bilirubin AST ALT Alkaline Phosphatase Total Protein Albumin Discharge Plan Discharge Attending physician on discharge: David Acosta Consulting providers: Jennifer Coelho Discharging Clinician: Lea Griffin Anticipated Discharge Date/Time: 07/12/24 13:42 Patient Disposition: NH Long-Term/Asst Living Activity: as tolerated Diet: as tolerated, heart healthy and diabetic Discharge Instructions: Discharge disposition: Patient admitted to the hospital for blood in his urine During his admission his eliquis was held and the blood in his urine resolved, eliquis was resumed at that time and blood levels remain stable. Strict bleeding precautions since you are on Eliquis including shaving with an electric razor, holding pressure for greater than 20 minutes for injury, protection of had with any falls, etc. A urine sample was concerning for infection and his chronic catherine catheter was replaced Culture was negative Eat well balanced meals and stay hydrated Keep active to remain strong Avoid use of diapers or pads Good pearl Care every 2 hours Trend urine output Patient was diagnosed with C dif colitis during admission Started on dificid on 07/09, course to be completed on 07/19. Attached is information on these medications. Continue isolation precautions Wash your hands with soap and water often, especially after using the bathroom and before eating. Clean areas of your home that may become contaminated with C. diff with bleach Change and wash linens on a regular basis, or any time they are soiled Ensure adequate oral intake to avoid dehydration Monitor stool output Patient was having lower blood glucose levels during admission Lantus dose lowered from 15 units to 12 units Continue diabetic diet Monitor POC glucose Follow up with PCP Monitor blood pressures Take caution while standing, rising, or moving Change positions slowly taking a break between each position change If you standing feel dizzy sat back down and take a break Encouraged to continue with yearly vaccinations Return to the emergency department if he developed sudden shortness of breath, chest pain, nausea, vomiting, upset stomach or intractable diarrhea Return to the emergency department if you develop fever greater than 101.5 Follow-up with the primary care physician within 1 weeks Thank you for [facility] for your healthcare needs Patient Instructions: Antibiotic Form, Insulin Glargine (By injection), Fidaxomicin (By mouth), Apixaban (By mouth), C. Diff (Clostridioides Difficile) Infection (DC) Patient Language: Jordanian Stand Alone Forms: General Discharge Information Follow-up/Referrals: Jama Morrissey MD [Primary Care Provider] - Discharge Medications: New ferrous sulfate 325 mg (65 mg iron) Tablet,Delayed Release (Dr/Ec) 325 mg PO DAILY Qty: 30 0RF Dificid 200 mg Tablet 200 mg PO Q12HR Qty: 14 0RF Continued atorvastatin 20 mg tablet 20 mg PO HS levetiracetam 500 mg tablet 500 mg PO BID pentoxifylline 400 mg tablet extended release 400 mg PO TID carvedilol 3.125 mg tablet 3.125 mg PO BID Rx Instructions: hold for pulse less than 60 isosorbide mononitrate 60 mg tablet extended release 24 hr 60 mg PO BID tamsulosin 0.4 mg capsule 0.4 mg PO DAILY amlodipine 10 mg tablet 5 mg PO DAILY pantoprazole 40 mg tablet,delayed release (DR/EC) 40 mg PO DAILY montelukast 10 mg tablet 10 mg PO HS Eliquis 2.5 mg tablet 2.5 mg PO BID (DME) Easy Touch Safety Pen Needle 30 gauge x 5/16 needle MISCELLANEOUS Tums 750 mg 750 mg PO HS aspirin 81 mg tablet 81 mg PO DAILY cholecalciferol (vitamin D3) 2,000 units tablet 2,000 units PO DAILY melatonin 5 mg tablet 5 mg PO HS acetaminophen [Tylenol] 325 mg Tablet 650 mg PO Q6H PRN (Reason: Pain (Scale Score 1-3)) escitalopram oxalate [Lexapro] 10 mg Tablet 10 mg PO DAILY Changed insulin glargine [Lantus Solostar U-100 Insulin] 100 unit/mL (3 mL) insulin pen 12 unit SUBCUT HS Qty: 3 0RF Date of admission: 07/09/24 01:10 Primary Care Provider: Jama Morrissey Admitting Provider: Preston Carcamo V. Attending physician on admission: Lea Griffin Condition: Stable Hospitalist MIPS Heart Failure (Exclusion) Patient has history of Heart Transplant or Left Ventricular Assistive Device?: No IF YES, STOP HERE Heart Failure (Qualifier) Patient has current or prior documentation of LVEF less than or equal to 40%, or mod/servere depressed LVSF?: No IF NO, STOP HERE
[2024-07-15 10:36] LABS: Glucose Point of Care 150 mg/dl (65-105)
== END 2024-07-12 15:30 | DRG 371 ==
LOC: ANHED 23:15 → ANH3MED 07-09 01:41
PROVIDERS: Internal Medicine Nephrology; Admitting Provider Internal Medicine; Emergency Provider Emergency Medicine; PCP Hospitalist; Visit Provider Student in an Organized Health Care Education/Training Program
DX: A04.72 Enterocolitis due to Clostridium difficile, not specified as recurrent (principal); N18.6 End stage renal disease; I48.20 Chronic atrial fibrillation, unspecified; I12.0 Hypertensive chronic kidney disease with stage 5 chronic kidney disease or end stage renal disease; R31.9 Hematuria, unspecified; E11.22 Type 2 diabetes mellitus with diabetic chronic kidney disease; Z99.2 Dependence on renal dialysis; D50.9 Iron deficiency anemia, unspecified; H54.8 Legal blindness, as defined in USA; N40.0 Benign prostatic hyperplasia without lower urinary tract symptoms; I73.9 Peripheral vascular disease, unspecified; E11.319 Type 2 diabetes mellitus with unspecified diabetic retinopathy without macular edema; Z89.512 Acquired absence of left leg below knee; Z87.898 Personal history of other specified conditions; Z86.73 Personal history of transient ischemic attack (TIA), and cerebral infarction without residual deficits; Z79.82 Long term (current) use of aspirin; Z79.01 Long term (current) use of anticoagulants
CPT/HCPCS: 36415; 71045; 71250; 74018; 74176; 80053; 81001; 82274; 82607; 82746; 82948; 83540; 83550; 85025; 86706; 87086; 87088; 87340; 87493; 87641; 99285; A9270; G0257; J0696; J1815; J7030; Q5105